=== PATIENT | male | born 1950 | race Caucasian/White ===

== ENCOUNTER 2023-10-07 17:34 | Inpatient (IN) ==
--- NOTE | 2023-10-07 17:47 | Emergency Department Note ---
Impression & Plan Sacral wound, Ascites, Hypotension, CKD (chronic kidney disease) ED Provider Note NAME: LEIA JETER AGE: 73 SEX: M : 1950 ARRIVES VIA: Ambulance INFORMANT: Patient, EMS report ED PROVIDER(S): Saad Sierra MD CHIEF COMPLAINT: Dizziness, hypotension MEDICAL DECISION MAKING: Patient presented due to concern for sacral wound as well as hypotension around. IV was established and blood work was obtained. Patient was ordered empiric antibiotics as a precaution. Sacral wound was noted over the right sacral area surrounding redness noted but does not appear to be blanching but may be from chronic pressure more so than cellulitis. No purulent drainage. The patient is unaware as to whether or not he has any kidney dysfunction but does have associated CKD versus YAHAIRA with creat of 2.5. Patient white count of 11 hemoglobin 12.3 with a normal platelet count. The patient's VBG is grossly unremarkable. Lactate initially 2.8. The patient was ordered additional IV fluids as well as albumin given patient's history of cirrhosis. Procalcitonin is not elevated. Patient did have improvement in blood pressures and maps. Urinalysis does not show evidence of obvious infection. I did speak the on-call hospitalist service Dr. Honeycutt and the patient was admitted to medicine service. Discussion w/ other healthcare providers: Dr. Honeycutt inpatient medicine service Prior /Outside records reviewed: None Differential diagnosis: Infection, dehydration, metabolic abnormality, hypo/hyperglycemia, electrolyte imbalance, anemia, UTI, pneumonia, thyroid dysfunction among others were considered. Diagnostics, as interpreted by me: ECG: Sinus versus possible flutter, ventricular rate 61 wide QRS left axis deviation T wave inversions high lateral leads. Cardiac monitoring: An order was placed for continuous cardiac monitoring. The monitor shows a rate of 62 with regular rhythm. Patient was placed on pulse oximetry Medical decision rules: None Imaging studies: I informally interpreted the patient's Chest x-ray does not show evidence of obvious pneumonia. with formal report to follow. HPI:Patient presents via EMS due to concern for sacral wounds. The patient reports that he currently is in photos taken to them today and thus called EMS. The patient is from [facility] but presented here as the patient has not appreciated the care he is received through [facility]. Patient states that he was in and out of the hospital this last month and recently signed out AMA after transfer from [place] to [facility]. Patient is not on any current antibiotics. The patient reportedly was told that he has cirrhosis of the liver and possible heart condition although unclear as to what this is as the patient is unable describe it other than that. Patient denies any chest pains does have chronic shortness of breath which is unchanged. EMS reports that on arrival to the patient got lightheaded and dizzy they could not get a cycle blood pressure in a manual was 60/40. Patient does have some loose stools report that he does not take metformin. Patient does have a history of diabetes. The patient denies any falls or trauma no head or neck pain. PAST MEDICAL HISTORY: See Below PAST SURGICAL HISTORY: See Below SOCIAL HISTORY: See Below HOME MEDICATIONS: See Below ALLERGIES: See Below VITALS: See Below PHYSICAL EXAMINATION: GENERAL: NAD, non-toxic. Wearing glasses. EYE EXAM: Normal conjunctiva. PERRL, no anisocoria and EOM's grossly intact w/o pain. OROPHARYNX: Dry mucus membranes, false upper teeth in place. NECK: Trachea midline, no stridor. LUNGS: Clear to auscultation. Normal chest wall mechanics. HEART: NSR, possible subtle systolic ejection murmur. ABDOMEN: Abdomen soft, mildly distended, nontender, no masses, no rebound or guarding. BACK: No CVA TTP. SKIN: No rashes and no bruising. UPPER EXTREMITIES: Upper extremities are grossly normal. LOWER EXTREMITIES: Cooler and slightly discolored lower extremities but does have dopplerable pedal pulses bilaterally, sensate no TTP. NEURO EXAM: A&O x3, cranial nerves II-XII grossly intact, normal speech, moves all 4 extremities. Past Med/Surg History Problem List (Updated 10/08/23 @ 15:41 by Saad Sierra MD) CKD (chronic kidney disease) (Acute) Hypotension (Acute) Ascites (Acute) Sacral wound (Acute) Social History Smoking Status: Former smoker Second Hand Exposure: No; Do You Dip or Chew Tobacco: No; Tobacco Cessation Education Requested by Patient: No Hx Alcohol Use: Yes Hx Substance Use: No Preferred Language: Slovak Communication Ability: Effective Business Rules Analyst Required: No Beliefs That Will Affect Care: None Current Living Situation: Spouse Other Information That Helps Us Care for You: No Feels Safe at Home: Yes Safety Concerns: Feels Safe At This Time Assistive Devices: Walker and Other Allergies Allergies Allergy/AdvReac Type Severity Reaction Status Date / Time Unknown allergen Allergy Hives Uncoded 10/07/23 20:24 Home Meds Home Medications Medication Instructions Recorded Confirmed alfuzosin 10 mg tablet,extended 10 mg PO DAILY 10/07/23 10/07/23 release 24 hr apixaban 5 mg tablet (Eliquis) 5 mg PO BID 10/07/23 10/07/23 furosemide 40 mg tablet 40 mg PO DAILY 10/07/23 10/07/23 lisinopril 20 mg tablet 20 mg PO BID 10/07/23 10/07/23 spironolactone 50 mg tablet 100 mg PO DAILY 10/07/23 10/07/23 Results & Data (ED) Vital Signs Vital Signs - 24 hr 10/07/23 17:40 10/07/23 17:41 10/07/23 17:41 Temperature 36.8 C Temperature Source Oral Pulse Rate 64 Pulse Rate [Apical] Pulse Rate from SpO2 Sensor Pulse Rhythm [Apical] Pulse Strength [Apical] Respiratory Rate 16 Respiratory Effort / Characteristics Non-Labored Spontaneous Respiratory Depth Normal Respiratory Pattern Regular Blood Pressure 72/50 L 72/50 L Blood Pressure [Left Arm] Blood Pressure Mean 65 57 Blood Pressure Mean [Left Arm] Blood Pressure Position Lying Pulse Oximetry 98 98 Oxygen Delivery Method Room Air Room Air Sepsis Recent Fever Within 48 Hours No Sepsis New/Unexplained Change in Mental Status N/A Sepsis Action Taken by Nursing No Action Required 10/07/23 17:41 10/07/23 17:45 10/07/23 17:47 Temperature Temperature Source Pulse Rate 65 Pulse Rate [Apical] 67 Pulse Rate from SpO2 Sensor Pulse Rhythm [Apical] Pulse Strength [Apical] Respiratory Rate 16 23 Respiratory Effort / Characteristics Non-Labored Spontaneous Respiratory Depth Normal Respiratory Pattern Blood Pressure Blood Pressure [Left Arm] Blood Pressure Mean Blood Pressure Mean [Left Arm] Blood Pressure Position Pulse Oximetry 93 Oxygen Delivery Method Room Air Room Air Sepsis Recent Fever Within 48 Hours Sepsis New/Unexplained Change in Mental Status Sepsis Action Taken by Nursing 10/07/23 17:49 10/07/23 17:51 10/07/23 17:57 Temperature Temperature Source Pulse Rate 64 68 Pulse Rate [Apical] Pulse Rate from SpO2 Sensor 66 Pulse Rhythm [Apical] Pulse Strength [Apical] Respiratory Rate 24 Respiratory Effort / Characteristics Respiratory Depth Respiratory Pattern Blood Pressure 81/52 L Blood Pressure [Left Arm] Blood Pressure Mean 61 Blood Pressure Mean [Left Arm] Blood Pressure Position Pulse Oximetry 98 Oxygen Delivery Method Sepsis Recent Fever Within 48 Hours Sepsis New/Unexplained Change in Mental Status Sepsis Action Taken by Nursing 10/07/23 18:03 10/07/23 18:06 10/07/23 18:10 Temperature Temperature Source Pulse Rate 60 60 Pulse Rate [Apical] Pulse Rate from SpO2 Sensor 61 60 Pulse Rhythm [Apical] Pulse Strength [Apical] Respiratory Rate 17 22 Respiratory Effort / Characteristics Respiratory Depth Respiratory Pattern Blood Pressure 73/51 L Blood Pressure [Left Arm] Blood Pressure Mean 55 Blood Pressure Mean [Left Arm] Blood Pressure Position Pulse Oximetry 98 97 Oxygen Delivery Method Sepsis Recent Fever Within 48 Hours Sepsis New/Unexplained Change in Mental Status Sepsis Action Taken by Nursing 10/07/23 18:12 10/07/23 18:20 10/07/23 18:21 Temperature Temperature Source Pulse Rate 61 60 Pulse Rate [Apical] Pulse Rate from SpO2 Sensor 61 60 Pulse Rhythm [Apical] Pulse Strength [Apical] Respiratory Rate 23 24 Respiratory Effort / Characteristics Respiratory Depth Respiratory Pattern Blood Pressure 92/56 L Blood Pressure [Left Arm] Blood Pressure Mean 61 Blood Pressure Mean [Left Arm] Blood Pressure Position Pulse Oximetry 97 95 Oxygen Delivery Method Sepsis Recent Fever Within 48 Hours Sepsis New/Unexplained Change in Mental Status Sepsis Action Taken by Nursing 10/07/23 18:30 10/07/23 18:30 10/07/23 18:51 Temperature Temperature Source Pulse Rate 61 63 Pulse Rate [Apical] Pulse Rate from SpO2 Sensor 59 L Pulse Rhythm [Apical] Pulse Strength [Apical] Respiratory Rate 23 19 Respiratory Effort / Characteristics Respiratory Depth Respiratory Pattern Blood Pressure 92/54 L 99/62 L Blood Pressure [Left Arm] Blood Pressure Mean 65 74 Blood Pressure Mean [Left Arm] Blood Pressure Position Pulse Oximetry 97 91 Oxygen Delivery Method Sepsis Recent Fever Within 48 Hours Sepsis New/Unexplained Change in Mental Status Sepsis Action Taken by Nursing 10/07/23 19:17 10/07/23 19:21 10/07/23 19:30 Temperature Temperature Source Pulse Rate 58 L 66 Pulse Rate [Apical] 59 L Pulse Rate from SpO2 Sensor Pulse Rhythm [Apical] Regular Pulse Strength [Apical] Normal Respiratory Rate 16 19 20 Respiratory Effort / Characteristics Non-Labored Spontaneous Respiratory Depth Normal Respiratory Pattern Regular Blood Pressure 91/59 L 87/50 L Blood Pressure [Left Arm] 91/59 L Blood Pressure Mean 69 62 Blood Pressure Mean [Left Arm] 69 Blood Pressure Position Pulse Oximetry 94 88 L 96 Oxygen Delivery Method Room Air Sepsis Recent Fever Within 48 Hours Sepsis New/Unexplained Change in Mental Status Sepsis Action Taken by Nursing 10/07/23 19:39 10/07/23 19:48 10/07/23 20:18 Temperature Temperature Source Pulse Rate 58 L 60 65 Pulse Rate [Apical] Pulse Rate from SpO2 Sensor Pulse Rhythm [Apical] Pulse Strength [Apical] Respiratory Rate 20 20 15 Respiratory Effort / Characteristics Respiratory Depth Respiratory Pattern Blood Pressure 93/55 L 86/53 L 104/63 Blood Pressure [Left Arm] Blood Pressure Mean 67 64 76 Blood Pressure Mean [Left Arm] Blood Pressure Position Pulse Oximetry 96 97 98 Oxygen Delivery Method Sepsis Recent Fever Within 48 Hours Sepsis New/Unexplained Change in Mental Status Sepsis Action Taken by Nursing 10/07/23 20:33 10/07/23 20:39 10/07/23 20:48 Temperature Temperature Source Pulse Rate 62 64 64 Pulse Rate [Apical] Pulse Rate from SpO2 Sensor Pulse Rhythm [Apical] Pulse Strength [Apical] Respiratory Rate 17 25 H 21 Respiratory Effort / Characteristics Respiratory Depth Respiratory Pattern Blood Pressure 112/64 106/66 106/65 Blood Pressure [Left Arm] Blood Pressure Mean 80 79 78 Blood Pressure Mean [Left Arm] Blood Pressure Position Pulse Oximetry 98 97 Oxygen Delivery Method Sepsis Recent Fever Within 48 Hours Sepsis New/Unexplained Change in Mental Status Sepsis Action Taken by Nursing 10/07/23 21:36 10/07/23 21:53 10/07/23 22:06 Temperature Temperature Source Pulse Rate 62 65 63 Pulse Rate [Apical] Pulse Rate from SpO2 Sensor Pulse Rhythm [Apical] Pulse Strength [Apical] Respiratory Rate 15 21 Respiratory Effort / Characteristics Respiratory Depth Respiratory Pattern Blood Pressure 116/72 115/70 Blood Pressure [Left Arm] Blood Pressure Mean 86 85 Blood Pressure Mean [Left Arm] Blood Pressure Position Pulse Oximetry 99 98 Oxygen Delivery Method Room Air Sepsis Recent Fever Within 48 Hours Sepsis New/Unexplained Change in Mental Status Sepsis Action Taken by Nursing 10/07/23 22:18 10/07/23 22:39 10/07/23 22:48 Temperature Temperature Source Pulse Rate 71 60 60 Pulse Rate [Apical] Pulse Rate from SpO2 Sensor Pulse Rhythm [Apical] Pulse Strength [Apical] Respiratory Rate 23 21 24 Respiratory Effort / Characteristics Respiratory Depth Respiratory Pattern Blood Pressure 122/74 122/77 Blood Pressure [Left Arm] Blood Pressure Mean 90 92 Blood Pressure Mean [Left Arm] Blood Pressure Position Pulse Oximetry 91 95 97 Oxygen Delivery Method Room Air Room Air Room Air Sepsis Recent Fever Within 48 Hours Sepsis New/Unexplained Change in Mental Status Sepsis Action Taken by Nursing 10/07/23 23:15 10/07/23 23:30 Temperature Temperature Source Pulse Rate 64 63 Pulse Rate [Apical] Pulse Rate from SpO2 Sensor 63 Pulse Rhythm [Apical] Pulse Strength [Apical] Respiratory Rate 26 H 16 Respiratory Effort / Characteristics Respiratory Depth Respiratory Pattern Blood Pressure 96/64 L 101/61 Blood Pressure [Left Arm] Blood Pressure Mean 71 66 Blood Pressure Mean [Left Arm] Blood Pressure Position Pulse Oximetry 99 95 Oxygen Delivery Method Room Air Room Air Sepsis Recent Fever Within 48 Hours Sepsis New/Unexplained Change in Mental Status Sepsis Action Taken by Shelter Medications Current Medication List: was personally reviewed by me Laboratory Data Attestation: I reviewed the patient's lab results. 10/08/23 05:28 10/08/23 05:28 Lab Results 10/07/23 10/07/23 10/07/23 Range/Units 17:50 18:00 19:53 WBC 11.01 H (4.8-10.8) K/ul RBC 4.12 L (4.70-6.10) M/uL Hgb 12.3 L (14.0-18.0) g/dl POC Hgb 12.2 L (14.0-18.0) g/dl Hct 38.0 L (42.0-52.0) % POC Hct 36 L (42-52) % MCV 92.2 (80.0-100.0) fL MCH 29.9 (25.0-34.0) pg MCHC 32.4 (32.0-36.0) g/dL RDW Std Deviation 60.3 H (36.4-46.3) fL RDW Coeff of Ramu 17.7 H (11.5-14.5) % Plt Count 174 (130-400) K/uL MPV 11.4 (9.4-12.4) fL Immature Gran % (Auto) 0.5 % Neut % (Auto) 69.0 % Lymph % (Auto) 22.7 % Wharton % (Auto) 6.2 % Eos % (Auto) 1.1 % Baso % (Auto) 0.5 % Reticulocyte % (Auto) (0.50-2.00) % Neut # (Auto) 7.60 H (1.40-6.50) K/uL Lymph # (Auto) 2.50 (1.20-3.40) K/uL Wharton # (Auto) 0.68 H (0.11-0.59) K/uL Eos # (Auto) 0.12 (0.00-0.50) K/uL Baso # (Auto) 0.05 (0.00-0.20) K/uL Reticulocyte # (0.020-0.100) 10^6/uL Immature Gran # (Auto) 0.06 (0.01-0.20) K/uL APTT (21-31) Seconds PTT Ratio VBG pH 7.38 (7.36-7.41) VBG pCO2 45 (38-50) mmHg VBG pO2 26 mmHg VBG HCO3 27 mmol/L VBG O2 Saturation < 60.0 % VBG Base Excess 1.0 mEq/L POC Sodium 135 (135-144) mmol/L Sodium 134 L (136-145) mmol/L POC Potassium 4.2 (3.3-5.0) mmol/L Potassium 4.2 (3.5-5.1) mmol/L POC Chloride 97 L (101-112) mmol/L Chloride 98 (98-107) mmol/L Carbon Dioxide 27 (21-32) mmol/L POC Total CO2 24 (24-31) mmol/L Anion Gap 9 (3-11) POC Anion Gap 20.0 (16-25) mmol/L POC BUN 49 H (7-18) mg/dl BUN 57 H (6-23) mg/dl Creatinine 2.52 H (0.6-1.4) mg/dl POC Creatinine 2.7 H (0.6-1.3) mg/dl Est Cr Clr Drug Dosing 31.7 ml/min Est GFR ( Amer) 28.0 ml/min Est GFR (Non-Af Amer) 24.1 ml/min BUN/Creatinine Ratio 22.6 H (10-20) Glucose 145 H (70-99(Fasting)) mg/dl POC Glucose (other) 140 H (70-99) mg/dl Lactate 2.8 H* 3.1 H* (0.4-2.0) mmol/L Calcium 9.4 (8.6-10.3) mg/dl POC Ioniz Calcium Rajendra 1.26 (1.12-1.32) mmol/l Magnesium 1.9 (1.7-2.4) mg/dl Iron (35-175) mcg/dl Transferrin (200-360) mg/dl Ferritin (8-388) ng/ml Total Bilirubin 1.7 H (0.2-1.0) mg/dl Direct Bilirubin 0.7 H (0-0.2) mg/dl AST 16 (13-39) U/L ALT 10 (7-52) U/L Alkaline Phosphatase 117 H (34-104) U/L Troponin I High Sens 26.4 H 23.8 H (0-20) pg/ml Total Protein 7.0 (6.0-8.3) gm/dl Albumin 3.1 L (3.4-5.0) gm/dl Lipase (11-82) U/L Vitamin B12 (180-914) pg/ml Folate (>5.38) ng/ml Procalcitonin 0.23 (0-0.5) ng/ml Urine Color Urine Appearance (Clear) Urine pH (4.5-7.5) Ur Specific Manton (1.000-1.030) Urine Protein (Negative) Urine Glucose (UA) (Negative) Urine Ketones (Negative) Urine Blood (Negative) Urine Nitrite (Negative) Urine Bilirubin (Negative) Urine Urobilinogen (Negative) Ur Leukocyte Esterase (Negative) Urine WBC (Auto) (0-5) /hpf Urine RBC (Auto) (0-2) /hpf U Hyaline Cast (Auto) (0-2) /lpf U Epithel Cells (Auto) (0-2) /hpf Urine Bacteria (Auto) (None Seen) Hyaline Casts (None Presnt) /lpf Urine Mucus (None Prsent) Blood Type Antibody Screen 10/07/23 10/07/23 Range/Units 20:04 22:41 WBC (4.8-10.8) K/ul RBC (4.70-6.10) M/uL Hgb 11.5 L (14.0-18.0) g/dl POC Hgb (14.0-18.0) g/dl Hct 35.1 L (42.0-52.0) % POC Hct (42-52) % MCV (80.0-100.0) fL MCH (25.0-34.0) pg MCHC (32.0-36.0) g/dL RDW Std Deviation (36.4-46.3) fL RDW Coeff of Ramu (11.5-14.5) % Plt Count (130-400) K/uL MPV (9.4-12.4) fL Immature Gran % (Auto) % Neut % (Auto) % Lymph % (Auto) % Wharton % (Auto) % Eos % (Auto) % Baso % (Auto) % Reticulocyte % (Auto) 2.07 H (0.50-2.00) % Neut # (Auto) (1.40-6.50) K/uL Lymph # (Auto) (1.20-3.40) K/uL Wharton # (Auto) (0.11-0.59) K/uL Eos # (Auto) (0.00-0.50) K/uL Baso # (Auto) (0.00-0.20) K/uL Reticulocyte # 0.080 (0.020-0.100) 10^6/uL Immature Gran # (Auto) (0.01-0.20) K/uL APTT 29 (21-31) Seconds PTT Ratio 1.1 VBG pH (7.36-7.41) VBG pCO2 (38-50) mmHg VBG pO2 mmHg VBG HCO3 mmol/L VBG O2 Saturation % VBG Base Excess mEq/L POC Sodium (135-144) mmol/L Sodium (136-145) mmol/L POC Potassium (3.3-5.0) mmol/L Potassium (3.5-5.1) mmol/L POC Chloride (101-112) mmol/L Chloride (98-107) mmol/L Carbon Dioxide (21-32) mmol/L POC Total CO2 (24-31) mmol/L Anion Gap (3-11) POC Anion Gap (16-25) mmol/L POC BUN (7-18) mg/dl BUN (6-23) mg/dl Creatinine (0.6-1.4) mg/dl POC Creatinine (0.6-1.3) mg/dl Est Cr Clr Drug Dosing ml/min Est GFR ( Amer) ml/min Est GFR (Non-Af Amer) ml/min BUN/Creatinine Ratio (10-20) Glucose (70-99(Fasting)) mg/dl POC Glucose (other) (70-99) mg/dl Lactate 2.6 H* (0.4-2.0) mmol/L Calcium (8.6-10.3) mg/dl POC Ioniz Calcium Rajendra (1.12-1.32) mmol/l Magnesium (1.7-2.4) mg/dl Iron 46 (35-175) mcg/dl Transferrin 156 L (200-360) mg/dl Ferritin 714.0 H (8-388) ng/ml Total Bilirubin (0.2-1.0) mg/dl Direct Bilirubin (0-0.2) mg/dl AST (13-39) U/L ALT (7-52) U/L Alkaline Phosphatase (34-104) U/L Troponin I High Sens 23.9 H (0-20) pg/ml Total Protein (6.0-8.3) gm/dl Albumin (3.4-5.0) gm/dl Lipase 34 (11-82) U/L Vitamin B12 690 (180-914) pg/ml Folate 12.45 (>5.38) ng/ml Procalcitonin (0-0.5) ng/ml Urine Color Yellow Urine Appearance Clear (Clear) Urine pH 5.5 (4.5-7.5) Ur Specific M[place] 1.014 (1.000-1.030) Urine Protein Trace H (Negative) Urine Glucose (UA) Negative (Negative) Urine Ketones Negative (Negative) Urine Blood Trace H (Negative) Urine Nitrite Negative (Negative) Urine Bilirubin Negative (Negative) Urine Urobilinogen Negative (Negative) Ur Leukocyte Esterase 2+ H (Negative) Urine WBC (Auto) 11-20 H (0-5) /hpf Urine RBC (Auto) 0-2 (0-2) /hpf U Hyaline Cast (Auto) >20 H (0-2) /lpf U Epithel Cells (Auto) 0-2 (0-2) /hpf Urine Bacteria (Auto) None Seen (None Seen) Hyaline Casts Present A (None Presnt) /lpf Urine Mucus Present A (None Prsent) Blood Type O Positive Antibody Screen NEGATIVE Administered Medications Doxycycline Hyclate (Doxycycline Hyclate 100 Mg Cap) 100 mg PO BID ROYAL Stop: 10/15/23 08:59 Last Admin: 10/08/23 08:04 Dose: 100 mg Documented By: JOSEPH Piperacillin Sod/Tazobactam Sod (Zosyn) 4.5 gm in 100 mls @ 25 mls/hr IV Q8H ROYAL Stop: 10/18/23 01:59 Last Infusion: 10/08/23 13:28 Dose: Infused Documented By: Admin: 10/08/23 09:23 Dose: 25 mls/hr Documented By: Infusion: 10/08/23 07:09 Dose: Infused Documented By: Admin: 10/08/23 02:34 Dose: 25 mls/hr Documented By: RAFAELA Albumin Human (Albumin 25%) 25 gm in 100 mls @ 50 mls/hr IV Q8H ROYAL Stop: 10/11/23 03:59 Last Admin: 10/08/23 13:27 Dose: 50 mls/hr Documented By: Infusion: 10/08/23 07:09 Dose: Infused Documented By: Admin: 10/08/23 04:43 Dose: 50 mls/hr Documented By: LITO Pantoprazole Sodium 40 mg/ (Syringe) 10 mls @ 5 mls/min IV BID [facility] Stop: 11/07/23 09:59 Last Admin: 10/08/23 13:27 Dose: 5 mls/min Documented By: JOSEPH Insulin Aspart (Insulin Aspart Per Unit Charge) 0 units SC Q6H ROYAL Stop: 11/07/23 02:59 Last Admin: 10/08/23 08:56 Dose: Not Given Documented By: Admin: 10/08/23 02:41 Dose: Not Given Documented By: RAFAELA Midodrine (Midodrine Hcl 2.5 Mg Tab) 2.5 mg PO TID@0800,1200,1700 ROYAL Stop: 11/07/23 07:59 Last Admin: 10/08/23 13:27 Dose: 2.5 mg Documented By: Admin: 10/08/23 08:04 Dose: 2.5 mg Documented By: JOSEPH Senna/Docusate Sodium (Docusate Sodium/Senna 50/8.6mg Tab) 1 tab PO QAM ROYAL Stop: 11/07/23 08:59 Last Admin: 10/08/23 08:04 Dose: 1 tab Documented By: JOSEPH Discontinued Medications Albuterol (Albut/Ipratrop 3mg/0.5mg Neb 3 Ml Vial) 3 ml NEB NOW STA; Protocol Stop: 10/07/23 20:40 Last Admin: 10/07/23 21:16 Dose: Not Given Documented By: TORRIE Fentanyl Citrate (Fentanyl Citrate Pf 100 Mcg/2 Ml Vial) Confirm Administered Dose 100 mcg .ROUTE .STK-MED ONE Stop: 10/08/23 10:51 Last Admin: 10/08/23 12:17 Dose: Not Given Documented By: JOSEPH Sodium Chloride (Nss) 1,000 mls @ 999 mls/hr IV .Q1H1M [facility] Stop: 10/07/23 19:00 Last Infusion: 10/07/23 19:15 Dose: Infused Documented By: Admin: 10/07/23 17:57 Dose: 999 mls/hr Documented By: NEIDA Piperacillin Sod/Tazobactam Sod (Zosyn) 4.5 gm in 100 mls @ 200 mls/hr IV NOW STA Stop: 10/07/23 18:16 Last Infusion: 10/07/23 19:15 Dose: Infused Documented By: Admin: 10/07/23 18:21 Dose: 200 mls/hr Documented By: NEIDA Sodium Chloride (Nss) 500 mls @ 999 mls/hr IV .Q31M ONE Stop: 10/07/23 19:20 Last Infusion: 10/07/23 19:59 Dose: Infused Documented By: Admin: 10/07/23 19:12 Dose: 999 mls/hr Documented By: TORRIE Albumin Human (Albumin 25%) 25 gm in 100 mls @ 50 mls/hr IV ONE ONE Stop: 10/07/23 20:49 Last Infusion: 10/07/23 21:37 Dose: Infused Documented By: Admin: 10/07/23 19:08 Dose: 50 mls/hr Documented By: TORRIE Doxycycline Hyclate 100 mg/ (Dextrose) 100 mls @ 50 mls/hr IV NOW STA Stop: 08/27/24 22:38 Last Infusion: 10/08/23 00:02 Dose: Infused Documented By: Admin: 10/07/23 21:15 Dose: 50 mls/hr Documented By: TORRIE Albumin Human (Albumin 25%) 25 gm in 100 mls @ 50 mls/hr IV ONE ONE Stop: 10/07/23 23:14 Last Infusion: 10/08/23 00:03 Dose: Infused Documented By: Admin: 10/07/23 21:44 Dose: 50 mls/hr Documented By: TORRIE Midodrine (Midodrine Hcl 2.5 Mg Tab) 2.5 mg PO NOW STA Stop: 10/07/23 20:57 Last Admin: 10/07/23 21:15 Dose: 2.5 mg Documented By: TORRIE Nitroglycerin (Nitroglycerin Sl 0.4 Mg/Tab Tab) 0.4 mg SL NOW STA Stop: 10/07/23 21:59 Last Admin: 10/07/23 22:33 Dose: Not Given Documented By: MARCELINO Discharge Plan Visit Data Chief Complaint: Hypotension Stated Complaint: dizziness ED Provider: Saad Sierra Discharge Problem: Sacral wound, Ascites, Hypotension, CKD (chronic kidney disease) Patient Disposition: Admitted As Inpatient Discharge Instructions Interventions: ED Discharge Assessment Last Done: 10/08/23 00:32 Discharge Problem: Sacral wound Qualifiers: Encounter type: initial encounter Qualified Code(s): S31.000A - Unspecified open wound of lower back and pelvis without penetration into retroperitoneum, initial encounter Hypotension Qualifiers: Hypotension type: unspecified hypotension type Qualified Code(s): I95.9 - Hypotension, unspecified CKD (chronic kidney disease) Qualifiers: Chronic kidney disease stage: unspecified stage Qualified Code(s): N18.9 - Chronic kidney disease, unspecified
[2023-10-07] MEDS: SODIUM CHLORIDE 0.9% 1,000 ML IV SCH (17:57)
[2023-10-07 18:06] LABS: HCO3 VBG 27 mmol/L; Oxygen Saturation VBG < 60.0 %; PCO2 VBG 45 mmHg (38-50); PO2 VBG 26 mmHg; pH VBG 7.38 (7.36-7.41)
[2023-10-07 18:11] LABS: Basophils # (auto) 0.05 K/uL (0.00-0.20); Basophils % (auto) 0.5 %; Eosinophils # (auto) 0.12 K/uL (0.00-0.50); Eosinophils % (auto) 1.1 %; Hemoglobin 12.3 g/dl (14.0-18.0); Immature Granulocytes # (auto) 0.06 K/uL (0.01-0.20); Immature Granulocytes % (auto) 0.5 %; Lymphocytes % (auto) 22.7 %; Mean Corpuscular Hemoglobin 29.9 pg (25.0-34.0); Mean Corpuscular Hgb Conc 32.4 g/dL (32.0-36.0); Mean Corpuscular Volume 92.2 fL (80.0-100.0); Mean Platelet Volume 11.4 fL (9.4-12.4); Monocytes # (auto) 0.68 K/uL (0.11-0.59); Monocytes % (auto) 6.2 %; Platelet Count 174 K/uL (130-400); RDW Coefficient of Variation 17.7 % (11.5-14.5); RDW Standard Deviation 60.3 fL (36.4-46.3); Red Blood Count 4.12 M/uL (4.70-6.10); White Blood Count 11.01 K/ul (4.8-10.8)
[2023-10-07 18:12] LABS: iSTAT Creatinine 2.7 mg/dl (0.6-1.3); iSTAT Hemoglobin 12.2 g/dl (14.0-18.0); iSTAT Ionized Calcium 1.26 mmol/l (1.12-1.32); iSTAT Potassium 4.2 mmol/L (3.3-5.0)
[2023-10-07] MEDS: PIPERACILLIN/TAZOBACTAM 4.5 GM/100 ML BAG IV STA (18:21)
[2023-10-07 18:29] LABS: Albumin Level 3.1 gm/dl (3.4-5.0); BUN Creatinine Ratio 22.6 (10-20); Bilirubin Direct 0.7 mg/dl (0-0.2); Bilirubin,Total 1.7 mg/dl (0.2-1.0); Calcium 9.4 mg/dl (8.6-10.3); Creatinine Clr Calc Pharmacy 31.7 ml/min; Est GFR (Non-African American) 24.1 ml/min; Magnesium 1.9 mg/dl (1.7-2.4); Potassium 4.2 mmol/L (3.5-5.1)
[2023-10-07 18:35] LABS: Troponin I High Sensitivity 26.4 pg/ml (0-20)
[2023-10-07] MEDS: ALBUMIN 25% 25 GM/100 ML VIAL IV ONE ×2 (19:08→21:44)
[2023-10-07] MEDS: SODIUM CHLORIDE 0.9% 500 ML IV ONE (19:12)
--- NOTE | 2023-10-07 19:26 | XRay Report ---
SINGLE VIEW CHEST CLINICAL HISTORY: Sepsis FINDINGS: An AP, portable, upright chest radiograph is obtained. No prior studies are available for c omparison at the time of dictation. The heart is enlarged noting atherosclerotic calcification of the thoracic aorta. There is pulmonary vascular congestion. There is a small right pleural effusion. Ate lectasis is noted at the lung bases. No pneumothorax is seen. The skeletal structures are osteopenic. The bony thorax is grossly intact. Arthritic change is seen in the shoulders. IMPRESSION: 1. Cardiomegaly with pulmonary vascular congestion. 2. Small right pleural effusion. ACT 112: Negative or not required by law. Electronically signed by: Nestor Mabry M.D. 10/07/2023 7:25 PM
[2023-10-07 20:44] LABS: Appearance Urine Clear (Clear); Bacteria Urine Automated None Seen (None Seen); Bilirubin Urine Negative (Negative); Blood Urine Trace (Negative); Cast Urine Automated >20 /lpf (0-2); Color Urine Yellow; Epithelial Cell Urine Auto 0-2 /hpf (0-2); Glucose Urine UA Negative (Negative); Hyaline Casts Urine Present /lpf (None Presnt); Ketones Urine Negative (Negative); Leukocyte Esterase Urine 2+ (Negative); Mucus Urine Present (None Prsent); Nitrite Urine Negative (Negative); Protein Urine Trace (Negative); RBC Urine Automated 0-2 /hpf (0-2); Specific Gravity Urine 1.014 (1.000-1.030); Urobilinogen Urine Negative (Negative); pH Urine 5.5 (4.5-7.5)
--- NOTE | 2023-10-07 20:50 | History & Physical Report ---
Date of Service October 07, 2023 Assessment & Plan (1) Hypotension: Plan: ARF, hypovolemia CHF as per records Equivocal volume status as patient seems intravascularly dry w some congestion on imaging Loculated right-sided peritoneal fluid collection, recent paracentesis at the [facility] last month Infected sacral decubitus wound Complicated UTI No sepsis for now Left-sided chest pain with troponin elevation Anemia secondary to LGIB (blood-streaked stools from constipation), unknown baseline A-fib ("heart disease as per patient") on Eliquis Rx, rate controlled cirrhosis likely secondary to NAFLD, currently compensated DM2 on oral medications, unknown baseline control Possible deconditioning past tobacco abuse PCU IV albumin Midodrine Appropriate to hold home BP meds and diuretics for now given hypotension TTE, Cardiology consult Re: Chest pain and hypotension Zosyn for intra-abdominal fluid collection, complicated UTI, and infected decubitus wound Add doxycycline for MRSA coverage for decubitus wound General Surgery consult Re: Intra-abdominal fluid collection N.p.o. in anticipation of procedures Anemia workup, transfuse PRBC if hemoglobin less than 7 and or for symptomatic anemia Follow renal function, Nephrology consult if without improvement Crucial to retrieve records from recent admission at the [facility] last month Hold Eliquis for now given LGIB ISS BG goal 1 10-1 40, check hemoglobin A1c PT OT eval once medically stable DVT prophylaxis. SCDs RE LGIB DNR Total critical care time was 45 minutes. Text document was generated using [employer] voice recognition software. It may contain grammatical or spelling errors. Kindly contact undersigned for clarification of any documentation item in question. History of Present Illness Chief Complaint: Buttock wound, dizziness, low blood pressure Primary Care Provider: Dr. Parikh History obtained from patient and records. Medical history significant for CHF, hypertension, Eliquis Rx for heart disease, cirrhosis, DM2 on oral medications, BPH, left buttock wound, past tobacco abuse. Recent confinement at [facility] last month for abdominal distention and leg swelling attributed to heart issues as per patient. Patient told he had heart and liver disease. Fluid had to be removed from his belly. Discharged new medications to [facility] which include blood pressure medicines and a blood thinner. Patient left [facility] AGAINST MEDICAL ADVICE because he was not happy with the care. Progressive illness since leaving [place]. Increased abdominal distention with right sided discomfort. Worsening left buttock wound pain. Constipation resulting in hematochezia. No emesis. Usual SOB on exertion. Chronic cough symptoms. Dizziness described as lightheadedness. Transient headache symptoms. Lowest SBP of 60s noted at home from time to time. Today, patient noted intermittent left-sided chest pain. EMS called to patient's home by home health today. SBP 70s upon arrival at the ER. IV Zosyn and IV fluids administered at the ER. Medical History as above Surgical History : Hernia surgery Family History : Lung cancer, breast cancer Personal/Social history : Past tobacco abuse, no EtOH intake, retired [employer] employee Allergies Allergy/AdvReac Type Severity Reaction Status Date / Time Unknown allergen Allergy Hives Uncoded 10/07/23 20:24 Home Medications Medication Instructions Recorded Confirmed Type alfuzosin 10 mg tablet,extended 10 mg PO DAILY 10/07/23 10/07/23 History release 24 hr apixaban 5 mg tablet (Eliquis) 5 mg PO BID 10/07/23 10/07/23 History furosemide 40 mg tablet 40 mg PO DAILY 10/07/23 10/07/23 History lisinopril 20 mg tablet 20 mg PO BID 10/07/23 10/07/23 History spironolactone 50 mg tablet 100 mg PO DAILY 10/07/23 10/07/23 History Past Med/Surg History Problem List (Updated 10/08/23 @ 06:38 by Manolo Honeycutt MD) Hypotension Ascites Sacral wound Social History Smoking Status: Former smoker Second Hand Exposure: No; Do You Dip or Chew Tobacco: No; Tobacco Cessation Education Requested by Patient: No Hx Alcohol Use: Yes Hx Substance Use: No Preferred Language: Turkmen Communication Ability: Effective 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 Beliefs That Will Affect Care: None Current Living Situation: Spouse Other Information That Helps Us Care for You: No Feels Safe at Home: Yes Safety Concerns: Feels Safe At This Time Assistive Devices: Walker Review of Systems Review of Systems: As per HPI, all other systems reviewed and negative Physical Exam Physical Exam: GENERAL: Comfortable, obese, no respiratory distress SKIN: Pallor, warm HEENT: Pale palpebral conjunctivae, no ptosis, dry buccal mucosa NECK : Supple, no tenderness CHEST : CTA, no tenderness HEART : Irregular, no obvious murmurs ABDOMEN: Some distention, right-sided abdominal tenderness BACK : Ulcerated wound, left buttock with foul-smelling yellow dried drainage EXTREMITIES : Bilateral LE venous stasis, no tenderness, no other conspicuous deformities noted NEUROLOGIC : Coherent, no facial asymmetry, no other gross focality Results & Data Results & Data Vital Signs (Past 12 Hours) Vital Signs Temp Pulse Pulse Resp BP BP Pulse Ox 10/07/23 20:39 64 25 H 106/66 98 10/07/23 20:33 62 17 112/64 79 L 10/07/23 20:18 65 15 104/63 98 10/07/23 19:48 60 20 86/53 L 97 10/07/23 19:39 58 L 20 93/55 L 96 10/07/23 19:30 66 20 87/50 L 96 10/07/23 19:21 58 L 19 91/59 L 88 L 10/07/23 19:17 59 L 16 91/59 L 94 10/07/23 18:51 63 19 99/62 L 91 10/07/23 18:30 92/54 L 10/07/23 18:30 61 23 97 10/07/23 18:21 60 24 95 10/07/23 18:20 92/56 L 10/07/23 18:12 61 23 97 10/07/23 18:10 73/51 L 10/07/23 18:06 60 22 97 10/07/23 18:03 60 17 98 10/07/23 17:57 81/52 L 10/07/23 17:51 68 24 98 10/07/23 17:49 64 10/07/23 17:47 93 10/07/23 17:45 65 23 10/07/23 17:41 67 16 10/07/23 17:41 98 10/07/23 17:41 36.8 C 64 16 72/50 L 98 10/07/23 17:40 72/50 L O2 Del Method 10/07/23 20:39 10/07/23 20:33 10/07/23 20:18 10/07/23 19:48 10/07/23 19:39 10/07/23 19:30 10/07/23 19:21 10/07/23 19:17 Room Air 10/07/23 18:51 10/07/23 18:30 10/07/23 18:30 10/07/23 18:21 10/07/23 18:20 10/07/23 18:12 10/07/23 18:10 10/07/23 18:06 10/07/23 18:03 10/07/23 17:57 10/07/23 17:51 10/07/23 17:49 10/07/23 17:47 Room Air 10/07/23 17:45 10/07/23 17:41 Room Air 10/07/23 17:41 Room Air 10/07/23 17:41 Room Air 10/07/23 17:40 Laboratory Results Laboratory Results WBC 11.01 K/ul (4.8-10.8) H 10/07/23 17:50 RBC 4.12 M/uL (4.70-6.10) L 10/07/23 17:50 Hgb 12.3 g/dl (14.0-18.0) L 10/07/23 17:50 POC Hgb 12.2 g/dl (14.0-18.0) L 10/07/23 18:00 Hct 38.0 % (42.0-52.0) L 10/07/23 17:50 POC Hct 36 % (42-52) L 10/07/23 18:00 MCV 92.2 fL (80.0-100.0) 10/07/23 17:50 MCH 29.9 pg (25.0-34.0) 10/07/23 17:50 MCHC 32.4 g/dL (32.0-36.0) 10/07/23 17:50 RDW Std Deviation 60.3 fL (36.4-46.3) H 10/07/23 17:50 RDW Coeff of Ramu 17.7 % (11.5-14.5) H 10/07/23 17:50 Plt Count 174 K/uL (130-400) 10/07/23 17:50 MPV 11.4 fL (9.4-12.4) 10/07/23 17:50 Immature Gran % (Auto) 0.5 % 10/07/23 17:50 Neut % (Auto) 69.0 % 10/07/23 17:50 Lymph % (Auto) 22.7 % 10/07/23 17:50 [place] % (Auto) 6.2 % 10/07/23 17:50 Eos % (Auto) 1.1 % 10/07/23 17:50 Baso % (Auto) 0.5 % 10/07/23 17:50 Neut # (Auto) 7.60 K/uL (1.40-6.50) H 10/07/23 17:50 Lymph # (Auto) 2.50 K/uL (1.20-3.40) 10/07/23 17:50 [place] # (Auto) 0.68 K/uL (0.11-0.59) H 10/07/23 17:50 Eos # (Auto) 0.12 K/uL (0.00-0.50) 10/07/23 17:50 Baso # (Auto) 0.05 K/uL (0.00-0.20) 10/07/23 17:50 Immature Gran # (Auto) 0.06 K/uL (0.01-0.20) 10/07/23 17:50 VBG pH 7.38 (7.36-7.41) 10/07/23 17:50 VBG pCO2 45 mmHg (38-50) 10/07/23 17:50 VBG pO2 26 mmHg 10/07/23 17:50 VBG HCO3 27 mmol/L 10/07/23 17:50 VBG O2 Saturation < 60.0 % 10/07/23 17:50 VBG Base Excess 1.0 mEq/L 10/07/23 17:50 POC Sodium 135 mmol/L (135-144) 10/07/23 18:00 Sodium 134 mmol/L (136-145) L 10/07/23 17:50 POC Potassium 4.2 mmol/L (3.3-5.0) 10/07/23 18:00 Potassium 4.2 mmol/L (3.5-5.1) 10/07/23 17:50 POC Chloride 97 mmol/L (101-112) L 10/07/23 18:00 Chloride 98 mmol/L (98-107) 10/07/23 17:50 Carbon Dioxide 27 mmol/L (21-32) 10/07/23 17:50 POC Total CO2 24 mmol/L (24-31) 10/07/23 18:00 Anion Gap 9 (3-11) 10/07/23 17:50 POC Anion Gap 20.0 mmol/L (16-25) 10/07/23 18:00 POC BUN 49 mg/dl (7-18) H 10/07/23 18:00 BUN 57 mg/dl (6-23) H 10/07/23 17:50 Creatinine 2.52 mg/dl (0.6-1.4) H 10/07/23 17:50 POC Creatinine 2.7 mg/dl (0.6-1.3) H 10/07/23 18:00 Est Cr Clr Drug Dosing 31.7 ml/min 10/07/23 17:50 Est GFR ( Amer) 28.0 ml/min 10/07/23 17:50 Est GFR (Non-Af Amer) 24.1 ml/min 10/07/23 17:50 BUN/Creatinine Ratio 22.6 (10-20) H 10/07/23 17:50 Glucose 145 mg/dl (70-99(Fasting)) H 10/07/23 17:50 POC Glucose (other) 140 mg/dl (70-99) H 10/07/23 18:00 Lactate 3.1 mmol/L (0.4-2.0) H* 10/07/23 19:53 Calcium 9.4 mg/dl (8.6-10.3) 10/07/23 17:50 POC Ioniz Calcium Rajendra 1.26 mmol/l (1.12-1.32) 10/07/23 18:00 Magnesium 1.9 mg/dl (1.7-2.4) 10/07/23 17:50 Total Bilirubin 1.7 mg/dl (0.2-1.0) H 10/07/23 17:50 Direct Bilirubin 0.7 mg/dl (0-0.2) H 10/07/23 17:50 AST 16 U/L (13-39) 10/07/23 17:50 ALT 10 U/L (7-52) 10/07/23 17:50 Alkaline Phosphatase 117 U/L (34-104) H 10/07/23 17:50 Troponin I High Sens 26.4 pg/ml (0-20) H 10/07/23 17:50 Total Protein 7.0 gm/dl (6.0-8.3) 10/07/23 17:50 Albumin 3.1 gm/dl (3.4-5.0) L 10/07/23 17:50 Procalcitonin 0.23 ng/ml (0-0.5) 10/07/23 17:50 Urine Color Yellow 10/07/23 20:04 Urine Appearance Clear (Clear) 10/07/23 20:04 Urine pH 5.5 (4.5-7.5) 10/07/23 20:04 Ur Specific [place] 1.014 (1.000-1.030) 10/07/23 20:04 Urine Protein Trace (Negative) H 10/07/23 20:04 Urine Glucose (UA) Negative (Negative) 10/07/23 20:04 Urine Ketones Negative (Negative) 10/07/23 20:04 Urine Blood Trace (Negative) H 10/07/23 20:04 Urine Nitrite Negative (Negative) 10/07/23 20:04 Urine Bilirubin Negative (Negative) 10/07/23 20:04 Urine Urobilinogen Negative (Negative) 10/07/23 20:04 Ur Leukocyte Esterase 2+ (Negative) H 10/07/23 20:04 Urine WBC (Auto) 11-20 /hpf (0-5) H 10/07/23 20:04 Urine RBC (Auto) 0-2 /hpf (0-2) 10/07/23 20:04 U Hyaline Cast (Auto) >20 /lpf (0-2) H 10/07/23 20:04 U Epithel Cells (Auto) 0-2 /hpf (0-2) 10/07/23 20:04 Urine Bacteria (Auto) None Seen (None Seen) 10/07/23 20:04 Hyaline Casts Present /lpf (None Presnt) A 10/07/23 20:04 Urine Mucus Present (None Prsent) A 10/07/23 20:04 Impressions Chest X-Ray 10/07/23 17:47 SINGLE VIEW CHEST CLINICAL HISTORY: Sepsis FINDINGS: An AP, portable, upright chest radiograph is obtained. No prior studies are available for comparison at the time of dictation. The heart is enlarged noting atherosclerotic calcification of the thoracic aorta. There is pulmonary vascular congestion. There is a small right pleural effusion. Atelectasis is noted at the lung bases. No pneumothorax is seen. The skeletal structures are osteopenic. The bony thorax is grossly intact. Arthritic change is seen in the shoulders. IMPRESSION: 1. Cardiomegaly with pulmonary vascular congestion. 2. Small right pleural effusion. ACT 112: Negative or not required by law. Electronically signed by: Nestor Mabry M.D. 10/07/2023 7:[address] head: No acute intracranial hemorrhage, midline shift, or mass effect. CT abdomen pelvis: 1. Partially loculated fluid collection on the RIGHT side of the abdomen, measuring approximately 34.4 x 14.1 x 21.4 cm. This may represent ascites. 2. Small RIGHT pleural effusion. 3. Nonobstructing LEFT renal stones measuring up to 4 mm. 4. Left-sided decubitus ulcer extends to the ischial tuberosity. This is only partially included in the [id number], correlate with physical exam. Diagnostic Findings EKG as per my interpretation : Rate 65, LAD, LAFB, incomplete RBBB, no ischemia
[2023-10-07] MEDS: DOXYCYCLINE HYCLATE 100 MG in DEXTROSE 5% MINI-B 100 ML IV STA (21:15)
[2023-10-07] MEDS: MIDODRINE HCL 2.5 MG TAB PO STA (21:15)
[2023-10-07] MEDS: ALBUT/IPRATROP 3MG/0.5MG NEB 3 ML VIAL NEB STA (21:16)
[2023-10-07] MEDS ORDERED: ACETAMINOPHEN 500 MG TAB PO PRN (21:59)
[2023-10-07] MEDS: NITROGLYCERIN SL 0.4 MG/TAB TAB SL STA (22:33)
[2023-10-07 22:55] LABS: Hematocrit (blood only) 35.1 % (42.0-52.0); Hemoglobin 11.5 g/dl (14.0-18.0); Reticulocyte % 2.07 % (0.50-2.00); Reticulocytes # 0.08 10^6/uL (0.020-0.100)
[2023-10-07 23:19] LABS: Troponin I High Sensitivity 23.9 pg/ml (0-20)
[2023-10-07 23:34] LABS: Partial Thromboplastin Ratio 1.1; Partial Thromboplastin Time 29 Seconds (21-31)
[2023-10-07] MEDS ORDERED: ALBUT/IPRATROP 3MG/0.5MG NEB 3 ML VIAL NEB PRN (23:35)
[2023-10-07 23:38] LABS: Folate (Folic Acid),Ser orPlas 12.45 ng/ml (>5.38)
--- NOTE | 2023-10-07 23:52 | CT Scan Report ---
Exam(s): CT HEAD Without Contrast EXAM: CT Head Without Intravenous Contrast CLINICAL HISTORY: Reason for exam: clarke, eliquis. TECHNIQUE: Axial computed tomography images of the head/brain without intravenous contrast. CTDI is . Tentative 62.75 mGy and DLP is 1098.96 mGy-cm. Automated exposure control was utilized for the study. A dose lowering technique was utilized adhering to the principles of ALARA. COMPARISON: No relevant prior studies available. FINDINGS: No acute intracranial hemorrhage. No midline shift or mass effect. The territorial gongora-white matter differentiation is maintained throughout. Age-related cerebral volume loss. Periventricular and subcortical white matter hypoattenuation, consistent with chronic microangiopathy. The visualized orbits appear grossly unremarkable. The calvarium is intact. The visualized paranasal sinuses and mastoid air cells are grossly clear. IMPRESSION: No acute intracranial hemorrhage, midline shift, or mass effect. Electronically signed by: Wang Sánchez MD 10/07/23 23:50 PM
[2023-10-08] MEDS ORDERED: NITROGLYCERIN SL 0.4 MG/TAB TAB SL PRN (00:32)
--- NOTE | 2023-10-08 01:02 | CT Scan Report ---
Exam(s): CT ABDOMEN + PELVIS Without Contrast EXAM: CT Abdomen and Pelvis Without Intravenous Contrast CLINICAL HISTORY: Reason for exam: abd pain. TECHNIQUE: Axial computed tomography images of the abdomen and pelvis without intravenous contrast. CTDI is 27.82 mGy and DLP is 1621.56 mGy-cm. Automated exposure control was utilized for the study. A dose lowering technique was utilized adhering to the principles of ALARA. COMPARISON: No relevant prior studies available. FINDINGS: Lung bases: Unremarkable. No mass. No consolidation. Pleural space: Small RIGHT pleural effusion. ABDOMEN: Liver: Unremarkable. Gallbladder and bile ducts: Unremarkable. No calcified stones. No ductal dilation. Pancreas: Unremarkable. No ductal dilation. Spleen: Unremarkable. No splenomegaly. Adrenals: Unremarkable. No mass. Kidneys and ureters: Nonobstructing LEFT renal stones measuring up to 4 mm. RIGHT upper pole renal cyst measures 4 cm. Stomach and bowel: Unremarkable. No obstruction. No mucosal thickening. PELVIS: Appendix: No findings to suggest acute appendicitis. Bladder: Unremarkable. No stones. Reproductive: Unremarkable as visualized. ABDOMEN and PELVIS: Intraperitoneal space: Partially loculated fluid collection on the RIGHT side of the abdomen, measuring approximately 34.4 x 14.1 x 21.4 cm. This may represent ascites. No free air. Bones/joints: Left-sided decubitus ulcer extends to the ischial tuberosity. This is only partially included in the [id number], correlate with physical exam. No acute fracture. No dislocation. Soft tissues: Unremarkable. Vasculature: Unremarkable. No abdominal aortic aneurysm. Lymph nodes: Unremarkable. No enlarged lymph nodes. IMPRESSION: 1. Partially loculated fluid collection on the RIGHT side of the abdomen, measuring approximately 34.4 x 14.1 x 21.4 cm. This may represent ascites. 2. Small RIGHT pleural effusion. 3. Nonobstructing LEFT renal stones measuring up to 4 mm. 4. Left-sided decubitus ulcer extends to the ischial tuberosity. This is only partially included in the [id number], correlate with physical exam. Electronically signed by: Wang Sánchez MD 10/08/23 01:01 AM
[2023-10-08] MEDS ORDERED: GLUCOSE 40% GEL 15 GM TUBE PO PRN (01:52)
[2023-10-08] MEDS ORDERED: GLUCOSE 10 TAB/TUBE PO PRN (01:52)
[2023-10-08] MEDS ORDERED: GLUCAGON FOR INJ 1 MG VIAL SQ PRN (01:52)
[2023-10-08] MEDS ORDERED: DEXTROSE 50% 50 ML SYRINGE IV PRN (01:52)
[2023-10-08] MEDS ORDERED: CARBOHYDRATES FOR HYPOGLYCEMIA PO PRN (01:52)
[2023-10-08] MEDS: PIPERACILLIN/TAZOBACTAM 4.5 GM/100 ML BAG IV SCH (02:34)
[2023-10-08] MEDS: INSULIN ASPART PER UNIT CHARGE SC SCH ×2 (02:41→16:48)
--- NOTE | 2023-10-08 03:18 | Surgery Consultation ---
Date of Consultation October 08, 2023 Assessment & Plan (1) Sacral wound: (2) Ascites: Patient has been admitted on the hospitalist service. From surgery perspective we recommend the following: Concerning the patient's sacral to recommend offloading measures and consulting wound care nurse for further recommendations Concerning the patient's intra-abdominal fluid collection this likely represents ascites. Would recommend enlisting the help of interventional radiology to see if this loculated fluid collection could be drained percutaneously The hospital service has initiated antibiotics in the form of Zosyn and this should continue while patient is hospitalized Serial labs should be followed Additional recommendations be forthcoming based on his clinical course as it unfolds Supervising Physician Co-Signing Physician Notes Patient seen and examined, labs and imaging reviewed, agree with above. Peritoneal drain placed today, will continue await GI input. Left ischial tuberosity wound with some slough and fibrinous exudate, no obvious infection. Will await wound card recommendations. Would make n.p.o. after midnight if surgical debridement is necessary. History of Present Illness Reason for Consultation: Intra-abdominal fluid collection Attending Physician: Avril Torres MD History of Present Illness This is a 73-year-old male who presented to the emergency department at the recommendation of visiting nurses. Patient was noted to have a developing sacral wound and he also had recent care at multiple hospitals in the [facility]. The patient reports that approximately 3 weeks ago he underwent a paracentesis and he was told that he had underlying liver disease. The patient denies any abdominal pain. He denies any fevers, shakes, or chills. He denies any nausea or vomiting. Since arrival to hospital patient has had labs and imaging which independent reviewed. A CT scan of the head showed no acute intracranial hemorrhage. Chest x-ray showed some pulmonary vascular congestion and a small right pleural effusion. A CT scan of the abdomen pelvis showed the patient had a partially loculated fluid collection on the right side of the abdomen measuring 34.4 x 14.1 x 21.4 cm. Patient was also noted to have a left-sided decubitus ulcer extending to the ischial tuberosity. Labs included CBC white blood cell count was elevated 11.0. Hemoglobin and hematocrit are 11.5 and 35.1. Platelet count was normal. Chemistry profile showed sodium was 134 with a normal potassium. BUN and creatinine were 57 and 2.5. Lactic acid level is 2.6. Urinalysis showed 2+ leukocyte Estrace with 11-20 white blood cells per high-power field. There is no bacteria on the study. At the time my interview the patient is resting comfortably in bed he is in no distress. Allergies Allergy/AdvReac Type Severity Reaction Status Date / Time Unknown allergen Allergy Hives Uncoded 10/07/23 20:24 Home Medications Medication Instructions Recorded Confirmed Type alfuzosin 10 mg tablet,extended 10 mg PO DAILY 10/07/23 10/07/23 History release 24 hr apixaban 5 mg tablet (Eliquis) 5 mg PO BID 10/07/23 10/07/23 History furosemide 40 mg tablet 40 mg PO DAILY 10/07/23 10/07/23 History lisinopril 20 mg tablet 20 mg PO BID 10/07/23 10/07/23 History spironolactone 50 mg tablet 100 mg PO DAILY 10/07/23 10/07/23 History Patient History Social History Smoking Status: Former smoker Second Hand Exposure: No; Do You Dip or Chew Tobacco: No; Tobacco Cessation Education Requested by Patient: No Hx Alcohol Use: Yes Hx Substance Use: No Preferred Language: Setswana Communication Ability: Effective Senior Accounting Analyst Required: No Beliefs That Will Affect Care: None Current Living Situation: Spouse Other Information That Helps Us Care for You: No Feels Safe at Home: Yes Safety Concerns: Feels Safe At This Time Assistive Devices: Walker and Other Review of Systems Review of Systems: All systems reviewed & are unremarkable except as noted in HPI & below Physical Exam Physical Exam: The patient's sacrum was examined and the patient was noted to have some ulceration in the sacral area with some discolored/purplish and red skin. There is no purulent drainage from this area at the time of my exam. Constitutional: WD/WN, vitals as above Eyes: no conjunctival abnormality ENMT: Ears: no hearing impairment and no external ear abnormality Mouth: no oropharynx abnormality Neck: trachea midline Respiratory: normal respiratory effort; no respiratory distress and no labored breathing Cardiovascular: Rate/Rhythm: regular rate and regular rhythm Gastrointestinal (Abdomen): Abdomen is rotund with moderate distention. There is no pain noted with palpation and no rebound tenderness or guarding. Musculoskeletal: No calf tenderness Skin: no rashes Neurologic: Patient is able to follow simple commands and move all 4 extremities without noted focal deficits Psychiatric: A+Ox3, euthymic affect Results & Data Vital Signs (Past 12 Hours) Vital Signs Temp Pulse Pulse Resp BP BP Pulse Ox 10/08/23 01:49 64 22 104/64 97 10/08/23 01:49 10/08/23 01:46 63 10/08/23 00:54 10/07/23 23:15 64 26 H 96/64 L 99 10/07/23 22:48 60 24 122/77 97 10/07/23 22:39 60 21 122/74 95 10/07/23 22:18 71 23 91 10/07/23 22:06 63 21 115/70 98 10/07/23 21:53 65 10/07/23 21:36 62 15 116/72 99 10/07/23 20:48 64 21 106/65 97 10/07/23 20:39 64 25 H 106/66 98 10/07/23 20:33 62 17 112/64 10/07/23 20:18 65 15 104/63 98 10/07/23 19:48 60 20 86/53 L 97 10/07/23 19:39 58 L 20 93/55 L 96 10/07/23 19:30 66 20 87/50 L 96 10/07/23 19:21 58 L 19 91/59 L 88 L 10/07/23 19:17 59 L 16 91/59 L 94 10/07/23 18:51 63 19 99/62 L 91 10/07/23 18:30 92/54 L 10/07/23 18:30 61 23 97 10/07/23 18:21 60 24 95 10/07/23 18:20 92/56 L 10/07/23 18:12 61 23 97 10/07/23 18:10 73/51 L 10/07/23 18:06 60 22 97 10/07/23 18:03 60 17 98 10/07/23 17:57 81/52 L 10/07/23 17:51 68 24 98 10/07/23 17:49 64 10/07/23 17:47 93 10/07/23 17:45 65 23 10/07/23 17:41 67 16 10/07/23 17:41 98 10/07/23 17:41 36.8 C 64 16 72/50 L 98 10/07/23 17:40 72/50 L Pulse Ox O2 Del Method O2 Del Method 10/08/23 01:49 Room Air 10/08/23 01:49 Room Air 10/08/23 01:46 10/08/23 00:54 97 Room Air 10/07/23 23:15 Room Air 10/07/23 22:48 Room Air 10/07/23 22:39 Room Air 10/07/23 22:18 Room Air 10/07/23 22:06 Room Air 10/07/23 21:53 10/07/23 21:36 10/07/23 20:48 10/07/23 20:39 10/07/23 20:33 10/07/23 20:18 10/07/23 19:48 10/07/23 19:39 10/07/23 19:30 10/07/23 19:21 10/07/23 19:17 Room Air 10/07/23 18:51 10/07/23 18:30 10/07/23 18:30 10/07/23 18:21 10/07/23 18:20 10/07/23 18:12 10/07/23 18:10 10/07/23 18:06 10/07/23 18:03 10/07/23 17:57 10/07/23 17:51 10/07/23 17:49 10/07/23 17:47 Room Air 10/07/23 17:45 10/07/23 17:41 Room Air 10/07/23 17:41 Room Air 10/07/23 17:41 Room Air 10/07/23 17:40 PG Care Time/CCT Total # of Minutes Spent Total Time Spent with Patient: Total time spent is greater than 50% in coordination of care (as documented) at patient's floor/unit and/or counseling patient: Coding Level of Care Code 72878 INT INP/OBS CARE 3/75MIN Diagnoses Sacral wound S31.000A Ascites R18.8
[2023-10-08] MEDS: ALBUMIN 25% 25 GM/100 ML VIAL IV SCH (04:43)
[2023-10-08 05:52] LABS: Basophils # (auto) 0.04 K/uL (0.00-0.20); Basophils % (auto) 0.4 %; Hematocrit (blood only) 33.6 % (42.0-52.0); Immature Granulocytes # (auto) 0.04 K/uL (0.01-0.20); Immature Granulocytes % (auto) 0.4 %; Lymphocytes # (auto) 2.71 K/uL (1.20-3.40); Lymphocytes % (auto) 27.1 %; Mean Corpuscular Hgb Conc 32.7 g/dL (32.0-36.0); Mean Corpuscular Volume 91.6 fL (80.0-100.0); Mean Platelet Volume 11.4 fL (9.4-12.4); Monocytes # (auto) 0.65 K/uL (0.11-0.59); Monocytes % (auto) 6.5 %; Neutrophils # (auto) 6.35 K/uL (1.40-6.50); Neutrophils % (auto) 63.6 %; Platelet Count 134 K/uL (130-400); RDW Standard Deviation 60.4 fL (36.4-46.3); Red Blood Count 3.67 M/uL (4.70-6.10); White Blood Count 9.99 K/ul (4.8-10.8)
[2023-10-08 06:11] LABS: Albumin Globulin Ratio 1.1 (0.9-2); Albumin Level 3.3 gm/dl (3.4-5.0); BUN Creatinine Ratio 22.4 (10-20); Calcium 9.3 mg/dl (8.6-10.3); Creatinine Clr Calc Pharmacy 32.5 ml/min; Est GFR (African American) 28.8 ml/min; Est GFR (Non-African American) 24.9 ml/min; Potassium 4.3 mmol/L (3.5-5.1); Total Protein 6.3 gm/dl (6.0-8.3)
[2023-10-08 06:17] LABS: Troponin I High Sensitivity 24.8 pg/ml (0-20)
[2023-10-08 07:05] LABS: Estimated Average Glucose 128 mg/dl; Hemoglobin A1C 6.1 % (4.5-5.6)
[2023-10-08] MEDS: DOXYCYCLINE HYCLATE 100 MG CAP PO SCH (08:04)
[2023-10-08] MEDS: MIDODRINE HCL 2.5 MG TAB PO SCH (08:04)
[2023-10-08] MEDS: DOCUSATE SODIUM/SENNA 50/8.6MG TAB PO SCH (08:04)
[2023-10-08] MEDS: fentaNYL citrate PF 100 MCG/2 ML VIAL ONE (12:17)
[2023-10-08 12:24] LABS: Bilirubin,Total 2.4 mg/dl (0.2-1.0)
--- NOTE | 2023-10-08 12:30 | Gastrointestinal Consultation ---
Date of Consultation October 08, 2023 Assessment & Plan (1) Ascites: Patient is a 73 year old male admitted currently with sacral wound issues which he tells me is his main concern. He reports being told he had cirrhosis at outside facility but CT here shown normal liver. At this point, it is unclear if he truly has cirrhosis. - will await analysis of fluid. - continue protonix 40mg IV bid for reflux. - will discuss case further with Dr. Ellis, further recommendations to follow. Supervising Physician Co-Signing Physician Notes I saw and examined this patient with our nurse practitioner and agree with her assessment and plan. Etiology of loculated fluid is unclear. Fluid analysis not consistent with portal hypertension or liver disease. Very high white count and fluid concerning for infection or neoplasm. Await differential. I agree with drainage of fluid await further lab studies. History of Present Illness Reason for Consultation: cirrhosis, recurrent ascites Requesting Physician: Avril Torres MD Attending Physician: Avril Torres MD History of Present Illness Patient is a 73 year old male who presented to the emergency department on 10/07/23 at the recommendation of visiting nurses. Patient was noted to have a sacral wound that he tells me has been going on for weeks and he also had recent care at multiple hospitals in the [facility] however I do not have these records for review. The patient reports that approximately 3 weeks ago he underwent a paracentesis (this was his first) and he was told that he had underlying liver disease as well as fluid around his heart. He tells me that he had no prior history of liver issues. no family history of liver disease. he denies any excessive alcohol use. CT he had done during this admission shown a normal liver but Partially loculated fluid collection on the right side of the abdomen, measuring approximately 34.4 x 14.1 x 21.4 cm. This may represent ascites. He has been noticing some acid reflux. He tells me he moves his bowels daily to every other day. no blood in the stools or melena per patient. Patient denies any current issues with nausea, vomiting, dysphagia, abdominal pain, unintentional weight loss, change in bowels, melena, or bright red blood per rectum. Allergies Allergy/AdvReac Type Severity Reaction Status Date / Time Unknown allergen Allergy Hives Uncoded 10/07/23 20:24 Home Medications Medication Instructions Recorded Confirmed Type alfuzosin 10 mg tablet,extended 10 mg PO DAILY 10/07/23 10/07/23 History release 24 hr apixaban 5 mg tablet (Eliquis) 5 mg PO BID 10/07/23 10/07/23 History furosemide 40 mg tablet 40 mg PO DAILY 10/07/23 10/07/23 History lisinopril 20 mg tablet 20 mg PO BID 10/07/23 10/07/23 History spironolactone 50 mg tablet 100 mg PO DAILY 10/07/23 10/07/23 History Patient History Social History Smoking Status: Former smoker Second Hand Exposure: No; Do You Dip or Chew Tobacco: No; Tobacco Cessation Education Requested by Patient: No Hx Alcohol Use: Yes Hx Substance Use: No Preferred Language: Brazilian Communication Ability: Effective [place] Tender Required: No Beliefs That Will Affect Care: None Current Living Situation: Spouse Other Information That Helps Us Care for You: No Feels Safe at Home: Yes Safety Concerns: Feels Safe At This Time Assistive Devices: Walker and Other Review of Systems Review of Systems: All systems reviewed & are unremarkable except as noted in HPI & below Physical Exam Constitutional: WD/WN, vitals as above Respiratory: normal respiratory effort, lungs clear to auscultation Cardiovascular: Rate/Rhythm: regular rate and regular rhythm Gastrointestinal (Abdomen): normal bowel sounds, soft, nontender, no hepatosplenomegaly (he has drain placed in right side of abdomen, fluid draining.) Psychiatric: Orientation: alert and oriented x 3 Affect: euthymic affect Results & Data Vital Signs (Past 12 Hours) Vital Signs Temp Pulse Pulse Resp BP BP Pulse Ox 10/08/23 07:01 97.9 F 60 18 108/64 98 10/08/23 04:28 97.9 F 56 L 18 113/64 97 10/08/23 03:00 58 L 17 103/54 L 96 10/08/23 02:30 70 22 125/71 96 10/08/23 02:00 56 L 18 99/63 L 96 10/08/23 01:49 64 22 104/64 97 10/08/23 01:49 10/08/23 01:46 63 10/08/23 01:03 63 27 H 109/64 98 10/08/23 00:54 10/08/23 00:30 59 L 19 112/68 98 Pulse Ox O2 Del Method O2 Del Method 10/08/23 07:01 Room Air 10/08/23 04:28 Room Air 10/08/23 03:00 Room Air 10/08/23 02:30 Room Air 10/08/23 02:00 Room Air 10/08/23 01:49 Room Air 10/08/23 01:49 Room Air 10/08/23 01:46 10/08/23 01:03 Room Air 10/08/23 00:54 97 Room Air 10/08/23 00:30 Room Air Coding Level of Care Code 50536 INT INP/OBS CARE 2/55MIN Diagnoses Ascites R18.8
[2023-10-08] MEDS: PANTOprazole 40 MG in SYRINGE 0 ML IV SCH (13:27)
[2023-10-08 14:37] LABS: Albumin Peritoneal Fluid 2.3 gm/dl; Amylase Peritoneal Fluid < 10 U/L
[2023-10-08 14:42] LABS: Glucose Peritoneal Fluid 17 mg/dl; Lipase Peritoneal Fluid 7 U/L
--- NOTE | 2023-10-08 14:46 | CT Scan Report ---
CT-GUIDED RIGHT LOWER QUADRANT DRAIN PLACEMENT CLINICAL HISTORY: Right lower quadrant loculated fluid collection COMPARISON STUDY: Abdominal CT dated 09/30/2023. PROCEDURE: Procedure and risks were explained. Informed consent was obtained. A final timeout was com pleted. The patient was placed supine on the CT exam table. The right lower quadrant was prepped and draped in sterile fashion. 1% lidocaine was utilized for skin anesthesia. Utilizing CT guidance, an 18-gauge Chiba needle was advanced into the right lower quadrant fluid enrique ection. A 0.035 Amplatz wire was introduced through the entry needle and exchanged for a 10 Bulgarian lo cking pigtail catheter. Approximately 700 mL of brownish fluid was drained at the time of the procedu re with a small portion sent to lab for analysis. The pigtail catheter was sutured to skin with 3-0 p roline and placed to suction bag drainage. The patient tolerated the procedure well. Post CT imaging demonstrated adequate pigtail catheter positioning. Vital signs be monitored on the floor. IMPRESSION: Right lower quadrant abscess drain placement as above. Performed, dictated, and signed by Ramiro Trevino PA-C; to be co-signed by Dr. Nestor Mabry. Electronically signed by: Nestor Mabry M.D. 10/08/2023 4:45 PM
[2023-10-08 14:51] LABS: Appearance Peritoneal Fluid Cloudy; Color Peritoneal Fluid Yellow; RBC Peritoneal Fluid Auto 14000 /uL; WBC Peritoneal Fluid Auto 17670 /ul (0-300)
[2023-10-08 15:57] LABS: LDH Peritoneal Fluid 8854 U/L
[2023-10-08 16:12] LABS: Lymphocytes, Fluid 5 %; Mono,Macrophage,Mesothelial 2 %; Neutrophils, Fluid 93 %
--- NOTE | 2023-10-08 16:19 | Hospitalist Progress Note ---
Date of Service October 08, 2023 Assessment & Plan (1) Hypotension: Plan: Mr. Iniguez is a 73 yo gentleman with medical history significant for CHF, hypertension, Eliquis Rx for heart disease, questionable cirrhosis, DM2 on oral medications, BPH, left buttock wound, past tobacco abuse who is admitted for worsening sacral decubitus ulcer. Patient with peritoneal fluid collections however CT without signs of cirrhosis. IR consulted to drain collection which was consistent with infection. #Loculated right-sided peritoneal fluid collection, c/f abscess s/p peritoneal drain reports "paracentesis at the [facility] last month" No signs of liver disease on imaging at this time, nor is fluid c/w cirrhosis GI consulted -follow up fluid studies -Continue protonix IV bid continue zosyn hold spironolactone and lasix at this time doesn't meet sepsis criteria--afebrile, HR <90, wbc <12 ID consult #Decubitus ulcer, POA Surgery consulted--rotate q2h, no surgical intervention Wound care consult MRSA consult, doxy in interim for MRSA coverage given no sepsis #Hypotension #Chronic Heart failure with preserved EF #Pulm HTN, PASP 50-60 ECHO 10/07, mildly reduced RVSP, PASP elevated Started on Midodrine Will likely need lasix resumed after nephrology #Questionable YAHAIRA on likely CKD no clear baseline, presumed underlying CKD BUN elevated Hold lasix Consult nephrology avoid nephrotoxic agents Urine studies ordered #Left-sided chest pain with troponin elevation stable plateaued trop elevation, likely multifactorial low suscipion for ACS #Anemia secondary to LGIB (blood-streaked stools from constipation), unknown baseline No clear chronicity noted b12 and folate WNL, ferritin elevated, likely chronic iso renal disease Trend BMP continue IV ppi #Persistent A-fib ("heart disease as per patient" Rate controlled, noncompliant with eliquis Consider resumption of eliquis if Hgb stabilizes #DM2 on oral medications, HgbA1C 6.1% SSI #Possible deconditioning PT/OT ordered #past tobacco abuse encouraged continued cessation, no etoh use noted PT OT ordered DVT prophylaxis. SCDs for now DNR/DNI Admission and Anticipated Discharge Date Admission Date: October 07, 2023 Subjective NAEO Reports chest pain or other acute issues, notes that wound on buttock is painful He states he has progressively been weaker and hasn't followed up with his spinal stenosis in recent history He states that he isnt too sure what is wrong with his liver and he doesn't know if he has been seen by a GI physician recently Physical Exam Constitutional: WD/WN, vitals as above Respiratory: normal respiratory effort, lungs clear to auscultation Cardiovascular: irregularly irregular, rate controlled, Gastrointestinal (Abdomen): protuberant, nontender abdomen Results & Data Results & Data Vital Signs (Past 12 Hours) Vital Signs Temp Pulse Resp BP Pulse Ox O2 Del Method 10/08/23 15:35 36.5 C 54 L 18 109/63 98 Room Air 10/08/23 07:01 36.6 C 60 18 108/64 98 Room Air 10/08/23 04:28 36.6 C 56 L 18 113/64 97 Room Air Laboratory Results Short CBC 10/07/23 10/07/23 10/08/23 Range/Units 17:50 22:41 05:28 WBC 11.01 H 9.99 (4.8-10.8) K/ul Hgb 12.3 L 11.5 L 11.0 L (14.0-18.0) g/dl Hct 38.0 L 35.1 L 33.6 L (42.0-52.0) % Plt Count 174 134 (130-400) K/uL BMP 10/07/23 10/08/23 17:50 05:28 Sodium 134 L 134 L Potassium 4.2 4.3 Chloride 98 100 Carbon Dioxide 27 27 BUN 57 H 55 H Creatinine 2.52 H 2.46 H Glucose 145 H 117 H Calcium 9.4 9.3 Cardiac Enzymes 10/08/23 Range/Units 11:20 Total Creatine Kinase 21 L (30-223) U/L Liver Function 10/07/23 10/08/23 10/08/23 Range/Units 17:50 05:28 11:20 Total Bilirubin 1.7 H 2.0 H 2.4 H (0.2-1.0) mg/dl Direct Bilirubin 0.7 H (0-0.2) mg/dl AST 16 14 (13-39) U/L ALT 10 8 (7-52) U/L Alkaline Phosphatase 117 H 83 (34-104) U/L Albumin 3.1 L 3.3 L (3.4-5.0) gm/dl Urine 10/07/23 Range/Units 20:04 Urine Color Yellow Urine Appearance Clear (Clear) Urine pH 5.5 (4.5-7.5) Ur Specific Hamilton 1.014 (1.000-1.030) Urine Protein Trace H (Negative) Urine Glucose (UA) Negative (Negative) Medications Administered Home Medications Medication Instructions Recorded Confirmed Last Taken alfuzosin 10 mg tablet,extended 10 mg PO DAILY 10/07/23 10/07/23 Unknown release 24 hr apixaban 5 mg tablet (Eliquis) 5 mg PO BID 10/07/23 10/07/23 10/07/23 09:00 furosemide 40 mg tablet 40 mg PO DAILY 10/07/23 10/07/23 Unknown lisinopril 20 mg tablet 20 mg PO BID 10/07/23 10/07/23 Unknown spironolactone 50 mg tablet 100 mg PO DAILY 10/07/23 10/07/23 Unknown Active Medications Generic Name Dose Route Start Last Admin Trade Name Freq PRN Reason Stop Dose Admin Doxycycline Hyclate 100 mg 10/08/23 09:00 10/08/23 08:04 Doxycycline Hyclate 100 Mg Cap PO 10/15/23 08:59 100 mg BID ROYAL Administration Piperacillin Sod/Tazobactam Sod 4.5 gm in 100 mls @ 25 mls/hr 10/08/23 02:00 10/08/23 13:28 Zosyn IV 10/18/23 01:59 Infused Q8H ROYAL Infusion Albumin Human 25 gm in 100 mls @ 50 mls/hr 10/08/23 04:00 10/08/23 13:27 Albumin 25% IV 10/11/23 03:59 50 mls/hr Q8H ROYAL Administration Pantoprazole Sodium 40 mg/ 10 mls @ 5 mls/min 10/08/23 10:00 10/08/23 13:27 Syringe IV 11/07/23 09:59 5 mls/min BID ROYAL Administration Midodrine 2.5 mg 10/08/23 08:00 10/08/23 13:27 Midodrine Hcl 2.5 Mg Tab PO 11/07/23 07:59 2.5 mg TID@0800,1200,1700 ROYAL Administration Senna/Docusate Sodium 1 tab 10/08/23 09:00 10/08/23 08:04 Docusate Sodium/Senna 50/8.6mg Tab PO 11/07/23 08:59 1 tab QAM ROYAL Administration (1) Hypotension Hypotension type: unspecified hypotension type Qualified Code(s): I95.9 - Hypotension, unspecified
[2023-10-08] MEDS: CALCIUM CARBONATE 500 MG CHEWABLE TAB PO PRN (18:27)
[2023-10-08 19:20] LABS: Urine Potassium 30.2 mmol/L
[2023-10-09 07:23] LABS: Hematocrit (blood only) 31.5 % (42.0-52.0); Hemoglobin 10.7 g/dl (14.0-18.0); Mean Corpuscular Hemoglobin 30.5 pg (25.0-34.0); Mean Corpuscular Volume 89.7 fL (80.0-100.0); Mean Platelet Volume 11.3 fL (9.4-12.4); Platelet Count 132 K/uL (130-400); RDW Coefficient of Variation 18.1 % (11.5-14.5); RDW Standard Deviation 59.7 fL (36.4-46.3); Red Blood Count 3.51 M/uL (4.70-6.10); White Blood Count 8.29 K/ul (4.8-10.8)
[2023-10-09 07:59] LABS: Albumin Globulin Ratio 1.4 (0.9-2); Albumin Level 3.8 gm/dl (3.4-5.0); Bilirubin,Total 2.2 mg/dl (0.2-1.0); Calcium 9.4 mg/dl (8.6-10.3); Est GFR (African American) 35.1 ml/min; Est GFR (Non-African American) 30.3 ml/min; Globulin 2.7 gm/dl (2.5-4.0); Magnesium 1.9 mg/dl (1.7-2.4); Phosphorus 3.1 mg/dl (2.5-4.9); Potassium 4.1 mmol/L (3.5-5.1); Total Protein 6.5 gm/dl (6.0-8.3)
--- NOTE | 2023-10-09 08:36 | Hospitalist Progress Note ---
Date of Service October 09, 2023 Assessment & Plan (1) Hypotension: Plan: Mr. Iniguez is a 73 yo gentleman with medical history significant for CHF, hypertension, Eliquis Rx for heart disease, questionable cirrhosis, DM2 on oral medications, BPH, left buttock wound, past tobacco abuse who is admitted for worsening sacral decubitus ulcer. Patient with peritoneal fluid collections however CT without signs of cirrhosis. IR consulted to drain collection which was consistent with infection with drain placed on 10/07. Review of imaging reveals low suspicion of cirrhosis. #Loculated right-sided peritoneal fluid collection, c/f abscess s/p peritoneal drain reports "paracentesis at the [facility] last month" No signs of liver disease on imaging at this time, nor is fluid c/w cirrhosis GI consulted -follow up fluid studies -Continue protonix IV bid continue zosyn hold spironolactone and lasix at this time doesn't meet sepsis criteria--afebrile, HR <90, wbc <12 ID consult #MRSA + #Decubitus ulcer, POA Surgery consulted--rotate q2h Wound care consult MRSA + Given depth of ulcer/wound, will transition to Daptomycin NPO midnight for debridment #Hypotension #Chronic Heart failure with preserved EF #Pulm HTN, PASP 50-60 ECHO 10/07, mildly reduced RVSP, PASP elevated Continue Midodrine Will likely need lasix resumed eventually #YAHAIRA on likely CKD no clear baseline, presumed underlying CKD BUN elevated Hold lasix Consult nephrology, reviewed recommendations -Avoid hypotension -Hold lasix/spironolactone avoid nephrotoxic agents repeat bmp #Left-sided chest pain with troponin elevation stable plateaued trop elevation, likely multifactorial low suscipion for ACS #Anemia secondary to LGIB (blood-streaked stools from constipation), unknown baseline No clear chronicity noted b12 and folate WNL, ferritin elevated, likely chronic iso renal disease Trend BMP continue IV ppi #Persistent A-fib ("heart disease as per patient" Rate controlled, noncompliant with eliquis Consider resumption of eliquis if Hgb stabilizes #DM2 on oral medications, HgbA1C 6.1% SSI #Possible deconditioning PT/OT ordered #past tobacco abuse encouraged continued cessation, no etoh use noted PT OT ordered DVT prophylaxis. SCDs for now DNR/DNI Admission and Anticipated Discharge Date Admission Date: October 07, 2023 Subjective CATARINA Reports discomfort on abdomen, but please with drainage States he feels better and denies new concerns--does note that his wound on his buttock is bothersome Physical Exam Constitutional: WD/WN, vitals as above Respiratory: normal respiratory effort, lungs clear to auscultation Cardiovascular: RRR, no murmur, no edema Gastrointestinal (Abdomen): normal bowel sounds, soft, nontender, no hepatosp lenomegaly Skin: evaluated wound at bedside, tracks deep with foul odor, thick tissue that requires debridement, and surround fungal infection Results & Data Results & Data Vital Signs (Past 12 Hours) Vital Signs Temp Pulse Pulse Resp BP Pulse Ox O2 Del Method 10/09/23 07:45 36.3 C L 49 L 18 108/63 97 Room Air 10/09/23 03:16 36.7 C 55 L 18 112/58 L 95 Room Air 10/08/23 23:24 36.7 C 56 L 18 95/54 L 97 Room Air 10/08/23 22:00 54 L Laboratory Results Short CBC 10/09/23 Range/Units 06:53 WBC 8.29 (4.8-10.8) K/ul Hgb 10.7 L (14.0-18.0) g/dl Hct 31.5 L (42.0-52.0) % Plt Count 132 (130-400) K/uL BMP 10/09/23 06:53 Sodium 137 Potassium 4.1 Chloride 103 Carbon Dioxide 26 BUN 46 H Creatinine 2.09 H D Glucose 108 H Calcium 9.4 Liver Function 10/09/23 Range/Units 06:53 Total Bilirubin 2.2 H (0.2-1.0) mg/dl AST 10 L (13-39) U/L ALT 6 L (7-52) U/L Alkaline Phosphatase 71 (34-104) U/L Albumin 3.8 (3.4-5.0) gm/dl Medications Administered Home Medications Medication Instructions Recorded Confirmed Last Taken alfuzosin 10 mg tablet,extended 10 mg PO DAILY 10/07/23 10/07/23 Unknown release 24 hr apixaban 5 mg tablet (Eliquis) 5 mg PO BID 10/07/23 10/07/23 10/07/23 09:00 furosemide 40 mg tablet 40 mg PO DAILY 10/07/23 10/07/23 Unknown lisinopril 20 mg tablet 20 mg PO BID 10/07/23 10/07/23 Unknown spironolactone 50 mg tablet 100 mg PO DAILY 10/07/23 10/07/23 Unknown Active Medications Generic Name Dose Route Start Last Admin Trade Name Ashley PRN Reason Stop Dose Admin Calcium Carbonate 1,500 mg 10/08/23 17:53 10/09/23 07:46 Calcium Carbonate 500 Mg Chewable Tab PO 11/07/23 17:52 1,500 mg Q4H PRN Administration Indigestion Piperacillin Sod/Tazobactam Sod 4.5 gm in 100 mls @ 25 mls/hr 10/08/23 02:00 10/09/23 14:59 Zosyn IV 10/18/23 01:59 Infused Q8H ROYAL Infusion Albumin Human 25 gm in 100 mls @ 50 mls/hr 10/08/23 04:00 10/09/23 14:59 Albumin 25% IV 10/11/23 03:59 Infused Q8H ROYAL Infusion Pantoprazole Sodium 40 mg/ 10 mls @ 5 mls/min 10/08/23 10:00 10/09/23 09:45 Syringe IV 11/07/23 09:59 5 mls/min BID ROYAL Administration Daptomycin 350 mg/ Syringe 7 mls @ 3.5 mls/min 10/09/23 11:00 10/09/23 12:45 IV 10/16/23 10:59 3.5 mls/min Q24H ROYAL Administration Protocol Insulin Aspart 0 units 10/08/23 16:15 10/09/23 16:51 Insulin Aspart Per Unit Charge SC 11/07/23 16:14 3 units ACHS ROYAL Administration Midodrine 2.5 mg 10/08/23 08:00 10/09/23 16:53 Midodrine Hcl 2.5 Mg Tab PO 11/07/23 07:59 2.5 mg TID@0800,1200,1700 ROYAL Administration Nystatin 1 appln 10/09/23 14:00 10/09/23 14:57 Nystatin Powder 15gm Btl EXT 11/08/23 13:59 1 appln TID ROYAL Administration Oxycodone HCl 5 mg 10/07/23 21:58 10/09/23 12:46 Oxycodone Hcl Ir 5 Mg Tab (Immediate Release) PO 10/21/23 21:57 5 mg Q4H PRN Administration Pain Senna/Docusate Sodium 1 tab 10/08/23 09:00 10/09/23 10:20 Docusate Sodium/Senna 50/8.6mg Tab PO 11/07/23 08:59 Not Given QAM ROYAL (1) Hypotension Hypotension type: unspecified hypotension type Qualified Code(s): I95.9 - Hypotension, unspecified
--- NOTE | 2023-10-09 09:52 | Gastroenterology Progress Note ---
Date of Service October 09, 2023 Assessment & Plan (1) Ascites: Plan: Would await the pending cultures on ascitic fluid. continue with zosyn. continue with protonix 40mg bid. Admission and Anticipated Discharge Date Admission Date: October 07, 2023 Supervising Physician Co-Signing Physician Notes I saw and examined this patient with our nurse practitioner and agree with her assessment and plan. Fluid analysis from his intra-abdominal collection is consistent with an abscess. Etiology is unclear however it is possible it was iatrogenic from recent intervention. Imaging does not demonstrate a source for this collection GI tract integrity appears intact. Agree with antibiotic coverage and percutaneous drainage evaluate for sensitivities of the cultures. Recommend getting a repeat CT scan on Friday to assess the status of the collection and would consult infectious disease for their input. Subjective Patient tells me that he does not feel well. He still has pain related to his sacral wound. no abdominal pain. cultures on ascites is still pending. drain now is draining some bloody fluid. SAAG 1.0. concern for infection. he is on zosyn. rest of GI ros unremarkable. Review of Systems Review of Systems: All systems reviewed & are unremarkable except as noted in HPI & below Physical Exam Constitutional: WD/WN, vitals as above Respiratory: normal respiratory effort, lungs clear to auscultation Cardiovascular: Rate/Rhythm: regular rate and regular rhythm Gastrointestinal (Abdomen): normal bowel sounds, soft, nontender, no hepatosplenomegaly drain in right abdomen. Psychiatric: Orientation: alert and oriented x 3 Results & Data Results & Data Vital Signs (Past 12 Hours) Vital Signs Temp Pulse Pulse Resp BP Pulse Ox O2 Del Method 10/09/23 07:45 97.3 F L 49 L 18 108/63 97 Room Air 10/09/23 03:16 98.1 F 55 L 18 112/58 L 95 Room Air 10/08/23 23:24 98.1 F 56 L 18 95/54 L 97 Room Air 10/08/23 22:00 54 L Laboratory Results Laboratory Results - last 48 hr 10/07/23 10/07/23 10/07/23 17:50 18:00 19:53 WBC 11.01 H RBC 4.12 L Hgb 12.3 L POC Hgb 12.2 L Hct 38.0 L POC Hct 36 L MCV 92.2 MCH 29.9 MCHC 32.4 RDW Std Deviation 60.3 H RDW Coeff of Ramu 17.7 H Plt Count 174 MPV 11.4 Immature Gran % (Auto) 0.5 Neut % (Auto) 69.0 Lymph % (Auto) 22.7 Teller % (Auto) 6.2 Eos % (Auto) 1.1 Baso % (Auto) 0.5 Reticulocyte % (Auto) Neut # (Auto) 7.60 H Lymph # (Auto) 2.50 Teller # (Auto) 0.68 H Eos # (Auto) 0.12 Baso # (Auto) 0.05 Reticulocyte # Immature Gran # (Auto) 0.06 APTT PTT Ratio VBG pH 7.38 VBG pCO2 45 VBG pO2 26 VBG HCO3 27 VBG O2 Saturation < 60.0 VBG Base Excess 1.0 POC Sodium 135 Sodium 134 L POC Potassium 4.2 Potassium 4.2 POC Chloride 97 L Chloride 98 Carbon Dioxide 27 POC Total CO2 24 Anion Gap 9 POC Anion Gap 20.0 POC BUN 49 H BUN 57 H Creatinine 2.52 H POC Creatinine 2.7 H Est Cr Clr Drug Dosing 31.7 Est GFR ( Amer) 28.0 Est GFR (Non-Af Amer) 24.1 BUN/Creatinine Ratio 22.6 H Glucose 145 H POC Glucose POC Glucose (other) 140 H Estimat Average Glucose Hemoglobin A1c Lactate 2.8 H* 3.1 H* Calcium 9.4 POC Ioniz Calcium Rajendra 1.26 Phosphorus Magnesium 1.9 Iron Transferrin Ferritin Total Bilirubin 1.7 H Direct Bilirubin 0.7 H AST 16 ALT 10 Alkaline Phosphatase 117 H Total Creatine Kinase Troponin I High Sens 26.4 H 23.8 H Total Protein 7.0 Albumin 3.1 L Globulin Albumin/Globulin Ratio Lipase Vitamin B12 Folate Procalcitonin 0.23 Urine Color Urine Appearance Urine pH Ur Specific Hil[place] Urine Protein Urine Glucose (UA) Urine Ketones Urine Blood Urine Nitrite Urine Bilirubin Urine Urobilinogen Ur Leukocyte Esterase Urine WBC (Auto) Urine RBC (Auto) U Hyaline Cast (Auto) U Epithel Cells (Auto) Urine Bacteria (Auto) Hyaline Casts Urine Mucus Urine Sodium Urine Potassium Urine Chloride Fluid Neutrophils % Fluid Lymphocytes % Fluid Meso/Macro/Teller % Fluid Comment Peritoneal Color Peritoneal Appearance Peritoneal WBC (Auto) Peritoneal RBC (Auto) Peritoneal Tot Protein Peritoneal Albumin Peritoneal LDH Peritoneal Glucose Peritoneal Amylase Peritoneal Lipase Nasal Screen MRSA (PCR) Blood Type Antibody Screen 10/07/23 10/07/23 10/08/23 20:04 22:41 02:38 WBC RBC Hgb 11.5 L POC Hgb Hct 35.1 L POC Hct MCV MCH MCHC RDW Std Deviation RDW Coeff of Ramu Plt Count MPV Immature Gran % (Auto) Neut % (Auto) Lymph % (Auto) Teller % (Auto) Eos % (Auto) Baso % (Auto) Reticulocyte % (Auto) 2.07 H Neut # (Auto) Lymph # (Auto) Teller # (Auto) Eos # (Auto) Baso # (Auto) Reticulocyte # 0.080 Immature Gran # (Auto) APTT 29 PTT Ratio 1.1 VBG pH VBG pCO2 VBG pO2 VBG HCO3 VBG O2 Saturation VBG Base Excess POC Sodium Sodium POC Potassium Potassium POC Chloride Chloride Carbon Dioxide POC Total CO2 Anion Gap POC Anion Gap POC BUN BUN Creatinine POC Creatinine Est Cr Clr Drug Dosing Est GFR ( Amer) Est GFR (Non-Af Amer) BUN/Creatinine Ratio Glucose POC Glucose 125 H POC Glucose (other) Estimat Average Glucose Hemoglobin A1c Lactate 2.6 H* Calcium POC Ioniz Calcium Rajendra Phosphorus Magnesium Iron 46 Transferrin 156 L Ferritin 714.0 H Total Bilirubin Direct Bilirubin AST ALT Alkaline Phosphatase Total Creatine Kinase Troponin I High Sens 23.9 H Total Protein Albumin Globulin Albumin/Globulin Ratio Lipase 34 Vitamin B12 690 Folate 12.45 Procalcitonin Urine Color Yellow Urine Appearance Clear Urine pH 5.5 Ur Specific [place] 1.014 Urine Protein Trace H Urine Glucose (UA) Negative Urine Ketones Negative Urine Blood Trace H Urine Nitrite Negative Urine Bilirubin Negative Urine Urobilinogen Negative Ur Leukocyte Esterase 2+ H Urine WBC (Auto) 11-20 H Urine RBC (Auto) 0-2 U Hyaline Cast (Auto) >20 H U Epithel Cells (Auto) 0-2 Urine Bacteria (Auto) None Seen Hyaline Casts Present A Urine Mucus Present A Urine Sodium Urine Potassium Urine Chloride Fluid Neutrophils % Fluid Lymphocytes % Fluid Meso/Macro/Teller % Fluid Comment Peritoneal Color Peritoneal Appearance Peritoneal WBC (Auto) Peritoneal RBC (Auto) Peritoneal Tot Protein Peritoneal Albumin Peritoneal LDH Peritoneal Glucose Peritoneal Amylase Peritoneal Lipase Nasal Screen MRSA (PCR) Blood Type O Positive Antibody Screen NEGATIVE 10/08/23 10/08/23 10/08/23 05:28 08:38 11:20 WBC 9.99 RBC 3.67 L Hgb 11.0 L POC Hgb Hct 33.6 L POC Hct MCV 91.6 MCH 30.0 MCHC 32.7 RDW Std Deviation 60.4 H RDW Coeff of Ramu 18.0 H Plt Count 134 MPV 11.4 Immature Gran % (Auto) 0.4 Neut % (Auto) 63.6 Lymph % (Auto) 27.1 Teller % (Auto) 6.5 Eos % (Auto) 2.0 Baso % (Auto) 0.4 Reticulocyte % (Auto) Neut # (Auto) 6.35 Lymph # (Auto) 2.71 Teller # (Auto) 0.65 H Eos # (Auto) 0.20 Baso # (Auto) 0.04 Reticulocyte # Immature Gran # (Auto) 0.04 APTT PTT Ratio VBG pH VBG pCO2 VBG pO2 VBG HCO3 VBG O2 Saturation VBG Base Excess POC Sodium Sodium 134 L POC Potassium Potassium 4.3 POC Chloride Chloride 100 Carbon Dioxide 27 POC Total CO2 Anion Gap 7 POC Anion Gap POC BUN BUN 55 H Creatinine 2.46 H POC Creatinine Est Cr Clr Drug Dosing 32.5 Est GFR ( Amer) 28.8 Est GFR (Non-Af Amer) 24.9 BUN/Creatinine Ratio 22.4 H Glucose 117 H POC Glucose 109 H POC Glucose (other) Estimat Average Glucose 128 Hemoglobin A1c 6.1 H Lactate 2.0 Calcium 9.3 POC Ioniz Calcium Rajendra Phosphorus Magnesium Iron Transferrin Ferritin Total Bilirubin 2.0 H 2.4 H Direct Bilirubin AST 14 ALT 8 Alkaline Phosphatase 83 Total Creatine Kinase 21 L Troponin I High Sens 24.8 H Total Protein 6.3 Albumin 3.3 L Globulin 3.0 Albumin/Globulin Ratio 1.1 Lipase Vitamin B12 Folate Procalcitonin Urine Color Urine Appearance Urine pH Ur Specific [place] Urine Protein Urine Glucose (UA) Urine Ketones Urine Blood Urine Nitrite Urine Bilirubin Urine Urobilinogen Ur Leukocyte Esterase Urine WBC (Auto) Urine RBC (Auto) U Hyaline Cast (Auto) U Epithel Cells (Auto) Urine Bacteria (Auto) Hyaline Casts Urine Mucus Urine Sodium Urine Potassium Urine Chloride Fluid Neutrophils % Fluid Lymphocytes % Fluid Meso/Macro/Teller % Fluid Comment Peritoneal Color Peritoneal Appearance Peritoneal WBC (Auto) Peritoneal RBC (Auto) Peritoneal Tot Protein Peritoneal Albumin Peritoneal LDH Peritoneal Glucose Peritoneal Amylase Peritoneal Lipase Nasal Screen MRSA (PCR) Blood Type Antibody Screen 10/08/23 10/08/23 10/08/23 11:45 16:30 18:49 WBC RBC Hgb POC Hgb Hct POC Hct MCV MCH MCHC RDW Std Deviation RDW Coeff of Ramu Plt Count MPV Immature Gran % (Auto) Neut % (Auto) Lymph % (Auto) Teller % (Auto) Eos % (Auto) Baso % (Auto) Reticulocyte % (Auto) Neut # (Auto) Lymph # (Auto) Teller # (Auto) Eos # (Auto) Baso # (Auto) Reticulocyte # Immature Gran # (Auto) APTT PTT Ratio VBG pH VBG pCO2 VBG pO2 VBG HCO3 VBG O2 Saturation VBG Base Excess POC Sodium Sodium POC Potassium Potassium POC Chloride Chloride Carbon Dioxide POC Total CO2 Anion Gap POC Anion Gap POC BUN BUN Creatinine POC Creatinine Est Cr Clr Drug Dosing Est GFR ( Amer) Est GFR (Non-Af Amer) BUN/Creatinine Ratio Glucose POC Glucose 167 H POC Glucose (other) Estimat Average Glucose Hemoglobin A1c Lactate Calcium POC Ioniz Calcium Rajendra Phosphorus Magnesium Iron Transferrin Ferritin Total Bilirubin Direct Bilirubin AST ALT Alkaline Phosphatase Total Creatine Kinase Troponin I High Sens Total Protein Albumin Globulin Albumin/Globulin Ratio Lipase Vitamin B12 Folate Procalcitonin Urine Color Urine Appearance Urine pH Ur Specific [place] Urine Protein Urine Glucose (UA) Urine Ketones Urine Blood Urine Nitrite Urine Bilirubin Urine Urobilinogen Ur Leukocyte Esterase Urine WBC (Auto) Urine RBC (Auto) U Hyaline Cast (Auto) U Epithel Cells (Auto) Urine Bacteria (Auto) Hyaline Casts Urine Mucus Urine Sodium 77 Urine Potassium 30.2 Urine Chloride 53 Fluid Neutrophils % 93 Fluid Lymphocytes % 5 Fluid Meso/Macro/Teller % 2 Fluid Comment Peritoneal Color Yellow Peritoneal Appearance Cloudy Peritoneal WBC (Auto) 40742 H Peritoneal RBC (Auto) 27136 Peritoneal Tot Protein 4.0 Peritoneal Albumin 2.3 Peritoneal LDH 8854 Peritoneal Glucose 17 Peritoneal Amylase < 10 Peritoneal Lipase 7 Nasal Screen MRSA (PCR) Blood Type Antibody Screen 10/08/23 10/09/23 10/09/23 20:14 05:30 06:53 WBC 8.29 RBC 3.51 L Hgb 10.7 L POC Hgb Hct 31.5 L POC Hct MCV 89.7 MCH 30.5 MCHC 34.0 RDW Std Deviation 59.7 H RDW Coeff of Ramu 18.1 H Plt Count 132 MPV 11.3 Immature Gran % (Auto) Neut % (Auto) Lymph % (Auto) Teller % (Auto) Eos % (Auto) Baso % (Auto) Reticulocyte % (Auto) Neut # (Auto) Lymph # (Auto) Teller # (Auto) Eos # (Auto) Baso # (Auto) Reticulocyte # Immature Gran # (Auto) APTT PTT Ratio VBG pH VBG pCO2 VBG pO2 VBG HCO3 VBG O2 Saturation VBG Base Excess POC Sodium Sodium 137 POC Potassium Potassium 4.1 POC Chloride Chloride 103 Carbon Dioxide 26 POC Total CO2 Anion Gap 8 POC Anion Gap POC BUN BUN 46 H Creatinine 2.09 H D POC Creatinine Est Cr Clr Drug Dosing 37.0 Est GFR ( Amer) 35.1 Est GFR (Non-Af Amer) 30.3 BUN/Creatinine Ratio 22.0 H Glucose 108 H POC Glucose 206 H POC Glucose (other) Estimat Average Glucose Hemoglobin A1c Lactate Calcium 9.4 POC Ioniz Calcium Rajendra Phosphorus 3.1 Magnesium 1.9 Iron Transferrin Ferritin Total Bilirubin 2.2 H Direct Bilirubin AST 10 L ALT 6 L Alkaline Phosphatase 71 Total Creatine Kinase Troponin I High Sens Total Protein 6.5 Albumin 3.8 Globulin 2.7 Albumin/Globulin Ratio 1.4 Lipase Vitamin B12 Folate Procalcitonin Urine Color Urine Appearance Urine pH Ur Specific [place] Urine Protein Urine Glucose (UA) Urine Ketones Urine Blood Urine Nitrite Urine Bilirubin Urine Urobilinogen Ur Leukocyte Esterase Urine WBC (Auto) Urine RBC (Auto) U Hyaline Cast (Auto) U Epithel Cells (Auto) Urine Bacteria (Auto) Hyaline Casts Urine Mucus Urine Sodium Urine Potassium Urine Chloride Fluid Neutrophils % Fluid Lymphocytes % Fluid Meso/Macro/Teller % Fluid Comment Peritoneal Color Peritoneal Appearance Peritoneal WBC (Auto) Peritoneal RBC (Auto) Peritoneal Tot Protein Peritoneal Albumin Peritoneal LDH Peritoneal Glucose Peritoneal Amylase Peritoneal Lipase Nasal Screen MRSA (PCR) Negative Blood Type Antibody Screen 10/09/23 10/09/23 07:07 11:44 WBC RBC Hgb POC Hgb Hct POC Hct MCV MCH MCHC RDW Std Deviation RDW Coeff of Ramu Plt Count MPV Immature Gran % (Auto) Neut % (Auto) Lymph % (Auto) Teller % (Auto) Eos % (Auto) Baso % (Auto) Reticulocyte % (Auto) Neut # (Auto) Lymph # (Auto) Teller # (Auto) Eos # (Auto) Baso # (Auto) Reticulocyte # Immature Gran # (Auto) APTT PTT Ratio VBG pH VBG pCO2 VBG pO2 VBG HCO3 VBG O2 Saturation VBG Base Excess POC Sodium Sodium POC Potassium Potassium POC Chloride Chloride Carbon Dioxide POC Total CO2 Anion Gap POC Anion Gap POC BUN BUN Creatinine POC Creatinine Est Cr Clr Drug Dosing Est GFR ( Amer) Est GFR (Non-Af Amer) BUN/Creatinine Ratio Glucose POC Glucose 123 H 184 H POC Glucose (other) Estimat Average Glucose Hemoglobin A1c Lactate Calcium POC Ioniz Calcium Rajendra Phosphorus Magnesium Iron Transferrin Ferritin Total Bilirubin Direct Bilirubin AST ALT Alkaline Phosphatase Total Creatine Kinase Troponin I High Sens Total Protein Albumin Globulin Albumin/Globulin Ratio Lipase Vitamin B12 Folate Procalcitonin Urine Color Urine Appearance Urine pH Ur Specific [place] Urine Protein Urine Glucose (UA) Urine Ketones Urine Blood Urine Nitrite Urine Bilirubin Urine Urobilinogen Ur Leukocyte Esterase Urine WBC (Auto) Urine RBC (Auto) U Hyaline Cast (Auto) U Epithel Cells (Auto) Urine Bacteria (Auto) Hyaline Casts Urine Mucus Urine Sodium Urine Potassium Urine Chloride Fluid Neutrophils % Fluid Lymphocytes % Fluid Meso/Macro/Teller % Fluid Comment Peritoneal Color Peritoneal Appearance Peritoneal WBC (Auto) Peritoneal RBC (Auto) Peritoneal Tot Protein Peritoneal Albumin Peritoneal LDH Peritoneal Glucose Peritoneal Amylase Peritoneal Lipase Nasal Screen MRSA (PCR) Blood Type Antibody Screen Coding Level of Care Code 38404 SUB INP/OBS CARE 03/06MIN Diagnoses Ascites R18.8
[2023-10-09] MEDS: DAPTOmycin 350 MG in SYRINGE 0 ML IV SCH (12:45)
[2023-10-09] MEDS: oxyCODONE HCL IR 5 MG TAB (IMMEDIATE RELEASE) PO PRN (12:46)
--- NOTE | 2023-10-09 13:15 | Nephrology Consultation ---
Date of Consultation October 09, 2023 Assessment & Plan (1) YAHAIRA (acute kidney injury): on admission creatinine was 2.52 and it is trending down and is down to 2.0 today. Almost certainly the initial acute kidney injury was related with profound hypotension he had with blood pressure in the 70s. Blood pressure is much better after IV fluid and midodrine and as a result we are seeing very kidney function. agree with holding Lasix and spironolactone. Continue albumin. renally adjust the dose of antibiotics strict input output charting avoid hypotension avoid contrast agent and NSAIDs. given improving renal function no need for further workup for the etiology of acute kidney injury. Obstructive uropathy is already ruled out on the CT scan. He does have nonobstructive kidney stone and renal cyst which can be addressed as an outpatient if patient desires. (2) CKD (chronic kidney disease): based on his comorbid disease profile with long-term diabetes congestive heart failure he most likely has some degree of CKD although I do not know his recent baseline creatinine (3) Ascites: currently has a catheter and is draining (4) Sacral wound: he has been mostly bed-bound for many months now and as a result has a sacral wound in his buttock. He is getting antibiotics for this daptomycin and IV Zosyn. continue same Plan time spent 65 mins. History of Present Illness Reason for Consultation: acute kidney injury Attending Physician: Avril Torres MD History of Present Illness 73-year-old male who normally gets healthcare through [facility]. I do not know his baseline kidney function and according to the patient he is not aware of any kidney dysfunction in the past although he does have history of diabetes hypertension history of congestive heart failure, Eliquis Rx for heart disease, ???cirrhosis, BPH, left buttock wound. Recent Admission at [facility] last month for abdominal distention and leg swelling attributed to heart issues as per patient. Patient was also told he had heart and liver disease. he had abdominal paracentesis while there. Discharged to [facility] which include blood pressure medicines and a blood thinner. Patient left [facility] AGAINST MEDICAL ADVICE because he was not happy with the care. he has become progressively weaker since leaving [facility]. Increased abdominal distention with right sided discomfort. Worsening left buttock wound pain. on the day of admission he had severe weakness and lightheadedness and was noted to have very low blood pressure by the EMS and upon arrival to the emergency department his blood pressure was only 70s systolic. since being admitted he has been given IV fluid as well as antibiotics and midodrine. with that blood pressure is now better creatinine on admission was 2.5 and dropped slightly yesterday to 2.4 and today is even lower at 2.0. He is making urine and overall feels stronger. CT abdomen did not show cirrhosis and this hospital. No hydronephrosis noted but he did have nonobstructive kidney stone as well as renal cyst. he currently has catheter for drainage of ascites. currently getting an tibiotics for decubitus ulcer in his buttock area review of systems as detailed in HPI unless stated otherwise 12 systems reviewed and negative physical examination: Allergies Allergy/AdvReac Type Severity Reaction Status Date / Time Unknown allergen Allergy Hives Uncoded 10/07/23 20:24 Home Medications Medication Instructions Recorded Confirmed Type alfuzosin 10 mg tablet,extended 10 mg PO DAILY 10/07/23 10/07/23 History release 24 hr apixaban 5 mg tablet (Eliquis) 5 mg PO BID 10/07/23 10/07/23 History furosemide 40 mg tablet 40 mg PO DAILY 10/07/23 10/07/23 History lisinopril 20 mg tablet 20 mg PO BID 10/07/23 10/07/23 History spironolactone 50 mg tablet 100 mg PO DAILY 10/07/23 10/07/23 History Patient History Social History Smoking Status: Former smoker Second Hand Exposure: No; Do You Dip or Chew Tobacco: No; Tobacco Cessation Education Requested by Patient: No Hx Alcohol Use: Yes Hx Substance Use: No Preferred Language: French Communication Ability: Effective Traffic Control Supervisor Required: No Beliefs That Will Affect Care: None Current Living Situation: Spouse Other Information That Helps Us Care for You: No Feels Safe at Home: Yes Safety Concerns: Feels Safe At This Time Assistive Devices: Walker and Other Results & Data Vital Signs (Past 12 Hours) Vital Signs Temp Pulse Resp BP Pulse Ox O2 Del Method 10/09/23 12:45 56 L 108/64 10/09/23 12:01 36.6 C 53 L 18 122/67 97 Room Air 10/09/23 09:00 Room Air 10/09/23 07:45 36.3 C L 49 L 18 108/63 97 Room Air 10/09/23 03:16 36.7 C 55 L 18 112/58 L 95 Room Air Laboratory Results CBC renal panel chest x-ray CT abdomen and pelvis (2) CKD (chronic kidney disease) Chronic kidney disease stage: unspecified stage Qualified Code(s): N18.9 - Chronic kidney disease, unspecified (4) Sacral wound Encounter type: initial encounter Qualified Code(s): S31.000A - Unspecified open wound of lower back and pelvis without penetration into retroperitoneum, initial encounter
[2023-10-09] MEDS: NYSTATIN POWDER 15GM BTL EXT SCH (14:57)
[2023-10-09] MEDS: AMMONIUM LACTATE 12% LOTION 225 GM BTL EXT SCH (19:59)
[2023-10-10] MEDS ORDERED: Nursing to Pharmacy Communication SCH ×3 (04:00→20:30)
[2023-10-10 06:15] LABS: Hematocrit (blood only) 34.3 % (42.0-52.0); Hemoglobin 11.1 g/dl (14.0-18.0); Mean Corpuscular Hgb Conc 32.4 g/dL (32.0-36.0); Mean Corpuscular Volume 92.7 fL (80.0-100.0); Platelet Count 132 K/uL (130-400); White Blood Count 8.19 K/ul (4.8-10.8)
[2023-10-10 06:39] LABS: Albumin Globulin Ratio 1.5 (0.9-2); Albumin Level 4.1 gm/dl (3.4-5.0); BUN Creatinine Ratio 19.2 (10-20); Calcium 9.6 mg/dl (8.6-10.3); Creatinine Clr Calc Pharmacy 36.1 ml/min; Est GFR (African American) 34.1 ml/min; Est GFR (Non-African American) 29.4 ml/min; Globulin 2.8 gm/dl (2.5-4.0); Phosphorus 2.8 mg/dl (2.5-4.9); Potassium 4.1 mmol/L (3.5-5.1); Total Protein 6.9 gm/dl (6.0-8.3)
[2023-10-10] MEDS: INSULIN ASPART PER UNIT CHARGE SC SCH ×2 (06:41→20:33)
[2023-10-10] MEDS ORDERED: SODIUM CHLORIDE 0.9% 1,000 ML IV SCH (07:30)
[2023-10-10] MEDS ORDERED: Patient's ALLERGY Info needs ENTERED SCH (07:30)
[2023-10-10] MEDS ORDERED: ROCURONIUM BROMIDE 10 MG/ML 5 ML VIAL IV ONE (07:44)
[2023-10-10] MEDS ORDERED: LIDOCAINE 2% 2 ML VIAL/AMP(20MG/ML) INFIL ONE (07:44)
[2023-10-10] MEDS ORDERED: ONDANSETRON INJ 2 MG/ML 2 ML VIAL ONE (07:44)
[2023-10-10] MEDS ORDERED: PROPOFOL IV EMULSION 10 MG/ML 20 ML VIAL IV ONE (07:44)
[2023-10-10] MEDS ORDERED: fentaNYL citrate PF 100 MCG/2 ML VIAL ONE (07:44)
[2023-10-10] MEDS ORDERED: SUGAMMADEX SODIUM 200 MG/2 ML VIAL IV ONE ×2 (07:45)
[2023-10-10] MEDS: SODIUM CHLORIDE 0.9% 1,000 ML IV SCH (07:50)
--- NOTE | 2023-10-10 08:04 | Anesthesiology Consultation ---
Date of Service October 10, 2023 Assessment & Plan Chart Review Chart Review: Acceptable Risk for Surgery and Patient NOT seen in Pre Admission Testing Consults Requested none ASA ASA3 Proposed Anesthesia Anesthesia Type: General Risk / Benefits Reviewed With: PT / POA / Parent / Guardian, Accepts Plan and Informed Consent Obtained History Surgery Operation Date: 10/10/23 08:05 Proposed Procedures p Sacral Wound Debridement - Chad Hernandez DO, FACS Height/Weight Height: 5 ft 11 in Weight: 97.9 kg Allergies Allergy/AdvReac Type Severity Reaction Status Date / Time No Known Allergies Allergy Unverified 10/10/23 07:49 Medications Home Medications Medication Instructions Recorded Confirmed Last Taken alfuzosin 10 mg tablet,extended 10 mg PO DAILY 10/07/23 10/07/23 Unknown release 24 hr apixaban 5 mg tablet (Eliquis) 5 mg PO BID 10/07/23 10/07/23 10/07/23 09:00 furosemide 40 mg tablet 40 mg PO DAILY 10/07/23 10/07/23 Unknown lisinopril 20 mg tablet 20 mg PO BID 10/07/23 10/07/23 Unknown spironolactone 50 mg tablet 100 mg PO DAILY 10/07/23 10/07/23 Unknown Active Medications Generic Name Dose Route Start Last Admin Trade Name Freq PRN Reason Stop Dose Admin Calcium Carbonate 1,500 mg 10/08/23 17:53 10/09/23 07:46 Calcium Carbonate 500 Mg Chewable Tab PO 11/07/23 17:52 1,500 mg Q4H PRN Administration Indigestion Piperacillin Sod/Tazobactam Sod 4.5 gm in 100 mls @ 25 mls/hr 10/08/23 02:00 10/10/23 06:41 Zosyn IV 10/18/23 01:59 Infused Q8H ROYAL Infusion Albumin Human 25 gm in 100 mls @ 50 mls/hr 10/08/23 04:00 10/10/23 06:42 Albumin 25% IV 10/11/23 03:59 Infused Q8H ROYAL Infusion Pantoprazole Sodium 40 mg/ 10 mls @ 5 mls/min 10/08/23 10:00 10/09/23 19:59 Syringe IV 11/07/23 09:59 5 mls/min BID ROYAL Administration Daptomycin 350 mg/ Syringe 7 mls @ 3.5 mls/min 10/09/23 11:00 10/09/23 12:45 IV 10/16/23 10:59 3.5 mls/min Q24H ROYAL Administration Protocol Sodium Chloride 1,000 mls @ 15 mls/hr 10/10/23 08:00 10/10/23 07:50 Nss IV 11/09/23 07:59 15 mls/hr .Q24H ROYAL Administration Insulin Aspart 0 units 10/10/23 06:00 10/10/23 06:41 Insulin Aspart Per Unit Charge SC 11/09/23 05:59 Not Given Q6 ROYAL Lactic Acid 1 gm 10/09/23 21:00 10/09/23 19:59 Ammonium Lactate 12% Lotion 225 Gm Btl EXT 11/08/23 20:59 1 gm BID ROYAL Administration Midodrine 2.5 mg 10/08/23 08:00 10/09/23 16:53 Midodrine Hcl 2.5 Mg Tab PO 11/07/23 07:59 2.5 mg TID@0800,1200,1700 ROYAL Administration Nystatin 1 appln 10/09/23 14:00 10/09/23 19:59 Nystatin Powder 15gm Btl EXT 11/08/23 13:59 1 appln TID ROYAL Administration Oxycodone HCl 5 mg 10/07/23 21:58 10/09/23 12:46 Oxycodone Hcl Ir 5 Mg Tab (Immediate Release) PO 10/21/23 21:57 5 mg Q4H PRN Administration Pain Senna/Docusate Sodium 1 tab 10/08/23 09:00 10/09/23 10:20 Docusate Sodium/Senna 50/8.6mg Tab PO 11/07/23 08:59 Not Given QAM ROYAL NPO Date Last Intake of Fluids: 10/09/23 Time Last Intake of Fluids: 22:30 Date Last Intake of Solids: 10/09/23 Time Last Intake of Solids: 22:30 Exercise / Class Metabolic Activity III < 4 Walking/Shop/Light housework Past Anesthesia History No Hx of Anesthesia Complications and No Family Hx of Anesthesia Complications History of PONV No Hx of PONV and No Hx of Motion Sickness Social History Smoking Status: Former smoker Do You Dip or Chew Tobacco: No Hx Alcohol Use: Yes alcohol intake frequency: holidays/special occasions only Hx Substance Use: No substance use type: does not use Review of Systems ROS Unobtainable: All systems reviewed & are unremarkable except as noted in HPI & below Physical Exam Vital Signs Last Vital Signs Temp 36.6 C 10/10/23 07:37 Pulse 59 L 10/10/23 07:37 Resp 16 10/10/23 07:37 BP 128/65 10/10/23 07:37 Pulse Ox 99 10/10/23 07:37 O2 Del Method Room Air 10/10/23 07:37 ENMT Mouth: + edentulous (upper); no TMJ abnormality Thyromental Distance: > or= 3.5 Finger Breadths Mallampati Class: II Neck normal visual inspection and trachea midline; neck extension not limited Respiratory normal respiratory effort Auscultation: lungs clear to auscultation bilaterally Cardiovascular Rate/Rhythm: regular rate and regular rhythm Heart Sounds: no murmur Musculoskeletal Spine: normal cervical ROM Extremities: full ROM of extremities Neurologic moves all extremities Psychiatric Orientation: alert and oriented x 3 Testing Laboratory Results 10/10/23 05:50 10/10/23 05:50 APTT 29 Seconds (21-31) 10/07/23 22:41 Hemoglobin A1c 6.1 % (4.5-5.6) H 10/08/23 05:28 Urine Color Yellow 10/07/23 20:04 Urine Appearance Clear (Clear) 10/07/23 20:04 Urine pH 5.5 (4.5-7.5) 10/07/23 20:04 Ur Specific [place] 1.014 (1.000-1.030) 10/07/23 20:04 Urine Protein Trace (Negative) H 10/07/23 20:04 Urine Glucose (UA) Negative (Negative) 10/07/23 20:04 Urine Ketones Negative (Negative) 10/07/23 20:04 Urine Nitrite Negative (Negative) 10/07/23 20:04 Ur Leukocyte Esterase 2+ (Negative) H 10/07/23 20:04 Urine WBC (Auto) 11-20 /hpf (0-5) H 10/07/23 20:04 Urine RBC (Auto) 0-2 /hpf (0-2) 10/07/23 20:04 U Hyaline Cast (Auto) >20 /lpf (0-2) H 10/07/23 20:04 U Epithel Cells (Auto) 0-2 /hpf (0-2) 10/07/23 20:04 Urine Bacteria (Auto) None Seen (None Seen) 10/07/23 20:04 Blood Type O Positive 10/07/23 22:41 Antibody Screen NEGATIVE 10/07/23 22:41 10/07/23 18:35 Gram Stain - Final Sacrum Wound Culture - Final Staph aureus MRSA 10/08/23 11:45 Gram Stain - Final Peritoneal Fluid Aerobic and Anaerobic Culture - Preliminary No growth to date. 10/07/23 20:04 Urine Culture - Final Urine,Clean Catch More than three types of organisms present, all moderate counts mixed probable skin shreya. No further identifications or sensitivities to follow. 10/10/23 10/09/23 07:18 20:05 POC Glucose 126 H 158 H Electrocardiogram Date: 10/07/23 wide QRS, left anterior fascicular block Echocardiogram Date: 10/15/23 EF: 55-60 moderate pulmonary hypertension
[2023-10-10] MEDS ORDERED: fentaNYL citrate PF 100 MCG/2 ML VIAL IV PRN (08:09)
[2023-10-10] MEDS ORDERED: ATROPINE SULFATE 0.1 MG/ML 10ML SYR IV PRN (08:09)
[2023-10-10] MEDS ORDERED: ePHEDrine sulfate 50 MG/ML AMP IV PRN (08:09)
[2023-10-10] MEDS ORDERED: ONDANSETRON INJ 2 MG/ML 2 ML VIAL IV PRN (08:09)
--- NOTE | 2023-10-10 08:21 | Surgery Progress Note ---
Date of Service October 10, 2023 Assessment & Plan (1) 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 region: Plan: Left ischial tuberosity wound requiring debridement Plan for debridement of ischial wound Risks of the procedure were discussed to include but not limited to bleeding, infection, prolonged healing, damage surrounding structures, need for future more extensive surgery Wound care to manage wound postop (2) Abnormal peritoneal fluid: Plan: Peritoneal fluid of unknown etiology, GI following, surgery to follow this peripherally Admission and Anticipated Discharge Date Admission Date: October 07, 2023 Subjective Admitted with peritoneal fluid collection status post IR drainage, as well as ischial tuberosity wound. 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) Results & Data Vital Signs (Past 12 Hours) Vital Signs Temp Pulse Pulse Resp BP BP Pulse Ox 10/10/23 07:37 36.6 C 59 L 16 128/65 99 10/10/23 07:36 55 L 10/10/23 02:40 36.6 C 55 L 18 116/68 96 10/09/23 22:52 36.7 C 53 L 18 127/69 94 10/09/23 21:36 57 L O2 Del Method 10/10/23 07:37 Room Air 10/10/23 07:36 10/10/23 02:40 Room Air 10/09/23 22:52 Room Air 10/09/23 21:36 PG Care Time/CCT Total # of Minutes Spent Total Time Spent with Patient: Total time spent is greater than 50% in coordination of care (as documented) at patient's floor/unit and/or counseling patient: Coding Level of Care Code 94428 SUB INP/OBS CARE 2/35MIN Diagnoses 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 region L89.329 Abnormal peritoneal fluid R85.9
[2023-10-10] MEDS ORDERED: PHENYLEPHRINE HCL 10 MG/ML VIAL ONE (09:13)
[2023-10-10] MEDS ORDERED: PHENYLEPHRINE 100MCG/ML 10ML SYR IV ONE (09:13)
[2023-10-10] MEDS ORDERED: ePHEDrine sulfate 50 MG/5 ML SYR ONE (09:13)
[2023-10-10] MEDS ORDERED: VASOPRESSIN 20 UNIT/ML VIAL ONE (09:35)
[2023-10-10] MEDS: BUPIVACAINE 0.5 % 5 MG/1 ML MPF 30ML VIAL ONE (09:36)
[2023-10-10] MEDS: BUPIVACAINE LIPOSOME 1.3% 266 MG/20 ML VIAL ONE (09:36)
--- NOTE | 2023-10-10 09:45 | Operative Report ---
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, stage IV I identified the patient and participated in the time-out.: Yes Procedure Operation Date: 10/10/23 08:05 Actual Procedures p ischial tuberosity wound Debridement, 7 x 6 x 5 cm (Not Applicable) - Chad Hernandez DO, TOBY Surgeon Chad Hernandez DO, TOBY Costume Maker Scott Ludwig Estimated Blood Loss 10 Findings Consistent with Post-Op Diagnosis Left ischial tuberosity wound debrided down to bone, 6 cm deep, 7 cm long, 5 cm wide Specimens Ischial tuberosity wound Anesthesia Type General Complications none Disposition Accompanied Patient To Recovery: No Disposition: Recovery Room Indications 73-year-old male presented with unstaged ischial tuberosity wound with slough and necrotic tissue requiring debridement. Plan for debridement ischial tuberosity wound. The risks of the procedure were discussed, all questions were answered, and the patient agreed to proceed with surgery as planned. Description of Procedure The patient was properly identified, consented, and taken to the operating room where he was placed in the supine position. General endotracheal anesthesia was induced. SCDs and a safety belt were placed. The patient was then rolled into the prone position. Preoperative antibiotics were administered. The patient's left buttock and posterior upper thigh was prepped and draped in the standard sterile fashion. Surgical timeout was performed and all parties were in agreement that this was the correct patient and procedure to be performed and we continued as planned. Obviously nonviable necrotic tissue and fat was excised. This was taken all the way down to the bone. This was passed off the table specimen. This was debrided back to healthy and bleeding fat and skin. The wound was irrigated hemostasis confirmed. Exparel mixed with 0.5% Marcaine was injected around the wound. The wound measured 7 cm high by 6 cm deep by 5 cm in width. The wound was then packed with moistened Kerlix. Fluffed gauze, ABDs, and disposable knit underwear were placed. The patient was extubated in the operating room and taken to the PACU where he recovered without apparent incident. All sponge, instrument and needle counts were correct at the conclusion of the procedure. The patient tolerated the procedure well. The nurse practitioner was present and scrubbed for the entire the case. She was critical in positioning the patient, prepping and draping, retraction and exposure, removal of devitalized tissue, packing the wound, placement of dressings. I attest to the content of the Intraoperative Record and any orders documented therein. Any exceptions are noted below.
--- NOTE | 2023-10-10 10:09 | Nephrology Progress Note ---
Date of Service October 10, 2023 Assessment & Plan Admission and Anticipated Discharge Date Admission Date: October 07, 2023 Subjective Assessment & Plan (1) YAHAIRA (acute kidney injury): on admission creatinine was 2.52 and it is trending down and is now about 2.1 for 2 days. Almost certainly the initial acute kidney injury was related with profound hypotension he had with blood pressure in the 70s. Blood pressure is much better after IV fluid and midodrine and as a result we are seeing better kidney function. agree with holding Lasix and spironolactone. Continue albumin. renally adjust the dose of antibiotics strict input output charting avoid hypotension avoid contrast agent and NSAIDs. Overnight renal function did not improve further. Also I dont know his baseline renal function. (2) CKD (chronic kidney disease): based on his comorbid disease profile with long-term diabetes congestive heart failure he most likely has some degree of CKD although I do not know his recent baseline creatinine. (3) Ascites: currently has a catheter and is draining (4) Sacral wound: he has been mostly bed-bound for many months now and as a result has a sacral wound in his buttock. He is getting antibiotics for this daptomycin and IV Zosyn. continue same + just had srgical wound debridement. S--had wound debridement just now. BP not low and otherwise vital signs are fine.Making urine Physical Exam Constitutional: WD/WN, vitals as above Respiratory: normal respiratory effort, lungs clear to auscultation. No edema Cardiovascular: Rate/Rhythm: regular rate and regular rhythm Gastrointestinal (Abdomen): normal bowel sounds, soft, nontender, no hepatosplenomegaly drain in right abdomen. Psychiatric: Orientation: alert and oriented x 3 Results & Data Vital Signs (Past 12 Hours) Vital Signs Temp Pulse Pulse Resp BP BP Pulse Ox 10/10/23 07:37 36.6 C 59 L 16 128/65 99 10/10/23 07:36 55 L 10/10/23 02:40 36.6 C 55 L 18 116/68 96 10/09/23 22:52 36.7 C 53 L 18 127/69 94 O2 Del Method 10/10/23 07:37 Room Air 10/10/23 07:36 10/10/23 02:40 Room Air 10/09/23 22:52 Room Air
--- NOTE | 2023-10-10 10:11 | Nephrology Consultation ---
Date of Consultation October 10, 2023 History of Present Illness Attending Physician: Avril Torres MD History of Present Illness Error see concuslt from 10/08 Allergies Allergy/AdvReac Type Severity Reaction Status Date / Time No Known Allergies Allergy Unverified 10/10/23 07:49 Home Medications Medication Instructions Recorded Confirmed Type alfuzosin 10 mg tablet,extended 10 mg PO DAILY 10/07/23 10/07/23 History release 24 hr apixaban 5 mg tablet (Eliquis) 5 mg PO BID 10/07/23 10/07/23 History furosemide 40 mg tablet 40 mg PO DAILY 10/07/23 10/07/23 History lisinopril 20 mg tablet 20 mg PO BID 10/07/23 10/07/23 History spironolactone 50 mg tablet 100 mg PO DAILY 10/07/23 10/07/23 History Patient History Social History Smoking Status: Former smoker Second Hand Exposure: No; Do You Dip or Chew Tobacco: No; Tobacco Cessation Education Requested by Patient: No Hx Alcohol Use: Yes Hx Substance Use: No Preferred Language: Faroese Communication Ability: Effective Bee Robber Required: No Beliefs That Will Affect Care: None Current Living Situation: Spouse Other Information That Helps Us Care for You: No Feels Safe at Home: Yes Safety Concerns: Feels Safe At This Time Assistive Devices: Walker and Other Results & Data Vital Signs (Past 12 Hours) Vital Signs Temp Pulse Pulse Resp BP BP Pulse Ox 10/10/23 07:37 36.6 C 59 L 16 128/65 99 10/10/23 07:36 55 L 10/10/23 02:40 36.6 C 55 L 18 116/68 96 10/09/23 22:52 36.7 C 53 L 18 127/69 94 O2 Del Method 10/10/23 07:37 Room Air 10/10/23 07:36 10/10/23 02:40 Room Air 10/09/23 22:52 Room Air
--- NOTE | 2023-10-10 10:32 | Anesthesiology Progress Note ---
Date of Service October 10, 2023 Anesthesia Post Procedure Vital Signs Vital Signs: Temp Pulse Pulse Resp BP BP Pulse Ox 10/10/23 10:20 36.5 C 57 L 18 114/69 94 10/10/23 10:10 58 L 16 104/56 L 95 10/10/23 10:00 59 L 20 97/70 L 94 10/10/23 09:52 36.1 C L 58 L 20 118/75 97 10/10/23 07:37 36.6 C 59 L 16 128/65 99 10/10/23 07:36 55 L 10/10/23 02:40 36.6 C 55 L 18 116/68 96 10/09/23 22:52 36.7 C 53 L 18 127/69 94 10/09/23 21:36 57 L 10/09/23 19:22 36.4 C L 53 L 18 115/62 95 10/09/23 19:15 10/09/23 16:00 36.6 C 55 L 18 107/62 95 10/09/23 14:00 51 L 10/09/23 12:45 56 L 108/64 10/09/23 12:01 36.6 C 53 L 18 122/67 97 10/09/23 11:55 63 O2 Del Method O2 Flow Rate 10/10/23 10:20 Room Air 10/10/23 10:10 Room Air 10/10/23 10:00 Room Air 10/10/23 09:52 Oxymask 4 10/10/23 07:37 Room Air 10/10/23 07:36 10/10/23 02:40 Room Air 10/09/23 22:52 Room Air 10/09/23 21:36 10/09/23 19:22 Room Air 10/09/23 19:15 Room Air 10/09/23 16:00 Room Air 10/09/23 14:00 10/09/23 12:45 10/09/23 12:01 Room Air 10/09/23 11:55 Pain Intensity Right Abdomen: Pain Intensity: 1 Transfer of Care Handoff Completed per policy Notes Mental Status: alert / awake / arousable Patient Amnestic to Procedure: Yes Nausea / Vomiting: adequately controlled Pain: adequately controlled Airway Patency, RR, SpO2: stable & adequate BP & HR: stable & adequate Hydration State: stable & adequate Anesthetic Complications: no major complications apparent and Pt Satisfied with anesthetic care
[2023-10-10] MEDS: PLASMA-LYTE A 1,000 ML IV SCH (11:48)
--- NOTE | 2023-10-10 14:26 | Gastroenterology Progress Note ---
Date of Service October 10, 2023 Assessment & Plan (1) Ascites: Plan: - continue with IV zosyn. - recommend ID consult. - Recommend getting a repeat CT scan on Friday to assess the status of the collection. Admission and Anticipated Discharge Date Admission Date: October 07, 2023 Supervising Physician Co-Signing Physician Notes I saw and examined this patient with our nurse practitioner and agree with her assessment and plan. Clinically stable continues to drain fluid from the percutaneous intra-abdominal drain. Pathology negative. Etiology of fluid collection still unclear however treatment remains the same to continue drainage continue antibiotics and repeat imaging early next week to assess effects of therapy. Subjective Patient went for I&D of his sacral wound this morning. abdominal drain is still draining brown fluid this afternoon. He has some discomfort at the drain site in his abdomen. he offers no other GI concerns at this time. Pathology reads as follows: Peritoneal fluid (cytologic analysis): - Severe acute peritonitis is seen. - No tumor seen. - please see full report in chart no growth to date on the culture. Review of Systems Review of Systems: All systems reviewed & are unremarkable except as noted in HPI & below Physical Exam Constitutional: WD/WN, vitals as above Respiratory: normal respiratory effort, lungs clear to auscultation Cardiovascular: Rate/Rhythm: regular rate and regular rhythm Gastrointestinal (Abdomen): right sided tenderness to palpation, drain in place in right abdomen, soft, no guarding, normal bowel sounds. Psychiatric: Orientation: alert and oriented x 3 Affect: euthymic affect Results & Data Results & Data Vital Signs (Past 12 Hours) Vital Signs Temp Pulse Pulse Resp BP BP Pulse Ox 10/10/23 13:04 63 18 102/63 94 10/10/23 12:02 62 111/64 93 10/10/23 11:55 98.1 F 61 18 121/68 93 10/10/23 11:45 61 108/65 92 10/10/23 11:30 61 105/58 L 94 10/10/23 11:11 98.2 F 62 121/68 94 10/10/23 10:30 58 L 20 121/64 94 10/10/23 10:20 97.7 F 57 L 18 114/69 94 10/10/23 10:10 58 L 16 104/56 L 95 10/10/23 10:00 59 L 20 97/70 L 94 10/10/23 09:52 97.0 F L 58 L 20 118/75 97 10/10/23 07:37 97.9 F 59 L 16 128/65 99 10/10/23 07:36 55 L 10/10/23 02:40 97.9 F 55 L 18 116/68 96 O2 Del Method O2 Flow Rate 10/10/23 13:04 Room Air 10/10/23 12:02 Room Air 10/10/23 11:55 Room Air 10/10/23 11:45 Room Air 10/10/23 11:30 Room Air 10/10/23 11:11 Room Air 10/10/23 10:30 Room Air 10/10/23 10:20 Room Air 10/10/23 10:10 Room Air 10/10/23 10:00 Room Air 10/10/23 09:52 Oxymask 4 10/10/23 07:37 Room Air 10/10/23 07:36 10/10/23 02:40 Room Air Coding Level of Care Code 77484 SUB INP/OBS CARE 03/06MIN Diagnoses Ascites R18.8
[2023-10-10] MEDS: guaiFENesin/DEXTROM SYRUP 200MG/20MG 10ML UDC PO STA (15:21)
[2023-10-10] MEDS ORDERED: HYDROmorphone INJ 0.5 MG/0.5 ML SYR IV PRN (15:47)
--- NOTE | 2023-10-10 15:49 | Hospitalist Progress Note ---
Date of Service October 10, 2023 Assessment & Plan (1) Hypotension: Plan: Mr. Iniguez is a 73 yo gentleman with medical history significant for CHF, hypertension, Eliquis Rx for heart disease, questionable cirrhosis, DM2 on oral medications, BPH, left buttock wound, past tobacco abuse who is admitted for worsening sacral decubitus ulcer. Patient with peritoneal fluid collections however CT without signs of cirrhosis. IR consulted to drain collection which was consistent with infection with drain placed on 10/07. Review of imaging reveals low suspicion of cirrhosis. Patient feeling much improved overall. No acute concerns after debridement 10/09. HIV test consented given accidental needle stick in OR. 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, stage IV #c/f osteomyelitis Surgery consulted--rotate q2h Wound care consult MRSA + s/p debridement on 10/09, tissue removed to bone -Follow up wound care instructions Given depth of ulcer/wound, will transition to Daptomycin ID consult #Hypotension #Chronic Heart failure with preserved EF #Pulm HTN, PASP 50-60 ECHO 10/07, mildly reduced RVSP, PASP elevated Continue Midodrine Will likely need lasix resumed eventually #YAHAIRA on likely CKD no clear baseline, presumed underlying CKD BUN elevated Hold lasix Consult nephrology, reviewed recommendations -Avoid hypotension -Hold lasix/spironolactone avoid nephrotoxic agents repeat bmp #Left-sided chest pain with troponin elevation stable plateaued trop elevation, likely multifactorial low suscipion for ACS #Anemia secondary to LGIB (blood-streaked stools from constipation), unknown baseline No clear chronicity noted b12 and folate WNL, ferritin elevated, likely chronic iso renal disease Trend BMP continue IV ppi #Persistent A-fib ("heart disease as per patient" Rate controlled, noncompliant with eliquis Resume Eliquis as able #DM2 on oral medications, HgbA1C 6.1% SSI #Possible deconditioning PT/OT:possible rehab #past tobacco abuse encouraged continued cessation, no etoh use noted PT OT ordered DVT prophylaxis. SCDs for now DNR/DNI Admission and Anticipated Discharge Date Admission Date: October 07, 2023 Subjective evaluated after debridement Denies any new concerns, feels agitated after all the movement today Physical Exam Constitutional: WD/WN, vitals as above Respiratory: normal respiratory effort, lungs clear to auscultation Cardiovascular: RRR, no murmur, no edema Musculoskeletal: drain in abdominal abscess cavity placed Results & Data Results & Data Vital Signs (Past 12 Hours) Vital Signs Temp Pulse Pulse Resp BP BP Pulse Ox 10/10/23 13:04 63 18 102/63 94 10/10/23 12:02 62 111/64 93 10/10/23 11:55 36.7 C 61 18 121/68 93 10/10/23 11:45 61 108/65 92 10/10/23 11:30 61 105/58 L 94 10/10/23 11:11 36.8 C 62 121/68 94 10/10/23 10:30 58 L 20 121/64 94 10/10/23 10:20 36.5 C 57 L 18 114/69 94 10/10/23 10:10 58 L 16 104/56 L 95 10/10/23 10:00 59 L 20 97/70 L 94 10/10/23 09:52 36.1 C L 58 L 20 118/75 97 10/10/23 07:37 36.6 C 59 L 16 128/65 99 10/10/23 07:36 55 L 10/10/23 06:55 O2 Del Method O2 Flow Rate 10/10/23 13:04 Room Air 10/10/23 12:02 Room Air 10/10/23 11:55 Room Air 10/10/23 11:45 Room Air 10/10/23 11:30 Room Air 10/10/23 11:11 Room Air 10/10/23 10:30 Room Air 10/10/23 10:20 Room Air 10/10/23 10:10 Room Air 10/10/23 10:00 Room Air 10/10/23 09:52 Oxymask 4 10/10/23 07:37 Room Air 10/10/23 07:36 10/10/23 06:55 Room Air Laboratory Results Short CBC 10/10/23 Range/Units 05:50 WBC 8.19 (4.8-10.8) K/ul Hgb 11.1 L (14.0-18.0) g/dl Hct 34.3 L (42.0-52.0) % Plt Count 132 (130-400) K/uL BMP 10/10/23 05:50 Sodium 137 Potassium 4.1 Chloride 102 Carbon Dioxide 26 BUN 41 H Creatinine 2.14 H Glucose 129 H Calcium 9.6 Liver Function 10/10/23 Range/Units 05:50 Total Bilirubin 2.0 H (0.2-1.0) mg/dl AST 10 L (13-39) U/L ALT 5 L (7-52) U/L Alkaline Phosphatase 66 (34-104) U/L Albumin 4.1 (3.4-5.0) gm/dl Medications Administered Home Medications Medication Instructions Recorded Confirmed Last Taken alfuzosin 10 mg tablet,extended 10 mg PO DAILY 10/07/23 10/07/23 Unknown release 24 hr apixaban 5 mg tablet (Eliquis) 5 mg PO BID 10/07/23 10/07/23 10/07/23 09:00 furosemide 40 mg tablet 40 mg PO DAILY 10/07/23 10/07/23 Unknown lisinopril 20 mg tablet 20 mg PO BID 10/07/23 10/07/23 Unknown spironolactone 50 mg tablet 100 mg PO DAILY 10/07/23 10/07/23 Unknown Active Medications Generic Name Dose Route Start Last Admin Trade Name Freq PRN Reason Stop Dose Admin Calcium Carbonate 1,500 mg 10/08/23 17:53 10/09/23 07:46 Calcium Carbonate 500 Mg Chewable Tab PO 11/07/23 17:52 1,500 mg Q4H PRN Administration Indigestion Piperacillin Sod/Tazobactam Sod 4.5 gm in 100 mls @ 25 mls/hr 10/08/23 02:00 10/10/23 11:57 Zosyn IV 10/18/23 01:59 25 mls/hr Q8H ROYAL Administration Albumin Human 25 gm in 100 mls @ 50 mls/hr 10/08/23 04:00 10/10/23 14:58 Albumin 25% IV 10/11/23 03:59 Infused Q8H ROYAL Infusion Pantoprazole Sodium 40 mg/ 10 mls @ 5 mls/min 10/08/23 10:00 10/10/23 11:34 Syringe IV 11/07/23 09:59 5 mls/min BID ROYAL Administration Daptomycin 350 mg/ Syringe 7 mls @ 3.5 mls/min 10/09/23 11:00 10/10/23 11:44 IV 10/16/23 10:59 3.5 mls/min Q24H ROYAL Administration Protocol Parenteral Electrolytes 1,000 mls @ 125 mls/hr 10/10/23 07:30 10/10/23 11:48 Plasma-Lyte A Ph 7.4 IV 10/11/23 11:44 125 mls/hr .Q8H ROYAL Administration Insulin Aspart 0 units 10/10/23 06:00 10/10/23 13:14 Insulin Aspart Per Unit Charge SC 11/09/23 05:59 2 units Q6 ROYAL Administration Lactic Acid 1 gm 10/09/23 21:00 10/10/23 11:29 Ammonium Lactate 12% Lotion 225 Gm Btl EXT 11/08/23 20:59 1 gm BID ROYAL Administration Midodrine 2.5 mg 10/08/23 08:00 10/10/23 12:07 Midodrine Hcl 2.5 Mg Tab PO 11/07/23 07:59 2.5 mg TID@0800,1200,1700 ROYAL Administration Nystatin 1 appln 10/09/23 14:00 10/10/23 14:55 Nystatin Powder 15gm Btl EXT 11/08/23 13:59 1 appln TID ROYAL Administration Oxycodone HCl 5 mg 10/07/23 21:58 10/10/23 12:54 Oxycodone Hcl Ir 5 Mg Tab (Immediate Release) PO 10/21/23 21:57 5 mg Q4H PRN Administration Pain Senna/Docusate Sodium 1 tab 10/08/23 09:00 10/10/23 11:37 Docusate Sodium/Senna 50/8.6mg Tab PO 11/07/23 08:59 1 tab QAM ROYAL Administration (1) Hypotension Hypotension type: unspecified hypotension type Qualified Code(s): I95.9 - Hypotension, unspecified
--- NOTE | 2023-10-10 21:32 | Electrocardiogram Report ---
Test Reason : Blood Pressure : */* mmHG Vent. Rate : 64 BPM Atrial Rate : 64 BPM P-R Int : * ms QRS Dur : 120 ms QT Int : 446 ms P-R-T Axes : * -44 112 degrees QTcB Int : 460 ms Atrial fibrillation Left axis deviation Non-specific intra-ventricular conduction block Minimal voltage criteria for LVH, may be normal variant T wave abnormality, consider lateral ischemia Abnormal ECG No previous ECGs available Confirmed by Lai Ramirez ([id number]) on 10/10/2023 9:32:10 PM Referred By: REFERRED SELF Confirmed By: Lai Ramirez
--- NOTE | 2023-10-10 21:37 | Electrocardiogram Report ---
Test Reason : Blood Pressure : */* mmHG Vent. Rate : 61 BPM Atrial Rate : * BPM P-R Int : * ms QRS Dur : 122 ms QT Int : 478 ms P-R-T Axes : * -55 116 degrees QTcB Int : 481 ms Atrial fibrillation Non-specific intra-ventricular conduction block Minimal voltage criteria for LVH, may be normal variant ( [place] product ) Abnormal ECG When compared with ECG of 07-Oct-2023 17:45, No significant change Confirmed by Lai Ramirez ([id number]) on 10/10/2023 9:37:23 PM Referred By: REFERRED SELF Confirmed By: Lai Ramirez
[2023-10-11] MEDS: LACTULOSE SYRUP 30 GM/45 ML UDP PO STA (03:09)
[2023-10-11 07:45] LABS: Hematocrit (blood only) 30.4 % (42.0-52.0); Hemoglobin 9.6 g/dl (14.0-18.0); Mean Corpuscular Hemoglobin 29.9 pg (25.0-34.0); Mean Corpuscular Hgb Conc 31.6 g/dL (32.0-36.0); Mean Corpuscular Volume 94.7 fL (80.0-100.0); Mean Platelet Volume 11.1 fL (9.4-12.4); Platelet Count 123 K/uL (130-400); RDW Coefficient of Variation 18.2 % (11.5-14.5); Red Blood Count 3.21 M/uL (4.70-6.10); White Blood Count 8.18 K/ul (4.8-10.8)
[2023-10-11 08:09] LABS: BUN Creatinine Ratio 17.7 (10-20); Calcium 8.8 mg/dl (8.6-10.3); Est GFR (Non-African American) 40.6 ml/min; Magnesium 1.9 mg/dl (1.7-2.4); Phosphorus 2.9 mg/dl (2.5-4.9); Potassium 4.5 mmol/L (3.5-5.1)
--- NOTE | 2023-10-11 09:27 | Gastroenterology Progress Note ---
Date of Service October 11, 2023 Assessment & Plan (1) Intra-abdominal abscess: Plan: Continue drainage from percutaneous drain. Catheter continues to drain a large volume of fluid daily. Etiology of collection still unclear. Patient relates that he has had this problem for a while before presenting here. Await infectious disease input. Recommend repeat CT scan early next week to assess status of collection. Will try to obtain prior imaging elsewhere to document chronicity of this problem. This could represent a chronic intra-abdominal inclusion cyst that has been present for some time now. Without evidence of cirrhosis unlikely related to underlying liver disease. May ultimately need surgical evaluation if does not resolve. Admission and Anticipated Discharge Date Admission Date: October 07, 2023 Subjective Resting comfortably major complaint is his sacral ulcer pain. Review of Systems Review of Systems: No fever No chills No SOB No CP No Abd pain Physical Exam Physical Exam: Eyes; anicteric HENT No masses Chest clear to A Cor S1, S2 physiologic Abd: softer nontender no masses Ext no edema Results & Data Results & Data Vital Signs (Past 12 Hours) Vital Signs Temp Pulse Pulse Resp BP Pulse Ox O2 Del Method 10/11/23 07:25 36.7 C 61 18 107/60 96 Room Air 10/11/23 02:57 36.7 C 57 L 18 124/73 98 Nasal Cannula 10/11/23 00:00 56 L 10/10/23 22:50 36.4 C L 60 18 119/69 98 Nasal Cannula O2 Flow Rate 10/11/23 07:25 10/11/23 02:57 2.0 10/11/23 00:00 10/10/23 22:50 2.0 Laboratory Results Laboratory Results - last 48 hr 10/09/23 10/09/23 10/09/23 11:44 16:07 20:05 WBC RBC Hgb Hct MCV MCH MCHC RDW Std Deviation RDW Coeff of Ramu Plt Count MPV Sodium Potassium Chloride Carbon Dioxide Anion Gap BUN Creatinine Est Cr Clr Drug Dosing Est GFR ( Amer) Est GFR (Non-Af Amer) BUN/Creatinine Ratio Glucose POC Glucose 184 H 125 H 158 H Calcium Phosphorus Magnesium Total Bilirubin AST ALT Alkaline Phosphatase Total Protein Albumin Globulin Albumin/Globulin Ratio 10/10/23 10/10/23 10/10/23 05:50 07:18 10:03 WBC 8.19 RBC 3.70 L Hgb 11.1 L Hct 34.3 L MCV 92.7 MCH 30.0 MCHC 32.4 RDW Std Deviation 61.0 H RDW Coeff of Ramu 18.0 H Plt Count 132 MPV 11.0 Sodium 137 Potassium 4.1 Chloride 102 Carbon Dioxide 26 Anion Gap 9 BUN 41 H Creatinine 2.14 H Est Cr Clr Drug Dosing 36.1 Est GFR ( Amer) 34.1 Est GFR (Non-Af Amer) 29.4 BUN/Creatinine Ratio 19.2 Glucose 129 H POC Glucose 126 H 138 H Calcium 9.6 Phosphorus 2.8 Magnesium 2.0 Total Bilirubin 2.0 H AST 10 L ALT 5 L Alkaline Phosphatase 66 Total Protein 6.9 Albumin 4.1 Globulin 2.8 Albumin/Globulin Ratio 1.5 10/10/23 10/10/23 10/10/23 11:11 12:38 16:38 WBC RBC Hgb Hct MCV MCH MCHC RDW Std Deviation RDW Coeff of Ramu Plt Count MPV Sodium Potassium Chloride Carbon Dioxide Anion Gap BUN Creatinine Est Cr Clr Drug Dosing Est GFR ( Amer) Est GFR (Non-Af Amer) BUN/Creatinine Ratio Glucose POC Glucose 164 H 145 H 147 H Calcium Phosphorus Magnesium Total Bilirubin AST ALT Alkaline Phosphatase Total Protein Albumin Globulin Albumin/Globulin Ratio 10/10/23 10/11/23 10/11/23 20:29 06:45 07:31 WBC 8.18 RBC 3.21 L Hgb 9.6 L Hct 30.4 L MCV 94.7 MCH 29.9 MCHC 31.6 L RDW Std Deviation 63.0 H RDW Coeff of Ramu 18.2 H Plt Count 123 L MPV 11.1 Sodium 139 Potassium 4.5 Chloride 104 Carbon Dioxide 29 Anion Gap 6 BUN 29 H Creatinine 1.64 H D Est Cr Clr Drug Dosing 50.0 Est GFR ( Amer) 47.0 Est GFR (Non-Af Amer) 40.6 BUN/Creatinine Ratio 17.7 Glucose 109 H POC Glucose 126 H 107 H Calcium 8.8 Phosphorus 2.9 Magnesium 1.9 Total Bilirubin AST ALT Alkaline Phosphatase Total Protein Albumin Globulin Albumin/Globulin Ratio PG Care Time/CCT Total # of Minutes Spent Total Time Spent with Patient: Total time spent is greater than 50% in coordination of care (as documented) at patient's floor/unit and/or counseling patient: Coding Level of Care Code 53943 SUB INP/OBS CARE 235MIN Diagnoses Intra-abdominal abscess K65.1
--- NOTE | 2023-10-11 09:33 | Hospitalist Progress Note ---
Date of Service October 11, 2023 Assessment & Plan (1) Hypotension: Plan: Mr. Iniguez is a 73 yo gentleman with medical history significant for CHF, hypertension, Eliquis Rx for heart disease, questionable cirrhosis, DM2 on oral medications, BPH, left buttock wound, past tobacco abuse who is admitted for worsening sacral decubitus ulcer. Patient with peritoneal fluid collections however CT without signs of cirrhosis. IR consulted to drain collection which was consistent with infection with drain placed on 10/07. Review of imaging reveals low suspicion of cirrhosis. Patient feeling much improved overall. No acute concerns after debridement 10/09. HIV test consented given accidental needle stick in OR. 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, stage IV #c/f osteomyelitis Surgery consulted--rotate q2h Wound care consult MRSA + s/p debridement on 10/09, tissue removed to bone -Follow up wound care instructions Given depth of ulcer/wound, will transition to Daptomycin ID consult #Hypotension #Chronic Heart failure with preserved EF #Pulm HTN, PASP 50-60 ECHO 10/07, mildly reduced RVSP, PASP elevated Continue Midodrine Will likely need lasix resumed eventually #YAHAIRA on likely CKD*improving no clear baseline, presumed underlying CKD BUN elevated Hold lasix Consult nephrology, reviewed recommendations -Avoid hypotension -Hold lasix/spironolactone avoid nephrotoxic agents repeat bmp #Left-sided chest pain with troponin elevation stable plateaued trop elevation, likely multifactorial low suspicion for ACS #Anemia secondary Chronic disease likely(blood-streaked stools from constipation), unknown baseline No clear chronicity noted b12 and folate WNL, ferritin elevated, likely chronic iso renal disease Trend BMP continue IV ppi--transition to PO #Persistent A-fib ("heart disease as per patient" Rate controlled, noncompliant with eliquis Resume Eliquis as able, plan for Friday #DM2 on oral medications, HgbA1C 6.1% SSI #Possible deconditioning PT/OT:possible rehab #past tobacco abuse encouraged continued cessation, no etoh use noted PT OT ordered DVT prophylaxis. SCDs for now, start heparin sq DNR/DNI Admission and Anticipated Discharge Date Admission Date: October 07, 2023 Subjective NAEO Reports feeling much better after debridement yesterday Denies any chest pain, sob, or nausea or vomiting Reports abdomen feeling better with drainage Physical Exam Constitutional: WD/WN, vitals as above Respiratory: normal respiratory effort, lungs clear to auscultation Cardiovascular: irregularly irregular Gastrointestinal (Abdomen): normal bowel sounds, soft, nontender, no hepatosplenomegaly (significant output of right abdomen drain, brown fluid in bad ) Results & Data Results & Data Vital Signs (Past 12 Hours) Vital Signs Temp Pulse Pulse Resp BP Pulse Ox O2 Del Method 10/11/23 07:25 36.7 C 61 18 107/60 96 Room Air 10/11/23 02:57 36.7 C 57 L 18 124/73 98 Nasal Cannula 10/11/23 00:00 56 L 10/10/23 22:50 36.4 C L 60 18 119/69 98 Nasal Cannula O2 Flow Rate 10/11/23 07:25 10/11/23 02:57 2.0 10/11/23 00:00 10/10/23 22:50 2.0 Laboratory Results Short CBC 10/11/23 Range/Units 06:45 WBC 8.18 (4.8-10.8) K/ul Hgb 9.6 L (14.0-18.0) g/dl Hct 30.4 L (42.0-52.0) % Plt Count 123 L (130-400) K/uL BMP 10/11/23 06:45 Sodium 139 Potassium 4.5 Chloride 104 Carbon Dioxide 29 BUN 29 H Creatinine 1.64 H D Glucose 109 H Calcium 8.8 Medications Administered Home Medications Medication Instructions Recorded Confirmed Last Taken alfuzosin 10 mg tablet,extended 10 mg PO DAILY 10/07/23 10/07/23 Unknown release 24 hr apixaban 5 mg tablet (Eliquis) 5 mg PO BID 10/07/23 10/07/23 10/07/23 09:00 furosemide 40 mg tablet 40 mg PO DAILY 10/07/23 10/07/23 Unknown lisinopril 20 mg tablet 20 mg PO BID 10/07/23 10/07/23 Unknown spironolactone 50 mg tablet 100 mg PO DAILY 10/07/23 10/07/23 Unknown Active Medications Generic Name Dose Route Start Last Admin Trade Name Ashley PRN Reason Stop Dose Admin Calcium Carbonate 1,500 mg 10/08/23 17:53 10/09/23 07:46 Calcium Carbonate 500 Mg Chewable Tab PO 11/07/23 17:52 1,500 mg Q4H PRN Administration Indigestion Piperacillin Sod/Tazobactam Sod 4.5 gm in 100 mls @ 25 mls/hr 10/08/23 02:00 10/11/23 11:25 Zosyn IV 10/18/23 01:59 25 mls/hr Q8H ROYAL Administration Pantoprazole Sodium 40 mg/ 10 mls @ 5 mls/min 10/08/23 10:00 10/11/23 08:26 Syringe IV 11/07/23 09:59 5 mls/min BID ROYAL Administration Daptomycin 350 mg/ Syringe 7 mls @ 3.5 mls/min 10/09/23 11:00 10/11/23 11:25 IV 10/16/23 10:59 3.5 mls/min Q24H ROYAL Administration Protocol Insulin Aspart 0 units 10/10/23 21:00 10/11/23 08:25 Insulin Aspart Per Unit Charge SC 11/09/23 20:59 4 units ACHS ROYAL Administration Lactic Acid 1 gm 10/09/23 21:00 10/11/23 08:25 Ammonium Lactate 12% Lotion 225 Gm Btl EXT 11/08/23 20:59 1 gm BID ROYAL Administration Midodrine 2.5 mg 10/08/23 08:00 10/11/23 08:25 Midodrine Hcl 2.5 Mg Tab PO 11/07/23 07:59 2.5 mg TID@0800,1200,1700 ROYAL Administration Nystatin 1 appln 10/09/23 14:00 10/11/23 08:25 Nystatin Powder 15gm Btl EXT 11/08/23 13:59 1 appln TID ROYAL Administration Oxycodone HCl 5 mg 10/07/23 21:58 10/10/23 12:54 Oxycodone Hcl Ir 5 Mg Tab (Immediate Release) PO 10/21/23 21:57 5 mg Q4H PRN Administration Pain Senna/Docusate Sodium 1 tab 10/08/23 09:00 10/11/23 08:25 Docusate Sodium/Senna 50/8.6mg Tab PO 11/07/23 08:59 Not Given QAM ROYAL (1) Hypotension Hypotension type: unspecified hypotension type Qualified Code(s): I95.9 - Hypotension, unspecified
--- NOTE | 2023-10-11 10:14 | Surgery Progress Note ---
Date of Service October 11, 2023 Assessment & Plan (1) 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 region: Plan: con't dressings wound nurse to evaluate early next wek Admission and Anticipated Discharge Date Admission Date: October 07, 2023 Subjective patient with no complaints Review of Systems Constitutional: no fever and no chills Respiratory: no cough and no dyspnea Cardiovascular: no chest pain Gastrointestinal: no abdominal pain Genitourinary: no dysuria Musculoskeletal: no back pain Neurologic: + generalized weakness Psychiatric: no behavioral changes Physical Exam Constitutional: WD/WN, vitals as above Respiratory: normal respiratory effort, lungs clear to auscultation Cardiovascular: RRR, no murmur, no edema Gastrointestinal (Abdomen): Inspection/Auscultation: abdomen normal to inspection, + abdomen distended, normal bowel sounds and + abdominal surgical drain present Percussion/Palpation: abdomen soft; abdomen nontender Musculoskeletal: Head/Neck/Chest: normocephalic and head atraumatic Results & Data Vital Signs (Past 12 Hours) Vital Signs Temp Pulse Pulse Resp BP Pulse Ox O2 Del Method 10/11/23 07:25 36.7 C 61 18 107/60 96 Room Air 10/11/23 02:57 36.7 C 57 L 18 124/73 98 Nasal Cannula 10/11/23 00:00 56 L 10/10/23 22:50 36.4 C L 60 18 119/69 98 Nasal Cannula O2 Flow Rate 10/11/23 07:25 10/11/23 02:57 2.0 10/11/23 00:00 10/10/23 22:50 2.0
--- NOTE | 2023-10-11 13:38 | Nephrology Progress Note ---
Date of Service October 11, 2023 Assessment & Plan (1) YAHAIRA (acute kidney injury): Plan: On admission creatinine was 2.52 and it is trending down and is down to 1.6 today. Almost certainly the initial acute kidney injury was related with profound hypotension he had with blood pressure in the 70s. Blood pressure is much better - Continue to hold Lasix and spironolactone. renally adjust the dose of antibiotics strict input output charting avoid hypotension avoid contrast agent and NSAIDs. given improving renal function no need for further workup for the etiology of acute kidney injury. Obstructive uropathy is already ruled out on the CT scan. He does have nonobstructive kidney stone and renal cyst which can be addressed as an outpatient if patient desires. (2) CKD (chronic kidney disease): Plan: based on his comorbid disease profile with long-term diabetes congestive heart failure he most likely has some degree of CKD although I do not know his recent baseline creatinine (3) Ascites: Plan: currently has a catheter and is draining (4) Sacral wound: Plan: he has been mostly bed-bound for many months now and as a result has a sacral wound in his buttock. He is getting antibiotics for this daptomycin and IV Zosyn. continue same Plan time spent 65 mins. Admission and Anticipated Discharge Date Admission Date: October 07, 2023 Subjective Comfortable Denies any chest pain, sob, or nausea or vomiting Reports abdomen feeling better with drainage Review of Systems 2 Review of Systems: All systems reviewed & are unremarkable except as noted in HPI & below Physical Exam 2 Physical Exam: General - comfortable HENT No masses Chest clear to A Cor S1, S2 physiologic Abd: softer nontender no masses Ext no edema Results & Data Vital Signs (Past 12 Hours) Vital Signs Temp Pulse Resp BP Pulse Ox O2 Del Method O2 Flow Rate 10/11/23 11:00 36.5 C 62 20 114/67 92 Room Air 10/11/23 08:15 Room Air 10/11/23 07:25 36.7 C 61 18 107/60 96 Room Air 10/11/23 02:57 36.7 C 57 L 18 124/73 98 Nasal Cannula 2.0 Laboratory Results 10/11/23 06:45 10/11/23 06:45 (2) CKD (chronic kidney disease) Chronic kidney disease stage: unspecified stage Qualified Code(s): N18.9 - Chronic kidney disease, unspecified (4) Sacral wound Encounter type: initial encounter Qualified Code(s): S31.000A - Unspecified open wound of lower back and pelvis without penetration into retroperitoneum, initial encounter
[2023-10-11] MEDS: HEPARIN SOD 5,000 UNIT/0.5 ML VIAL SQ SCH (14:40)
[2023-10-11] MEDS: PANTOprazole 40 MG TAB PO SCH (20:37)
[2023-10-12 07:20] LABS: Hematocrit (blood only) 31.7 % (42.0-52.0); Hemoglobin 10.1 g/dl (14.0-18.0); Mean Corpuscular Hgb Conc 31.9 g/dL (32.0-36.0); Mean Corpuscular Volume 94.1 fL (80.0-100.0); Mean Platelet Volume 11.2 fL (9.4-12.4); Platelet Count 135 K/uL (130-400); RDW Coefficient of Variation 18.3 % (11.5-14.5); RDW Standard Deviation 62.3 fL (36.4-46.3); Red Blood Count 3.37 M/uL (4.70-6.10); White Blood Count 8.52 K/ul (4.8-10.8)
[2023-10-12 07:46] LABS: Albumin Globulin Ratio 1.3 (0.9-2); Albumin Level 3.6 gm/dl (3.4-5.0); BUN Creatinine Ratio 18.5 (10-20); Bilirubin,Total 1.8 mg/dl (0.2-1.0); Calcium 9.2 mg/dl (8.6-10.3); Creatinine Clr Calc Pharmacy 53.7 ml/min; Est GFR (Non-African American) 44.9 ml/min; Globulin 2.8 gm/dl (2.5-4.0); Magnesium 1.9 mg/dl (1.7-2.4); Phosphorus 2.1 mg/dl (2.5-4.9); Potassium 4.2 mmol/L (3.5-5.1); Total Protein 6.4 gm/dl (6.0-8.3)
--- NOTE | 2023-10-12 08:29 | Gastroenterology Progress Note ---
Date of Service October 12, 2023 Assessment & Plan (1) Intra-abdominal abscess: Plan: Status post percutaneous drainage. Catheter continues to drain fluid. Recommend repeat CT scan this week to assess benefits of drainage. Continue antibiotics. Would have them send off fluid for analysis scan to see whether or not antibiotics are effective. Admission and Anticipated Discharge Date Admission Date: October 07, 2023 Subjective Denies any abdominal pain shortness of breath or chest pain continues with sacral ulcer discomfort. Physical Exam Physical Exam: No acute distress Respiratory rate regular Cardiac rhythm regular Abdomen soft nontender Results & Data Results & Data Vital Signs (Past 12 Hours) Vital Signs Temp Pulse Pulse Resp BP Pulse Ox O2 Del Method 10/12/23 07:19 36.9 C 56 L 18 107/68 94 Room Air 10/12/23 03:21 36.6 C 52 L 16 113/72 92 Room Air 10/11/23 23:04 37.1 C 60 16 103/62 91 Room Air 10/11/23 21:53 60 PG Care Time/CCT Total # of Minutes Spent Total Time Spent with Patient: Total time spent is greater than 50% in coordination of care (as documented) at patient's floor/unit and/or counseling patient: Coding Level of Care Code 69390 SUB INP/OBS CARE 3/50MIN Diagnoses Intra-abdominal abscess K65.1
--- NOTE | 2023-10-12 10:20 | Surgery Progress Note ---
Date of Service October 12, 2023 Assessment & Plan (1) 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 region: Plan: con't dressings wound nurse to see Admission and Anticipated Discharge Date Admission Date: October 07, 2023 Subjective no complaints Review of Systems Constitutional: no fever and no chills Psychiatric: no behavioral changes Physical Exam Skin: left wound with good granualtion Results & Data Vital Signs (Past 12 Hours) Vital Signs Temp Pulse Resp BP Pulse Ox O2 Del Method 10/12/23 07:19 36.9 C 56 L 18 107/68 94 Room Air 10/12/23 03:21 36.6 C 52 L 16 113/72 92 Room Air 10/11/23 23:04 37.1 C 60 16 103/62 91 Room Air
--- NOTE | 2023-10-12 12:55 | Hospitalist Progress Note ---
Date of Service October 12, 2023 Assessment & Plan (1) Hypotension: Plan: Mr. Iniguez is a 73 yo gentleman with medical history significant for CHF, hypertension, Eliquis Rx for heart disease, questionable cirrhosis, DM2 on oral medications, BPH, left buttock wound, past tobacco abuse who is admitted for worsening sacral decubitus ulcer. Patient with peritoneal fluid collections however CT without signs of cirrhosis. IR consulted to drain collection which was consistent with infection with drain placed on 10/07. Review of imaging reveals low suspicion of cirrhosis. Patient feeling much improved overall. No acute concerns after debridement 10/09. HIV test consented given accidental needle stick in OR--resulted negative. Plan for CT ab/p to reassess abscesss. 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, stage IV #c/f osteomyelitis Surgery consulted--rotate q2h Wound care consult MRSA + s/p debridement on 10/09, tissue removed to bone -Follow up wound care instructions Given depth of ulcer/wound, continue Daptomycin ID consult #Hypotension #Chronic Heart failure with preserved EF #Pulm HTN, PASP 50-60 ECHO 10/07, mildly reduced RVSP, PASP elevated Continue Midodrine Will likely need lasix resumed eventually #YAHAIRA on likely CKD*improving no clear baseline, presumed underlying CKD BUN elevated Hold lasix Consult nephrology, reviewed recommendations -Avoid hypotension -Hold lasix/spironolactone avoid nephrotoxic agents trend #Left-sided chest pain with troponin elevation stable plateaued trop elevation, likely multifactorial low suspicion for ACS #Anemia secondary Chronic disease likely(blood-streaked stools from constipat ion), unknown baseline No clear chronicity noted b12 and folate WNL, ferritin elevated, likely chronic iso renal disease Trend BMP continue PO ppi #Persistent A-fib ("heart disease as per patient" Rate controlled, noncompliant with eliquis Start yamilqueric #DM2 on oral medications, HgbA1C 6.1% SSI #Possible deconditioning PT/OT:possible rehab, patient declines at this time #past tobacco abuse encouraged continued cessation, no etoh use noted Downgrade to MSO PT OT ordered DVT prophylaxis. yamilvinceeric DNR/DNI Admission and Anticipated Discharge Date Admission Date: October 07, 2023 Subjective CATARINA Reports feeling a bit frustrated but understands that he needs to stay in hospital for final plans Denies any fevers chills or new concerns Reports feeling a bit bloated, but otherwise no abdominal pain Physical Exam Constitutional: WD/WN, vitals as above Respiratory: normal respiratory effort, lungs clear to auscultation Cardiovascular: irregularly irregular Gastrointestinal (Abdomen): normal bowel sounds, soft, nontender, no hepatosplenomegaly (right abdomen drain, brown fluid in bad ) Results & Data Results & Data Vital Signs (Past 12 Hours) Vital Signs Temp Pulse Resp BP Pulse Ox O2 Del Method 10/12/23 10:19 36.9 C 59 L 20 113/64 94 Room Air 10/12/23 07:19 36.9 C 56 L 18 107/68 94 Room Air 10/12/23 03:21 36.6 C 52 L 16 113/72 92 Room Air Laboratory Results Short CBC 10/12/23 Range/Units 06:38 WBC 8.52 (4.8-10.8) K/ul Hgb 10.1 L (14.0-18.0) g/dl Hct 31.7 L (42.0-52.0) % Plt Count 135 (130-400) K/uL BMP 10/12/23 06:38 Sodium 137 Potassium 4.2 Chloride 103 Carbon Dioxide 27 BUN 28 H Creatinine 1.51 H Glucose 138 H Calcium 9.2 Liver Function 10/12/23 Range/Units 06:38 Total Bilirubin 1.8 H (0.2-1.0) mg/dl AST 10 L (13-39) U/L ALT 5 L (7-52) U/L Alkaline Phosphatase 68 (34-104) U/L Albumin 3.6 (3.4-5.0) gm/dl Medications Administered Home Medications Medication Instructions Recorded Confirmed Last Taken alfuzosin 10 mg tablet,extended 10 mg PO DAILY 10/07/23 10/07/23 Unknown release 24 hr apixaban 5 mg tablet (Eliquis) 5 mg PO BID 10/07/23 10/07/23 10/07/23 09:00 furosemide 40 mg tablet 40 mg PO DAILY 10/07/23 10/07/23 Unknown lisinopril 20 mg tablet 20 mg PO BID 10/07/23 10/07/23 Unknown spironolactone 50 mg tablet 100 mg PO DAILY 10/07/23 10/07/23 Unknown Active Medications Generic Name Dose Route Start Last Admin Trade Name Freq PRN Reason Stop Dose Admin Calcium Carbonate 1,500 mg 10/08/23 17:53 10/09/23 07:46 Calcium Carbonate 500 Mg Chewable Tab PO 11/07/23 17:52 1,500 mg Q4H PRN Administration Indigestion Piperacillin Sod/Tazobactam Sod 4.5 gm in 100 mls @ 25 mls/hr 10/08/23 02:00 10/12/23 12:03 Zosyn IV 10/18/23 01:59 25 mls/hr Q8H ROYAL Administration Daptomycin 350 mg/ Syringe 7 mls @ 3.5 mls/min 10/09/23 11:00 10/12/23 12:03 IV 10/16/23 10:59 3.5 mls/min Q24H ROYAL Administration Protocol Insulin Aspart 0 units 10/10/23 21:00 10/12/23 12:02 Insulin Aspart Per Unit Charge SC 11/09/23 20:59 7 units ACHS ROYAL Administration Lactic Acid 1 gm 10/09/23 21:00 10/12/23 08:14 Ammonium Lactate 12% Lotion 225 Gm Btl EXT 11/08/23 20:59 1 gm BID ROYAL Administration Midodrine 2.5 mg 10/08/23 08:00 10/12/23 13:25 Midodrine Hcl 2.5 Mg Tab PO 11/07/23 07:59 2.5 mg TID@0800,1200,1700 ROYAL Administration Nystatin 1 appln 10/09/23 14:00 10/12/23 13:25 Nystatin Powder 15gm Btl EXT 11/08/23 13:59 1 appln TID ROYAL Administration Oxycodone HCl 5 mg 10/07/23 21:58 10/10/23 12:54 Oxycodone Hcl Ir 5 Mg Tab (Immediate Release) PO 10/21/23 21:57 5 mg Q4H PRN Administration Pain Pantoprazole Sodium 40 mg 10/11/23 21:00 10/12/23 08:15 Pantoprazole 40 Mg Tab PO 11/10/23 20:59 40 mg BID ROYAL Administration Senna/Docusate Sodium 1 tab 10/08/23 09:00 10/12/23 08:16 Docusate Sodium/Senna 50/8.6mg Tab PO 11/07/23 08:59 1 tab QAM ROYAL Administration (1) Hypotension Hypotension type: unspecified hypotension type Qualified Code(s): I95.9 - Hypotension, unspecified
--- NOTE | 2023-10-12 14:37 | CT Scan Report ---
CT OF THE ABDOMEN AND PELVIS WITHOUT CONTRAST CLINICAL HISTORY: reassess loculated abscess with drain COMPARISON STUDY: CT of the abdomen and pelvis October 07, 2023. TECHNIQUE: Axial images of the abdomen and pelvis were obtained without IV contrast. Images were revi ewed in the axial, sagittal, and coronal planes. Automated exposure control was utilized for the jet dy. A dose lowering technique was utilized adhering to the principles of ALARA. FINDINGS: A small right pleural effusion has mildly increased in size since prior exam. Associated ri ght lower lobe airspace opacity with volume loss favors atelectasis. Evaluation of the abdomen and pe lvis is suboptimal on this unenhanced exam. There has been interval placement of a percutaneous drain within the previously described right abdominal fluid collection. This collection has significantly decreased in size. Small to moderate size residual collection residual collection is present. The col lection extends from the perihepatic space to the anterior pelvis. No new fluid collections are prese nt. Body wall edema is present. Unenhanced images of the spleen, adrenal glands and pancreas are unre markable. Water attenuation 4 x 1 cm right upper pole renal lesion favors a cyst. Small bilateral godfrey al calculi measure up to 4 mm. There are no ureteral calculi. No hydronephrosis. There is no evidence for a bowel obstruction. Soft tissue thickening along the inferior aspect of the left ischial tubero sity is noted with several locules of gas. No definite bony erosion. There are also several locules o f gas which extend to the base of the penis within the perineum. Findings are partially imaged on thi s examination. IMPRESSION: 1. Significant decrease in size of the right abdominal fluid collection following percutaneous drain placement. Small to moderate size residual collection. 2. Slight increase in size of a small right pleural effusion. Subpleural right lower lobe opacity wit h volume loss favors atelectasis. 3. Soft tissue thickening with fluid inferior to the left ischial tuberosity with several locules of gas which extend to the perineum and base of the penis. The findings are partially imaged on this exa m but may be due to an underlying left buttock ulcer. ACT 112: Negative or not required by law. Electronically signed by: Dav Hoyt M.D. 10/12/2023 2:35 PM
[2023-10-12] MEDS: FUROSEMIDE 40 MG TAB PO SCH (16:51)
[2023-10-12] MEDS: APIXABAN 5 MG TABLET PO SCH (20:40)
--- NOTE | 2023-10-13 11:53 | Hospitalist Progress Note ---
Date of Service October 13, 2023 Assessment & Plan (1) Hypotension: Plan: Mr. Iniguez is a 73 yo gentleman with medical history significant for CHF, hypertension, Eliquis Rx for heart disease, questionable cirrhosis, DM2 on oral medications, BPH, left buttock wound, past tobacco abuse who is admitted for worsening sacral decubitus ulcer. Patient with peritoneal fluid collections however CT without signs of cirrhosis. IR consulted to drain collection which was consistent with infection with drain placed on 10/07. Review of imaging reveals low suspicion of cirrhosis. Patient feeling much improved overall. No acute concerns after debridement 10/09. HIV test consented given accidental needle stick in OR--resulted negative. Repeat CT AB/P with residual fluid collection, plan to discuss with surgery when removal would be appropriate. #Loculated right-sided peritoneal fluid collection, c/f abscess s/p peritoneal drain reports "paracentesis at the [facility] last month" No signs of liver disease on imaging at this time, nor is fluid c/w cirrhosis GI consulted -follow up fluid studies -Suggestive of "peritonitis" -possibly chronic inclusion cyst -Continue protonix bid, now PO continue zosyn -Fluid with no growth to date hold spironolactone and lasix at this time doesn't meet sepsis criteria--afebrile, HR <90, wbc <12 ID consult placed, likely Friday recs Message sent to Surgery to discuss how long to continue drain given decreased output and any further surgical intervention -Repeat CT reveals small residual collection #MRSA + #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, stage IV #c/f osteomyelitis Surgery consulted--rotate q2h Wound care consult MRSA + s/p debridement on 10/09, tissue removed to bone -Follow up wound care instructions Given depth of ulcer/wound, continue Daptomycin ID consult pending #Hypotension #Chronic Heart failure with preserved EF #Pulm HTN, PASP 50-60 ECHO 10/07, mildly reduced RVSP, PASP elevated Continue Midodrine Resume home lasix #YAHAIRA on likely CKD*improving no clear baseline, presumed underlying CKD BUN elevated Hold lasix Consult nephrology, reviewed recommendations -Avoid hypotension avoid nephrotoxic agents trend #Left-sided chest pain with troponin elevation stable plateaued trop elevation, likely multifactorial low suspicion for ACS #Anemia secondary Chronic disease likely(blood-streaked stools from constipation), unknown baseline No clear chronicity noted b12 and folate WNL, ferritin elevated, likely chronic iso renal disease Trend BMP continue PO ppi #Persistent A-fib ("heart disease as per patient" Rate controlled, noncompliant with eliquis continue eliquis #DM2 on oral medications, HgbA1C 6.1% SSI #Possible deconditioning PT/OT:possible rehab, patient declines at this time #past tobacco abuse encouraged continued cessation, no etoh use noted MSO PT OT ordered DVT prophylaxis. haylee DNR/DNI Admission and Anticipated Discharge Date Admission Date: October 07, 2023 Subjective NAEO Awaiting wound care and ID, however delayed 03/14 holiday Patient overall improved clinically, just upset over awaiting dispo Physical Exam Constitutional: WD/WN, vitals as above Respiratory: normal respiratory effort, lungs clear to auscultation Cardiovascular: irregularly irregular Gastrointestinal (Abdomen): abdominal drain in place Results & Data Results & Data Vital Signs (Past 12 Hours) Vital Signs Temp Pulse Resp BP Pulse Ox O2 Del Method 10/13/23 07:42 Room Air 10/13/23 07:08 36.8 C 56 L 16 118/70 95 Room Air Medications Administered Home Medications Medication Instructions Recorded Confirmed Last Taken alfuzosin 10 mg tablet,extended 10 mg PO DAILY 10/07/23 10/07/23 Unknown release 24 hr apixaban 5 mg tablet (Eliquis) 5 mg PO BID 10/07/23 10/07/23 10/07/23 09:00 furosemide 40 mg tablet 40 mg PO DAILY 10/07/23 10/07/23 Unknown lisinopril 20 mg tablet 20 mg PO BID 10/07/23 10/07/23 Unknown spironolactone 50 mg tablet 100 mg PO DAILY 10/07/23 10/07/23 Unknown Active Medications Generic Name Dose Route Start Last Admin Trade Name Freq PRN Reason Stop Dose Admin Apixaban 5 mg 10/12/23 21:00 10/13/23 08:41 Apixaban 5 Mg Tablet PO 11/11/23 20:59 5 mg BID ROYAL Administration Calcium Carbonate 1,500 mg 10/08/23 17:53 10/09/23 07:46 Calcium Carbonate 500 Mg Chewable Tab PO 11/07/23 17:52 1,500 mg Q4H PRN Administration Indigestion Furosemide 40 mg 10/12/23 15:30 10/13/23 08:42 Furosemide 40 Mg Tab PO 11/11/23 15:29 40 mg QAM ROYAL Administration Piperacillin Sod/Tazobactam Sod 4.5 gm in 100 mls @ 25 mls/hr 10/08/23 02:00 10/13/23 08:58 Zosyn IV 10/18/23 01:59 Infused Q8H ROYAL Infusion Daptomycin 350 mg/ Syringe 7 mls @ 3.5 mls/min 10/09/23 11:00 10/13/23 11:44 IV 10/16/23 10:59 3.5 mls/min Q24H ROYAL Administration Protocol Insulin Aspart 0 units 10/10/23 21:00 10/13/23 08:29 Insulin Aspart Per Unit Charge SC 11/09/23 20:59 5 units ACHS ROYAL Administration Lactic Acid 1 gm 10/09/23 21:00 10/13/23 08:43 Ammonium Lactate 12% Lotion 225 Gm Btl EXT 11/08/23 20:59 1 gm BID ROYAL Administration Midodrine 2.5 mg 10/08/23 08:00 10/13/23 08:42 Midodrine Hcl 2.5 Mg Tab PO 11/07/23 07:59 2.5 mg TID@0800,1200,1700 ROYAL Administration Nystatin 1 appln 10/09/23 14:00 10/13/23 08:44 Nystatin Powder 15gm Btl EXT 11/08/23 13:59 1 appln TID ROYAL Administration Oxycodone HCl 5 mg 10/07/23 21:58 10/10/23 12:54 Oxycodone Hcl Ir 5 Mg Tab (Immediate Release) PO 10/21/23 21:57 5 mg Q4H PRN Administration Pain Pantoprazole Sodium 40 mg 10/11/23 21:00 10/13/23 08:41 Pantoprazole 40 Mg Tab PO 11/10/23 20:59 40 mg BID ROYAL Administration Senna/Docusate Sodium 1 tab 10/08/23 09:00 10/13/23 09:08 Docusate Sodium/Senna 50/8.6mg Tab PO 11/07/23 08:59 1 tab QAM ROYAL Administration (1) Hypotension Hypotension type: unspecified hypotension type Qualified Code(s): I95.9 - Hypotension, unspecified
[2023-10-14] MEDS: ACETAMINOPHEN 500 MG TAB PO PRN (00:06)
--- NOTE | 2023-10-14 11:03 | Infectious Disease Consult ---
Date of Service October 14, 2023 Telehealth Information I performed this visit using a real-time telehealth connection between my location and the patients location ([facility]). After connecting through interactive tele-video, patient was identified by name and date of and/or wristband check.Patient (or authorized healthcare sales development representative) was informed that this was a telemedicine visit and it was being conducted confidentially over secure lines. My office door was closed and no one else was present in the room with me.Patient (or authorized healthcare sales development representative) provided consent to proceed with the visit, expressed an understanding of privacy and security of the telemedicine visit, and gave permission to have a hospital sales development representative in the room in order to assist with the visit and to conduct portions of the visit, as needed. I informed the patient (or authorized healthcare sales development representative) that I reviewed their record and presented the opportunity for them to ask any questions regarding the visit today. The patient agreed to participate. Assessment & Plan (1) Intra-abdominal abscess: Plan: Continue zosyn and daptomycin (2) Sacral wound: Plan: Recommend 6 weeks of zosyn and daptomycin ad consider diverting ostomy Plan Recommend continuing zosyn and daptomycin for a total of 6 weeks if no further debridement is planned for his sacral decubitus .Would re-image in 2-3 weeks to determine resolution of his peritoneal loculated fluid collection .Obtain weekly CBC CMP and CK's while on daptomycin .Thank you for allowing us to participate in the care of this patient ID will sign off History of Present Illness History of Present Illness 73-year-old male PMHx CHF, hypertension, Eliquis Rx for heart disease, questionable cirrhosis, DM2 on oral medications, BPH, left buttock wound, past tobacco abuse who is admitted for worsening sacral decubitus ulcer and who presented to the emergency department at the recommendation of visiting nurses. Patient was noted to have a developing sacral wound and he also had recent care at multiple hospitals in the [facility]. The patient reports that approximately 3 weeks ago he underwent a paracentesis and he was told that he had underlying liver disease. The patient denies any abdominal pain. He denies any fevers, shakes, or chills. He denies any nausea or vomiting. Since arrival to hospital patient has had labs and imaging which independent reviewed. A CT scan of the head showed no acute intracranial hemorrhage. Chest x-ray showed some pulmonary vascular congestion and a small right pleural eff usion. A CT scan of the abdomen pelvis showed the patient had a partially loculated fluid collection on the right side of the abdomen measuring 34.4 x 14.1 x 21.4 cm. Patient was also noted to have a left-sided decubitus ulcer extending to the ischial tuberosity. Labs included CBC white blood cell count was elevated 11.0. Hemoglobin and hematocrit are 11.5 and 35.1. Platelet count was normal. Chemistry profile showed sodium was 134 with a normal potassium. BUN and creatinine were 57 and 2.5. Lactic acid level is 2.6. Urinalysis showed 2+ leukocyte Estrace with 11-20 white blood cells per high-power field. There is no bacteria on the study.Patient was started on zosyn and later daptomycin was added when superficial wound cultures from sacrum grew MRSA.A drain was placed for loculated peritoneal fluid but so far there is no growth Allergies Allergy/AdvReac Type Severity Reaction Status Date / Time No Known Allergies Allergy Unverified 10/10/23 07:49 Home Medications Medication Instructions Recorded Confirmed Type alfuzosin 10 mg tablet,extended 10 mg PO DAILY 10/07/23 10/07/23 History release 24 hr apixaban 5 mg tablet (Eliquis) 5 mg PO BID 10/07/23 10/07/23 History furosemide 40 mg tablet 40 mg PO DAILY 10/07/23 10/07/23 History lisinopril 20 mg tablet 20 mg PO BID 10/07/23 10/07/23 History spironolactone 50 mg tablet 100 mg PO DAILY 10/07/23 10/07/23 History Patient History Social History Smoking Status: Former smoker Second Hand Exposure: No; Do You Dip or Chew Tobacco: No; Hx Alcohol Use: Yes Hx Substance Use: No Preferred Language: Croatian Communication Ability: Effective Fresh Work Inspector Required: No Beliefs That Will Affect Care: None Current Living Situation: Spouse Feels Safe at Home: Yes Assistive Devices: Walker and Other Review of Systems Patient alert oriented no respiratory ditress Physical Exam Awake alert oriented Results & Data Vital Signs (Past 12 Hours) Vital Signs Temp Pulse Resp BP Pulse Ox O2 Del Method 10/14/23 07:28 Room Air 10/14/23 07:07 36.5 C 59 L 18 108/67 96 Room Air Laboratory Results MRSA RX M.I.C. --- --------- Clindamycin S <=0.5 Daptomycin S 1 Erythromycin R >4 Oxacillin R >2 Rifampin S <=1 Tetracycline S <=4 Trimeth/Sulfa R >2/38 Vancomycin S 1 S = SENSITIVE I = INTERMEDIATE R = RESISTANT Diagnostic Findings [place], [place] [phone] CT Scan Report Patient: LEIA JETER Admit Date: 10/07/23 MR#: [id number] Address1: [facility] [address] Acct ID:[id number] Address2: Date: 1950 [facility] Zip: [place] [address] CT OF THE ABDOMEN AND PELVIS WITHOUT CONTRAST CLINICAL HISTORY: reassess loculated abscess with drain COMPARISON STUDY: CT of the abdomen and pelvis October 07, 2023. TECHNIQUE: Axial images of the abdomen and pelvis were obtained without IV contrast. Images were reviewed in the axial, sagittal, and coronal planes. Automated exposure control was utilized for the study. A dose lowering technique was utilized adhering to the principles of ALARA. FINDINGS: A small right pleural effusion has mildly increased in size since prior exam. Associated right lower lobe airspace opacity with volume loss favors atelectasis. Evaluation of the abdomen and pelvis is suboptimal on this unenhanced exam. There has been interval placement of a percutaneous drain within the previously described right abdominal fluid collection. This collection has significantly decreased in size. Small to moderate size residual collection residual collection is present. The collection extends from the perihepatic space to the anterior pelvis. No new fluid collections are present. Body wall edema is present. Unenhanced images of the spleen, adrenal glands and pancreas are unremarkable. Water attenuation 4 x 1 cm right upper pole renal lesion favors a cyst. Small bilateral renal calculi measure up to 4 mm. There are no ureteral calculi. No hydronephrosis. There is no evidence for a bowel obstruction. Soft tissue thickening along the inferior aspect of the left ischial tuberosity is noted with several locules of gas. No definite bony erosion. There are also several locules of gas which extend to the base of the penis within the perineum. Findings are partially imaged on this examination. IMPRESSION: 1. Significant decrease in size of the right abdominal fluid collection following percutaneous drain placement. Small to moderate size residual collection. 2. Slight increase in size of a small right pleural effusion. Subpleural right lower lobe opacity with volume loss favors atelectasis. 3. Soft tissue thickening with fluid inferior to the left ischial tuberosity with several locules of gas which extend to the perineum and base of the penis. The findings are partially imaged on this exam but may be due to an underlying left buttock ulcer. (2) Sacral wound Encounter type: initial encounter Qualified Code(s): S31.000A - Unspecified open wound of lower back and pelvis without penetration into retroperitoneum, initial encounter
--- NOTE | 2023-10-14 11:18 | Nephrology Progress Note ---
Date of Service October 14, 2023 Assessment & Plan Admission and Anticipated Discharge Date Admission Date: October 07, 2023 Subjective Assessment & Plan (1) YAHAIRA (acute kidney injury): Plan: On admission creatinine was 2.52 and it is trending down and is down to 1.6 today. Almost certainly the initial acute kidney injury was related with profound hypotension he had with blood pressure in the 70s. Blood pressure is much better Continue to hold Lasix and spironolactone. given that the Abd fluid is not really Ascites related with Cirrhosis--no need for diuretics. Creat is down to 1.5 so almost near normal range renally adjust the dose of antibiotics strict input output charting avoid hypotension avoid contrast agent and NSAIDs. given improving renal function no need for further workup for the etiology of acute kidney injury. Obstructive uropathy is already ruled out on the CT scan. He does have nonobstructive kidney stone and renal cyst which can be addressed as an outpatient if patient desires. (2) CKD (chronic kidney disease): Plan: based on his comorbid disease profile with long-term diabetes congestive heart failure he most likely has some degree of CKD although I do not know his recent baseline creatinine. (3) Ascites: Plan: currently has a catheter and is draining (4) Sacral wound: Plan: he has been mostly bed-bound for many months now and as a result has a sacral wound in his buttock. He is getting antibiotics for this daptomycin and IV Zosyn. continue same Subjective Comfortable Denies any chest pain, sob, or nausea or vomiting Reports abdomen feeling better with drainage Review of Systems Review of Systems: All systems reviewed & are unremarkable except as noted in HPI & below Physical Exam Physical Exam: General - comfortable HENT No masses Chest clear to A Cor S1, S2 physiologic Abd: softer nontender no masses Ext no edema Results & Data Vital Signs (Past 12 Hours) Vital Signs Temp Pulse Resp BP Pulse Ox O2 Del Method 10/14/23 07:28 Room Air 10/14/23 07:07 36.5 C 59 L 18 108/67 96 Room Air
--- NOTE | 2023-10-14 12:44 | Hospitalist Progress Note ---
Date of Service October 14, 2023 Assessment & Plan (1) Hypotension: Plan: Mr. Iniguez is a 73 yo gentleman with medical history significant for CHF, hypertension, Eliquis Rx for heart disease, questionable cirrhosis, DM2 on oral medications, BPH, left buttock wound, past tobacco abuse who is admitted for worsening sacral decubitus ulcer. Patient with peritoneal fluid collections however CT without signs of cirrhosis. IR consulted to drain collection which was consistent with infection with drain placed on 10/07. Review of imaging reveals low suspicion of cirrhosis. Patient feeling much improved overall. No acute concerns after debridement 10/09. HIV test consented given accidental needle stick in OR--resulted negative. Spoke with Dr. Hernandez over TT on 10/12 who states that drain will likely need to stay in "for some time" with OP follow up and continued antibiotics. Will coordinate OP surgery follow up for drain removal given recommendation for IR on 10/07. Wound vac placed on 10/13. Patient pending recommendations from ID. Currently, encouraging patient to go to facility as wound vac requires notable care and the need for possible IV antibiotics. Patient declines at this time. Will formalize dispo plan once ID makes final recommendations. #Loculated right-sided peritoneal fluid collection, c/f abscess s/p peritoneal drain reports "paracentesis at the [facility] last month" No signs of liver disease on imaging at this time, nor is fluid c/w cirrhosis GI consulted -follow up fluid studies -Suggestive of "peritonitis" -possibly chronic inclusion cyst -Continue protonix bid, now PO continue zosyn -Fluid with no growth to date hold spironolactone and lasix at this time doesn't meet sepsis criteria--afebrile, HR <90, wbc <12 ID consult placed, likely Friday recs Message sent to Surgery to discuss how long to continue drain given decreased output and any further surgical intervention -Repeat CT reveals small residual collection -TT conversation with Dr. 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, stage IV #c/f osteomyelitis Surgery consulted--rotate q2h Wound care consult MRSA + s/p debridement on 10/09, tissue removed to bone -Follow up wound care instructions Given depth of ulcer/wound, continue Daptomycin ID consult pending Wound vac placed on 10/13 #Hypotension #Chronic Heart failure with preserved EF #Pulm HTN, PASP 50-60 ECHO 10/07, mildly reduced RVSP, PASP elevated Continue Midodrine Resume home lasix #YAHAIRA on likely CKD*improving no clear baseline, presumed underlying CKD BUN elevated Hold lasix Consult nephrology, reviewed recommendations -Avoid hypotension avoid nephrotoxic agents trend #Left-sided chest pain with troponin elevation stable plateaued trop elevation, likely multifactorial low suspicion for ACS #Anemia secondary Chronic disease likely(blood-streaked stools from constipation), unknown baseline No clear chronicity noted b12 and folate WNL, ferritin elevated, likely chronic iso renal disease Trend BMP continue PO ppi #Persistent A-fib ("heart disease as per patient" Rate controlled, noncompliant with eliquis continue eliquis #DM2 on oral medications, HgbA1C 6.1% SSI #Possible deconditioning PT/OT:possible rehab, patient declines at this time #past tobacco abuse encouraged continued cessation, no etoh use noted MSO PT OT rehab DVT prophylaxis. haylee DNR/DNI Admission and Anticipated Discharge Date Admission Date: October 07, 2023 Subjective NAEO Patient does not wish to go to rehab Wound vac placed Physical Exam Constitutional: WD/WN, vitals as above Respiratory: normal respiratory effort, lungs clear to auscultation Cardiovascular: irregularly irregular Results & Data Results & Data Vital Signs (Past 12 Hours) Vital Signs Temp Pulse Resp BP Pulse Ox O2 Del Method 10/14/23 11:41 93/53 L 10/14/23 07:28 Room Air 10/14/23 07:07 36.5 C 59 L 18 108/67 96 Room Air Medications Administered Home Medications Medication Instructions Recorded Confirmed Last Taken alfuzosin 10 mg tablet,extended 10 mg PO DAILY 10/07/23 10/07/23 Unknown release 24 hr apixaban 5 mg tablet (Eliquis) 5 mg PO BID 10/07/23 10/07/23 10/07/23 09:00 furosemide 40 mg tablet 40 mg PO DAILY 10/07/23 10/07/23 Unknown lisinopril 20 mg tablet 20 mg PO BID 10/07/23 10/07/23 Unknown spironolactone 50 mg tablet 100 mg PO DAILY 10/07/23 10/07/23 Unknown Active Medications Generic Name Dose Route Start Last Admin Trade Name Freq PRN Reason Stop Dose Admin Acetaminophen 1,000 mg 10/09/23 17:17 10/14/23 12:53 Acetaminophen 500 Mg Tab PO 11/06/23 21:58 1,000 mg Q8H PRN Administration fever/pain Apixaban 5 mg 10/12/23 21:00 10/14/23 08:35 Apixaban 5 Mg Tablet PO 11/11/23 20:59 5 mg BID ROYAL Administration Calcium Carbonate 1,500 mg 10/08/23 17:53 10/09/23 07:46 Calcium Carbonate 500 Mg Chewable Tab PO 11/07/23 17:52 1,500 mg Q4H PRN Administration Indigestion Furosemide 40 mg 10/12/23 15:30 10/14/23 08:34 Furosemide 40 Mg Tab PO 11/11/23 15:29 40 mg QAM ROYAL Administration Piperacillin Sod/Tazobactam Sod 4.5 gm in 100 mls @ 25 mls/hr 10/08/23 02:00 10/14/23 11:42 Zosyn IV 10/18/23 01:59 25 mls/hr Q8H ROYAL Administration Daptomycin 350 mg/ Syringe 7 mls @ 3.5 mls/min 10/09/23 11:00 10/14/23 11:08 IV 10/16/23 10:59 3.5 mls/min Q24H ROYAL Administration Protocol Insulin Aspart 0 units 10/10/23 21:00 10/14/23 12:14 Insulin Aspart Per Unit Charge SC 11/09/23 20:59 2 units ACHS ROYAL Administration Lactic Acid 1 gm 10/09/23 21:00 10/14/23 08:38 Ammonium Lactate 12% Lotion 225 Gm Btl EXT 11/08/23 20:59 1 gm BID ROYAL Administration Midodrine 2.5 mg 10/08/23 08:00 10/14/23 11:41 Midodrine Hcl 2.5 Mg Tab PO 11/07/23 07:59 2.5 mg TID@0800,1200,1700 ROYAL Administration Nystatin 1 appln 10/09/23 14:00 10/14/23 08:37 Nystatin Powder 15gm Btl EXT 11/08/23 13:59 1 appln TID ROYAL Administration Oxycodone HCl 5 mg 10/07/23 21:58 10/10/23 12:54 Oxycodone Hcl Ir 5 Mg Tab (Immediate Release) PO 10/21/23 21:57 5 mg Q4H PRN Administration Pain Pantoprazole Sodium 40 mg 10/11/23 21:00 10/14/23 08:37 Pantoprazole 40 Mg Tab PO 11/10/23 20:59 40 mg BID ROYAL Administration Senna/Docusate Sodium 1 tab 10/08/23 09:00 10/14/23 09:13 Docusate Sodium/Senna 50/8.6mg Tab PO 11/07/23 08:59 Not Given QAM ROYAL (1) Hypotension Hypotension type: unspecified hypotension type Qualified Code(s): I95.9 - Hypotension, unspecified
[2023-10-15 09:28] LABS: Hematocrit (blood only) 34.5 % (42.0-52.0); Hemoglobin 11.4 g/dl (14.0-18.0); Mean Corpuscular Hemoglobin 30.3 pg (25.0-34.0); Mean Corpuscular Volume 91.8 fL (80.0-100.0); Mean Platelet Volume 11.1 fL (9.4-12.4); Platelet Count 183 K/uL (130-400); RDW Coefficient of Variation 18.4 % (11.5-14.5); RDW Standard Deviation 61.2 fL (36.4-46.3); Red Blood Count 3.76 M/uL (4.70-6.10); White Blood Count 8.32 K/ul (4.8-10.8)
[2023-10-15 09:35] LABS: BUN Creatinine Ratio 16.2 (10-20); Calcium 9.1 mg/dl (8.6-10.3); Creatinine Clr Calc Pharmacy 48.5 ml/min; Est GFR (Non-African American) 39.7 ml/min; Potassium 3.5 mmol/L (3.5-5.1)
[2023-10-15] MEDS: ADVANCED PROBIOTIC 625 MG CAPSULE PO SCH (10:11)
--- NOTE | 2023-10-15 11:29 | Nephrology Progress Note ---
Date of Service October 15, 2023 Assessment & Plan Admission and Anticipated Discharge Date Admission Date: October 07, 2023 Subjective Assessment & Plan (1) YAHAIRA (acute kidney injury): Plan: On admission creatinine was 2.52 and it is trending down and is down to 1.6 today. Almost certainly the initial acute kidney injury was related with profound hypotension he had with blood pressure in the 70s. Blood pressure is much better Continue to hold Lasix and spironolactone. given that the Abd fluid is not really Ascites related with Cirrhosis--no need for diuretics. Creat is about 1.5--1.7 and would count this as baseline for him renally adjust the dose of antibiotics strict input output charting avoid hypotension avoid contrast agent and NSAIDs. given improving renal function no need for further workup for the etiology of acute kidney injury. Obstructive uropathy is already ruled out on the CT scan. He does have nonobstructive kidney stone and renal cyst which can be addressed as an outpatient if patient desires. Waiting for placement. (2) CKD (chronic kidney disease): Plan: based on his comorbid disease profile with long-term diabetes congestive heart failure he most likely has some degree of CKD although I do not know his recent baseline creatinine. Creat currently in the 1.5--1.7 range (3) Ascites: Plan: was loculated fluid from Infection (4) Sacral wound: Plan: he has been mostly bed-bound for many months now and as a result has a sacral wound in his buttock. He is getting antibiotics for this daptomycin and IV Zosyn. continue same Subjective Comfortable Denies any chest pain, sob, or nausea or vomiting Reports abdomen feeling better with drainage Review of Systems Review of Systems: All systems reviewed & are unremarkable except as noted in HPI & below Physical Exam Physical Exam: General - comfortable HENT No masses Chest clear to A Cor S1, S2 physiologic Abd: softer nontender no masses Ext no edema Results & Data Vital Signs (Past 12 Hours) Vital Signs Temp Pulse Resp BP Pulse Ox O2 Del Method 10/15/23 07:59 36.3 C L 57 L 16 106/68 94 Room Air
--- NOTE | 2023-10-15 16:38 | Hospitalist Progress Note ---
Date of Service October 15, 2023 Assessment & Plan (1) Intra-abdominal abscess: (2) 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 region: Plan: per admitting service notes with addendum: (1) Hypotension: Plan: Mr. Iniguez is a 73 yo gentleman with medical history significant for CHF, hypertension, Eliquis Rx for heart disease, questionable cirrhosis, DM2 on oral medications, BPH, left buttock wound, past tobacco abuse who is admitted for worsening sacral decubitus ulcer. Patient with peritoneal fluid collections however CT without signs of cirrhosis. IR consulted to drain collection which was consistent with infection with drain placed on 10/07. Review of imaging reveals low suspicion of cirrhosis. Patient feeling much improved overall. No acute concerns after debridement 10/09. HIV test consented given accidental needle stick in OR--resulted negative. Spoke with Dr. Hernandez over TT on 10/12 who states that drain will likely need to stay in "for some time" with OP follow up and continued antibiotics. Will coordinate OP surgery follow up for drain removal given recommendation for IR on 10/07. Wound vac placed on 10/13. Patient pending recommendations from ID. Currently, encouraging patient to go to facility as wound vac requires notable care and the need for possible IV antibiotics. Patient declines at this time. Will formalize dispo plan once ID makes final recommendations. #Loculated right-sided peritoneal fluid collection, c/f abscess s/p peritoneal drain reports "paracentesis at the [facility] last month" No signs of liver disease on imaging at this time, nor is fluid c/w cirrhosis GI consulted -follow up fluid studies -Suggestive of "peritonitis" -possibly chronic inclusion cyst -Continue protonix bid, now PO continue zosyn -Fluid with no growth to date hold spironolactone and lasix at this time doesn't meet sepsis criteria--afebrile, HR <90, wbc <12 ID consult placed, likely Friday recs Message sent to Surgery to discuss how long to continue drain given decreased output and any further surgical intervention -Repeat CT reveals small residual collection -TT conversation with Dr. 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, stage IV #c/f osteomyelitis Surgery consulted--rotate q2h Wound care consult MRSA + s/p debridement on 10/09, tissue removed to bone -Follow up wound care instructions Given depth of ulcer/wound, continue Daptomycin Wound vac placed on 10/13 #Hypotension #Chronic Heart failure with preserved EF #Pulm HTN, PASP 50-60 ECHO 10/07, mildly reduced RVSP, PASP elevated Continue Midodrine Lasix discontinued per Nephro #YAHAIRA on likely CKD*improving no clear baseline, presumed underlying CKD BUN elevated Consult nephrology, reviewed recommendations crea 1.6-1.5-1.6 DC lasix as per nephro #Left-sided chest pain with troponin elevation stable plateaued trop elevation, likely multifactorial low suspicion for ACS #Anemia secondary Chronic disease likely(blood-streaked stools from cons tipation), unknown baseline No clear chronicity noted b12 and folate WNL, ferritin elevated, likely chronic iso renal disease Trend BMP continue PO ppi #Persistent A-fib ("heart disease as per patient" Rate controlled, noncompliant with eliquis continue eliquis #DM2 on oral medications, HgbA1C 6.1% SSI #Possible deconditioning PT/OT:possible rehab, patient declines at this time #past tobacco abuse encouraged continued cessation, no etoh use noted [facility]O PT OT rehab DVT prophylaxis. elviais DNR/DNI Admission and Anticipated Discharge Date Admission Date: October 07, 2023 Subjective ff up for sacral decubitus ulcer infection, peritoneal fluid infection, etc seen resting in bed, comfortable states he feels fine overall has some shortness of breath when laying flat- usually after falling asleep, he wakes up attributes to anxiety given medical condition no chest pain, palpitations, dizziness no other symptoms Review of Systems Review of Systems: all noted and negative except for above Physical Exam Physical Exam: General- oriented x 3, not in distress, speaks in sentences with no effort or accessory muscle use Eyes- anicteric Neck- no JVD Lungs- clear breath sounds bilaterally, no rales/wheezes Heart- normal rate, regular rhythm; no murmurs Abdomen- normal bowel sounds, nondistended, soft, nontender drain in place: yellow output noted Extremities- no pretibial edema, no calf tenderness Neuro- alert, oriented x 3; no gross focal neurologic deficits Skin- warm & dry Results & Data Results & Data Vital Signs (Past 12 Hours) Vital Signs Temp Pulse Pulse Resp BP Pulse Ox O2 Del Method 10/15/23 14:14 36.8 C 64 16 119/71 97 Room Air 10/15/23 12:20 36.3 C L 63 16 118/62 95 Room Air 10/15/23 07:59 36.3 C L 57 L 16 106/68 94 Room Air all noted and reviewed including below
--- NOTE | 2023-10-15 17:06 | XRay Report ---
XR chest 1V portable CLINICAL HISTORY: shortness of breath TECHNIQUE: Single frontal radiograph of the chest was obtained. Comparison: Comparison is made to chest radiograph 10/07/2023 FINDINGS: No lines and tubes are seen. Cardiomegaly is noted. The lungs are clear. No evidence of pleural effus ion or pneumothorax. IMPRESSION: Previously noted pulmonary vascular congestion has improved. Stable cardiomegaly without acute abnorm alities. ACT 112: Negative or not required by law. Electronically signed by: Jose Omer M.D. 10/15/2023 5:05 PM
--- NOTE | 2023-10-16 18:01 | Hospitalist Progress Note ---
Date of Service October 16, 2023 delayed entry date of service noted above Assessment & Plan (1) Intra-abdominal abscess: (2) 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 region: Plan: per admitting service notes with addendum: (1) Hypotension: Plan: Mr. Iniguez is a 73 yo gentleman with medical history significant for CHF, hypertension, Eliquis Rx for heart disease, questionable cirrhosis, DM2 on oral medications, BPH, left buttock wound, past tobacco abuse who is admitted for worsening sacral decubitus ulcer. Patient with peritoneal fluid collections however CT without signs of cirrhosis. IR consulted to drain collection which was consistent with infection with drain placed on 10/07. Review of imaging reveals low suspicion of cirrhosis. Patient feeling much improved overall. No acute concerns after debridement 10/09. HIV test consented given accidental needle stick in OR--resulted negative. Spoke with Dr. Hernandez over TT on 10/12 who states that drain will likely need to stay in "for some time" with OP follow up and continued antibiotics. Will coordinate OP surgery follow up for drain removal given recommendation for IR on 10/07. Wound vac placed on 10/13. Patient pending recommendations from ID. Currently, encouraging patient to go to facility as wound vac requires notable care and the need for possible IV antibiotics. Patient declines at this time. Will formalize dispo plan once ID makes final recommendations. #Loculated right-sided peritoneal fluid collection, c/f abscess s/p peritoneal drain reports "paracentesis at the [facility] last month" No signs of liver disease on imaging at this time, nor is fluid c/w cirrhosis GI consulted -follow up fluid studies -Suggestive of "peritonitis" -possibly chronic inclusion cyst -Continue protonix bid, now PO continue zosyn -Fluid with no growth to date hold spironolactone and lasix at this time doesn't meet sepsis criteria--afebrile, HR <90, wbc <12 ID consult placed, likely Friday recs Message sent to Surgery to discuss how long to continue drain given decreased output and any further surgical intervention -Repeat CT reveals small residual collection -TT conversation with Dr. 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, stage IV #c/f osteomyelitis Surgery consulted--rotate q2h Wound care consult MRSA + s/p debridement on 10/09, tissue removed to bone -Follow up wound care instructions Given depth of ulcer/wound, continue Daptomycin Wound vac placed on 10/13 #Hypotension #Chronic Heart failure with preserved EF #Pulm HTN, PASP 50-60 ECHO 10/07, mildly reduced RVSP, PASP elevated Continue Midodrine Lasix discontinued per Nephro #YAHAIRA on likely CKD*improving no clear baseline, presumed underlying CKD BUN elevated Consult nephrology, reviewed recommendations crea 1.6-1.5-1.6 DC lasix as per nephro #Left-sided chest pain with troponin elevation stable plateaued trop elevation, likely multifactorial low suspicion for ACS #Anemia secondary Chronic disease likely(blood-streaked stools from constipation), unknown baseline No clear chronicity noted b12 and folate WNL, ferritin elevated, likely chronic iso renal disease Trend BMP continue PO ppi #Persistent A-fib ("heart disease as per patient" Rate controlled, noncompliant with eliquis continue eliquis #DM2 on oral medications, HgbA1C 6.1% SSI #Possible deconditioning PT/OT:possible rehab, patient declines at this time #past tobacco abuse encouraged continued cessation, no etoh use noted [facility]O PT OT rehab DVT prophylaxis. eliquis DNR/DNI Admission and Anticipated Discharge Date Admission Date: October 07, 2023 Subjective ff up for PF fluid collection, sacral decub ulcer, etc resting in bed, comfortable feels fine overall no chest pain, dyspnea, palpitations, dizziness no abdominal pain, nausea no other symptoms Review of Systems Review of Systems: all noted and negative except for above Results & Data Results & Data Vital Signs (Past 12 Hours) Vital Signs Temp Pulse Resp BP Pulse Ox O2 Del Method 10/16/23 14:55 36.7 C 51 L 18 126/70 97 Room Air 10/16/23 08:01 36.7 C 62 16 101/59 L 96 Room Air all noted and reviewed including below
--- NOTE | 2023-10-17 18:49 | Hospitalist Progress Note ---
Date of Service October 17, 2023 Assessment & Plan (1) Intra-abdominal abscess: (2) 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 region: Plan: per admitting service notes with addendum: (1) Hypotension: Plan: Mr. Iniguez is a 73 yo gentleman with medical history significant for CHF, hypertension, Eliquis Rx for heart disease, questionable cirrhosis, DM2 on oral medications, BPH, left buttock wound, past tobacco abuse who is admitted for worsening sacral decubitus ulcer. Patient with peritoneal fluid collections however CT without signs of cirrhosis. IR consulted to drain collection which was consistent with infection with drain placed on 10/07. Review of imaging reveals low suspicion of cirrhosis. Patient feeling much improved overall. No acute concerns after debridement 10/09. HIV test consented given accidental needle stick in OR--resulted negative. Spoke with Dr. Hernandez over TT on 10/12 who states that drain will likely need to stay in "for some time" with OP follow up and continued antibiotics. Will coordinate OP surgery follow up for drain removal given recommendation for IR on 10/07. Wound vac placed on 10/13. Patient pending recommendations from ID. Currently, encouraging patient to go to facility as wound vac requires notable care and the need for possible IV antibiotics. Patient declines at this time. Will formalize dispo plan once ID makes final recommendations. #Loculated right-sided peritoneal fluid collection, c/f abscess s/p peritoneal drain reports "paracentesis at the [facility] last month" No signs of liver disease on imaging at this time, nor is fluid c/w cirrhosis GI consulted -follow up fluid studies -Suggestive of "peritonitis" -possibly chronic inclusion cyst -Continue protonix bid, now PO continue zosyn -Fluid with no growth to date hold spironolactone and lasix at this time doesn't meet sepsis criteria--afebrile, HR <90, wbc <12 ID consult placed, likely Friday recs Message sent to Surgery to discuss how long to continue drain given decreased output and any further surgical intervention -Repeat CT reveals small residual collection -TT conversation with Dr. 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, stage IV #c/f osteomyelitis Surgery consulted--rotate q2h Wound care consult MRSA + s/p debridement on 10/09, tissue removed to bone -Follow up wound care instructions Given depth of ulcer/wound, continue Daptomycin Wound vac placed on 10/13 #Hypotension #Chronic Heart failure with preserved EF #Pulm HTN, PASP 50-60 ECHO 10/07, mildly reduced RVSP, PASP elevated Continue Midodrine Lasix discontinued per Nephro 10/16 Bp stable overall monitor #YAHAIRA on likely CKD*improving no clear baseline, presumed underlying CKD BUN elevated Consult nephrology, reviewed recommendations crea 1.6-1.5-1.6 DC lasix as per nephro #Left-sided chest pain with troponin elevation stable plateaued trop elevation, likely multifactorial low suspicion for ACS #Anemia secondary Chronic disease likely(blood-streaked stools from constipation), unknown baseline No clear chronicity noted b12 and folate WNL, ferritin elevated, likely chronic iso renal disease Trend BMP continue PO ppi #Persistent A-fib ("heart disease as per patient" Rate controlled, noncompliant with eliquis continue eliquis #DM2 on oral medications, HgbA1C 6.1% SSI #Possible deconditioning PT/OT:possible rehab, patient declines at this time #past tobacco abuse encouraged continued cessation, no etoh use noted [facility] PT OT rehab DVT prophylaxis. eliquis DNR/DNI Admission and Anticipated Discharge Date Admission Date: October 07, 2023 Subjective ff up for peritoneal fluid collection, sacral decubitus ulcer, etc seen resting in bed, sleeping but easily awakened states he feels fine overall denies shortness of breath no abdominal pain no other new symptoms Review of Systems Review of Systems: all noted and negative except for above Physical Exam Physical Exam: General- oriented x 3, not in distress, speaks in sentences with no effort or accessory muscle use Eyes- anicteric Neck- no JVD Lungs- clear breath sounds bilaterally, no rales/wheezes Heart- normal rate, regular rhythm; no murmurs Abdomen- normal bowel sounds, nondistended, soft, nontender drain in place: scant yellow ouput noted Extremities- no pretibial edema, no calf tenderness Neuro- alert, oriented x 3; no gross focal neurologic deficits Skin- warm & dry Results & Data Results & Data Vital Signs (Past 12 Hours) Vital Signs Temp Pulse Resp BP BP Pulse Ox O2 Del Method 10/17/23 15:37 36.9 C 62 18 118/68 98 Room Air 10/17/23 12:23 37.0 C 60 16 120/67 98 Room Air 10/17/23 09:40 36.6 C 62 18 115/73 97 Room Air all noted and reviewed including below
[2023-10-17] MEDS: DAPTOmycin 350 MG in SYRINGE 0 ML IV SCH (20:59)
--- NOTE | 2023-10-18 15:10 | Hospitalist Progress Note ---
Date of Service October 18, 2023 Assessment & Plan (1) Intra-abdominal abscess: (2) 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 region: Plan: per admitting service notes with addendum: (1) Hypotension: Plan: Mr. Iniguez is a 73 yo gentleman with medical history significant for CHF, hypertension, Eliquis Rx for heart disease, questionable cirrhosis, DM2 on oral medications, BPH, left buttock wound, past tobacco abuse who is admitted for worsening sacral decubitus ulcer. Patient with peritoneal fluid collections however CT without signs of cirrhosis. IR consulted to drain collection which was consistent with infection with drain placed on 10/07. Review of imaging reveals low suspicion of cirrhosis. Patient feeling much improved overall. No acute concerns after debridement 10/09. HIV test consented given accidental needle stick in OR--resulted negative. Spoke with Dr. Hernandez over TT on 10/12 who states that drain will likely need to stay in "for some time" with OP follow up and continued antibiotics. Will coordinate OP surgery follow up for drain removal given recommendation for IR on 10/07. Wound vac placed on 10/13. Patient pending recommendations from ID. Currently, encouraging patient to go to facility as wound vac requires notable care and the need for possible IV antibiotics. Patient declines at this time. Will formalize dispo plan once ID makes final recommendations. #Loculated right-sided peritoneal fluid collection, c/f abscess s/p peritoneal drain reports "paracentesis at the [facility] last month" No signs of liver disease on imaging at this time, nor is fluid c/w cirrhosis GI consulted -follow up fluid studies -Suggestive of "peritonitis" -possibly chronic inclusion cyst -Continue protonix bid, now PO continue zosyn -Fluid with no growth to date hold spironolactone and lasix at this time doesn't meet sepsis criteria--afebrile, HR <90, wbc <12 ID consult placed, likely Friday recs Message sent to Surgery to discuss how long to continue drain given decreased output and any further surgical intervention -Repeat CT reveals small residual collection -TT conversation with Dr. 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, stage IV #c/f osteomyelitis Surgery consulted--rotate q2h Wound care consult MRSA + s/p debridement on 10/09, tissue removed to bone -Follow up wound care instructions Given depth of ulcer/wound, continue Daptomycin Wound vac placed on 10/13 #Hypotension #Chronic Heart failure with preserved EF #Pulm HTN, PASP 50-60 ECHO 10/07, mildly reduced RVSP, PASP elevated Continue Midodrine Lasix discontinued per Nephro 10/17 Bp stable overall monitor #YAHAIRA on likely CKD*improving no clear baseline, presumed underlying CKD BUN elevated Consult nephrology, reviewed recommendations crea 1.6-1.5-1.6 DC lasix as per nephro #Left-sided chest pain with troponin elevation stable plateaued trop elevation, likely multifactorial low suspicion for ACS #Anemia secondary Chronic disease likely(blood-streaked stools from constipation), unknown baseline No clear chronicity noted b12 and folate WNL, ferritin elevated, likely chronic iso renal disease Trend BMP continue PO ppi #Persistent A-fib ("heart disease as per patient" Rate controlled, noncompliant with eliquis continue eliquis #DM2 on oral medications, HgbA1C 6.1% SSI #Possible deconditioning PT/OT:possible rehab, patient declines at this time #past tobacco abuse encouraged continued cessation, no etoh use noted [facility] PT OT rehab DVT prophylaxis. eliquis DNR/DNI Admission and Anticipated Discharge Date Admission Date: October 07, 2023 Subjective ff up for peritoneal fluid collection, etc seen resting in bed, comfortable sleeping, not in distress Review of Systems Review of Systems: all noted and negative except for above Physical Exam Physical Exam: General- sleeping, breathing with no effort or accessory muscle use Neck- no JVD Lungs- clear breath sounds bilaterally Heart- normal rate, regular rhythm; no murmurs Abdomen- normal bowel sounds, nondistended, soft, nontender drain in place with minimal yellowish output Extremities- no pretibial edema, no calf tenderness Neuro-no gross focal deficits Skin- warm & dry Results & Data Results & Data Vital Signs (Past 12 Hours) Vital Signs Temp Pulse Resp BP Pulse Ox O2 Del Method 09/07/24 07:41 36.7 C 51 L 18 109/67 97 Room Air all noted and reviewed including below
--- NOTE | 2023-10-18 23:38 | Urology Consultation ---
Date of Consultation October 18, 2023 Assessment & Plan (1) Balanitis: I evaluated the patient in room 360 and from a urologic perspective recommend the following: Due to the patient's reported dysuria I would recommend obtaining a urinalysis as well as a culture. The medical service has already ordered this. This can be treated accordingly Upon evaluation of the patient's perineal/scrotum/penis appears to be suffering potentially from a balanitis. For this problem I have recommended that hygiene measures be employed cleansing the area with sterile water twice daily and then applying clotrimazole cream twice daily which I have ordered. Will monitor the patient's clinical response to this with further recommendations to follow It is uncertain if the patient was suffering from a paraphimosis as his foreskin was incompletely reduced at the time of my exam. I did discuss with nursing staff and they noted that they fully reduced his foreskin after providing care. The patient did admit that after urinating he did not fully reduce his foreskin I did explain to him the importance of fully reducing his foreskin in order to avoid a phimosis. At the time my exam I did easily reduce his foreskin and the patient did note that this alleviated some of the discomfort he was experiencing at the time of my exam. Hopefully with treatment of his balanitis with the measures noted above he will have continued improvement. Additional recommendations will be made based on his clinical response to the above Supervising Physician Co-Signing Physician Notes Agree with above UA is not indicative of infection but his underlying balanitis certainly can cause some of the symptoms He is very tender foreskin right now and he is uncircumcised I suspect that broad-spectrum antibiotics with altered skin shreya and led to the subsequent infection of the foreskin Topical antifungals are appropriate, continue to monitor History of Present Illness Reason for Consultation: Dysuria and penile pain Attending Physician: Panda Renteria MD History of Present Illness This is a 73-year-old male who has been admitted to [facility] since 10/07/2023. Since admission to the hospital the patient has been treated for an intra-abdominal abscess for which a peritoneal drain has been placed. For this problem infectious disease has been consulted and the patient has been receiving daptomycin and Zosyn and a 6-week course of antibiotics has been recommended. The patient has also been treated for a pressure ulcer of the left ischial tuberosity for which the patient underwent debridement and subsequent VAC placement. Urology was consulted as the patient notes for the past 24 to 48 hours he has been having some dysuria along with pain along the head of his penis. He denies any fevers, shakes, or chills and merely reports that he has some dysuria. He does report pain at the head of his penis with any manipulation of the head of his penis as well as his foreskin, as he is uncircumcised. He denies any hematuria. He denies any flank pain. He denies any pain in his scrotum or perineal area. I discussed with the nurse caring for the patient and she did provide hygiene/care to the patient's penis and she noted at the time of her exam there is some whitish material and some excoriations of the penile head with some punctate bleeding. She notes that this improves with hygiene measures. Most recent labs that the patient has available were from 10/15/2023 where CBC revealed white blood cell count and platelet count were normal. His hemoglobin and hematocrit were 11.4 and 34.5. The patient's most recent chemistry profile was from the same date where sodium was 135 with a normal potassium and his BUN and creatinine were 27 and 1.6. Patient's most recent urinalysis was from 10/07/2023 which showed 2+ leukocyte Estrace and 11-20 white blood cells per high-power field. There is no bacteria or nitrates noted on this study. The patient did have a urine culture from this date which was not indicative of infection. At the time of my interview the patient was resting comfortably in bed and he was in no distress. Allergies Allergy/AdvReac Type Severity Reaction Status Date / Time No Known Allergies Allergy Unverified 10/10/23 07:49 Home Medications Medication Instructions Recorded Confirmed Type alfuzosin 10 mg tablet,extended 10 mg PO DAILY 10/07/23 10/07/23 History release 24 hr apixaban 5 mg tablet (Eliquis) 5 mg PO BID 10/07/23 10/07/23 History furosemide 40 mg tablet 40 mg PO DAILY 10/07/23 10/07/23 History lisinopril 20 mg tablet 20 mg PO BID 10/07/23 10/07/23 History spironolactone 50 mg tablet 100 mg PO DAILY 10/07/23 10/07/23 History Patient History Surgical History S/P debridement (10/10/23) ischial tuberosity wound Debridement, 7 x 6 x 5 cm (Not Applicable) - Chad Hernandez DO, FACS Social History Smoking Status: Former smoker Second Hand Exposure: No; Do You Dip or Chew Tobacco: No; Hx Alcohol Use: Yes Hx Substance Use: No Preferred Language: Martiniquais Communication Ability: Effective Nursing Clinical Director Required: No Beliefs That Will Affect Care: None Current Living Situation: Spouse Feels Safe at Home: Yes Assistive Devices: Walker and Other Review of Systems Review of Systems: All systems reviewed & are unremarkable except as noted in HPI & below Physical Exam Physical Exam: Wound VAC is in place over left ischial region and appears to be functioning appropriately Constitutional: WD/WN, vitals as above Eyes: no conjunctival abnormality Wears glasses ENMT: Ears: no hearing impairment and no external ear abnormality Mouth: no oropharynx abnormality Neck: trachea midline Respiratory: normal respiratory effort; no respiratory distress and no labored breathing Cardiovascular: Rate/Rhythm: regular rate and regular rhythm Gastrointestinal (Abdomen): Abdomen is soft and nondistended. Is nontender to palpation Musculoskeletal: No calf tenderness Neurologic: moves all extremities Psychiatric: A+Ox3, euthymic affect Genitourinary: The patient's genital/penis/perineum were examined. In the perineal area there is no areas of erythema, crepitus, or eschar. There are no open areas or areas of drainage. The patient's scrotum was examined and was noted to be not erythematous and nonswollen. I do not appreciate any masses in the patient's scrotum. There is no pain whatsoever with palpation of the scrotum. There is no pain with palpation of the penile shaft which appeared normal without erythema. The head of the patient's penis revealed that he had an uncircumcised penis. The head of the penis had some erythema without any purulent drainage at the time of my exam. At the time of my exam the patient's foreskin was incompletely reduced but was easily reduced at the time of my exam. Results & Data Vital Signs (Past 12 Hours) Vital Signs Temp Pulse Resp BP Pulse Ox O2 Del Method 10/18/23 20:00 36.8 C 54 L 21 115/66 97 Room Air 10/18/23 15:45 36.7 C 48 L 18 113/64 96 Room Air PG Care Time/CCT Total # of Minutes Spent Total Time Spent with Patient: Total time spent is greater than 50% in coordination of care (as documented) at patient's floor/unit and/or counseling patient: Coding Level of Care Code 77792 INT INP/OBS CARE 3/75MIN Diagnoses Balanitis N48.1
[2023-10-19] MEDS: PHENAZOPYRIDINE HCL 200 MG TAB PO PRN (00:21)
[2023-10-19] MEDS: CLOTRIMAZOLE 1% CR 15 GM TUBE EXT SCH (00:21)
[2023-10-19 00:45] LABS: Appearance Urine Clear (Clear); Bacteria Urine Automated None Seen (None Seen); Bilirubin Urine Negative (Negative); Blood Urine 1+ (Negative); Cast Urine Automated 0-2 /lpf (0-2); Color Urine Dark Yellow; Epithelial Cell Urine Auto 0-2 /hpf (0-2); Glucose Urine UA Negative (Negative); Ketones Urine Trace (Negative); Leukocyte Esterase Urine 1+ (Negative); Nitrite Urine Negative (Negative); Protein Urine 1+ (Negative); Specific Gravity Urine 1.031 (1.000-1.030); Urobilinogen Urine Negative (Negative)
--- NOTE | 2023-10-19 10:38 | Urology Progress Note ---
Date of Service October 19, 2023 Assessment & Plan (1) Balanitis: Plan: 1. Dysuria Await final culture results but initial UA is not particularly concerning 2. Balanoposthitis Continue topical clotrimazole Should start to see improvement over the next several days please call us if further issues arise during this hospitalization Admission and Anticipated Discharge Date Admission Date: October 07, 2023 Subjective No further changes overnight Doing okay from a standpoint Foreskin is quite tender but otherwise voiding adequately Physical Exam Physical Exam: Foreskin is covering the glans He does have erythema and milky discharge all consistent with fungal balanoposthitis Results & Data Vital Signs (Past 12 Hours) Vital Signs Temp Pulse Resp BP Pulse Ox O2 Del Method 10/19/23 07:47 36.8 C 53 L 18 111/62 96 Room Air PG Care Time/CCT Total # of Minutes Spent Total Time Spent with Patient: Total time spent is greater than 50% in coordination of care (as documented) at patient's floor/unit and/or counseling patient: Coding Level of Care Code 22715 SUB INP/OBS CARE 2/35MIN Diagnoses Balanitis N48.1
--- NOTE | 2023-10-19 14:51 | Hospitalist Progress Note ---
Date of Service October 19, 2023 Assessment & Plan (1) Intra-abdominal abscess: (2) 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 region: Plan: per admitting service notes with addendum: (1) Hypotension: Plan: Mr. Iniguez is a 73 yo gentleman with medical history significant for CHF, hypertension, Eliquis Rx for heart disease, questionable cirrhosis, DM2 on oral medications, BPH, left buttock wound, past tobacco abuse who is admitted for worsening sacral decubitus ulcer. Patient with peritoneal fluid collections however CT without signs of cirrhosis. IR consulted to drain collection which was consistent with infection with drain placed on 10/07. Review of imaging reveals low suspicion of cirrhosis. Patient feeling much improved overall. No acute concerns after debridement 10/09. HIV test consented given accidental needle stick in OR--resulted negative. Spoke with Dr. Hernandez over TT on 10/12 who states that drain will likely need to stay in "for some time" with OP follow up and continued antibiotics. Will coordinate OP surgery follow up for drain removal given recommendation for IR on 10/07. Wound vac placed on 10/13. Patient pending recommendations from ID. Currently, encouraging patient to go to facility as wound vac requires notable care and the need for possible IV antibiotics. Patient declines at this time. Will formalize dispo plan once ID makes final recommendations. #Loculated right-sided peritoneal fluid collection, c/f abscess s/p peritoneal drain reports "paracentesis at the [facility] last month" No signs of liver disease on imaging at this time, nor is fluid c/w cirrhosis GI consulted -follow up fluid studies -Suggestive of "peritonitis" -possibly chronic inclusion cyst -Continue protonix bid, now PO continue zosyn -Fluid with no growth to date hold spironolactone and lasix at this time doesn't meet sepsis criteria--afebrile, HR <90, wbc <12 ID consult placed, likely Friday recs Message sent to Surgery to discuss how long to continue drain given decreased output and any further surgical intervention -Repeat CT reveals small residual collection -TT conversation with Dr. 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, stage IV #c/f osteomyelitis Surgery consulted--rotate q2h Wound care consult MRSA + s/p debridement on 10/09, tissue removed to bone -Follow up wound care instructions Given depth of ulcer/wound, continue Daptomycin Wound vac placed on 10/13 #Balanoposthitis - topical Clotrimazole started - Urologist consulted #Hypotension #Chronic Heart failure with preserved EF #Pulm HTN, PASP 50-60 ECHO 10/07, mildly reduced RVSP, PASP elevated Continue Midodrine Lasix discontinued per Nephro 10/18 Bp stable overall monitor #YAHAIRA on likely CKD*improving no clear baseline, presumed underlying CKD BUN elevated Consult nephrology, reviewed recommendations crea 1.6-1.5-1.6 DC lasix as per nephro #Left-sided chest pain with troponin elevation stable plateaued trop elevation, likely multifactorial low suspicion for ACS #Anemia secondary Chronic disease likely(blood-streaked stools from constipation), unknown baseline No clear chronicity noted b12 and folate WNL, ferritin elevated, likely chronic iso renal disease Trend BMP continue PO ppi #Persistent A-fib ("heart disease as per patient" Rate controlled, noncompliant with eliquis continue eliquis #DM2 on oral medications, HgbA1C 6.1% SSI #Possible deconditioning PT/OT:possible rehab, patient declines at this time #past tobacco abuse encouraged continued cessation, no etoh use noted [facility] PT OT rehab DVT prophylaxis. eliquis DNR/DNI Admission and Anticipated Discharge Date Admission Date: October 07, 2023 Subjective Follow-up for peritoneal fluid collection, etc. Seen resting in bed, comfortable, not in distress Reports significant pain over the glans, no problems with voiding Otherwise feels okay overall Review of Systems Review of Systems: all noted and negative except for above Physical Exam Physical Exam: General- oriented x 3, not in distress, speaks in sentences with no effort or accessory muscle use Eyes- anicteric Neck- no JVD Lungs- clear breath sounds bilaterally, no crackles or wheezing Heart- normal rate, regular rhythm; no murmurs Abdomen- normal bowel sounds, nondistended, soft, no tenderness Drain in place with scant yellow output Extremities- no pretibial edema, no calf tenderness Genitalia - erythema, mild edema of foreskin Neuro- alert, oriented x 3; no gross focal neurologic deficits Skin- warm & dry Results & Data Results & Data Vital Signs (Past 12 Hours) Vital Signs Temp Pulse Resp BP Pulse Ox O2 Del Method 10/19/23 07:47 36.8 C 53 L 18 111/62 96 Room Air all noted and reviewed including below
--- NOTE | 2023-10-20 16:35 | Hospitalist Progress Note ---
Date of Service October 20, 2023 Assessment & Plan (1) Intra-abdominal abscess: (2) 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 region: Plan: per admitting service notes with addendum: (1) Hypotension: Plan: Mr. Iniguez is a 73 yo gentleman with medical history significant for CHF, hypertension, Eliquis Rx for heart disease, questionable cirrhosis, DM2 on oral medications, BPH, left buttock wound, past tobacco abuse who is admitted for worsening sacral decubitus ulcer. Patient with peritoneal fluid collections however CT without signs of cirrhosis. IR consulted to drain collection which was consistent with infection with drain placed on 10/07. Review of imaging reveals low suspicion of cirrhosis. Patient feeling much improved overall. No acute concerns after debridement 10/09. HIV test consented given accidental needle stick in OR--resulted negative. Spoke with Dr. Hernandez over TT on 10/12 who states that drain will likely need to stay in "for some time" with OP follow up and continued antibiotics. Will coordinate OP surgery follow up for drain removal given recommendation for IR on 10/07. Wound vac placed on 10/13. Patient pending recommendations from ID. Currently, encouraging patient to go to facility as wound vac requires notable care and the need for possible IV antibiotics. Patient declines at this time. Will formalize dispo plan once ID makes final recommendations. #Loculated right-sided peritoneal fluid collection, c/f abscess s/p peritoneal drain reports "paracentesis at the [facility] last month" No signs of liver disease on imaging at this time, nor is fluid c/w cirrhosis GI consulted -follow up fluid studies -Suggestive of "peritonitis" -possibly chronic inclusion cyst -Continue protonix bid, now PO continue zosyn -Fluid with no growth to date hold spironolactone and lasix at this time doesn't meet sepsis criteria--afebrile, HR <90, wbc <12 ID consult placed, likely Friday recs Message sent to Surgery to discuss how long to continue drain given decreased output and any further surgical intervention -Repeat CT reveals small residual collection -TT conversation with Dr. 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, stage IV #c/f osteomyelitis Surgery consulted--rotate q2h Wound care consult MRSA + s/p debridement on 10/09, tissue removed to bone -Follow up wound care instructions Given depth of ulcer/wound, continue Daptomycin Wound vac placed on 10/13 #Balanoposthitis - topical Clotrimazole started - Urologist consulted continue to monitor #Hypotension #Chronic Heart failure with preserved EF #Pulm HTN, PASP 50-60 ECHO 10/07, mildly reduced RVSP, PASP elevated Continue Midodrine Lasix discontinued per Nephro 10/19 Bp stable overall monitor #YAHAIRA on likely CKD*improving no clear baseline, presumed underlying CKD BUN elevated Consult nephrology, reviewed recommendations crea 1.6-1.5-1.6 DC lasix as per nephro #Left-sided chest pain with troponin elevation stable plateaued trop elevation, likely multifactorial low suspicion for ACS #Anemia secondary Chronic disease likely(blood-streaked stools from constipation), unknown baseline No clear chronicity noted b12 and folate WNL, ferritin elevated, likely chronic iso renal disease Trend BMP continue PO ppi #Persistent A-fib ("heart disease as per patient" Rate controlled, noncompliant with eliquis continue eliquis #DM2 on oral medications, HgbA1C 6.1% SSI #Possible deconditioning PT/OT:possible rehab, patient declines at this time #past tobacco abuse encouraged continued cessation, no etoh use noted MSO PT OT rehab DVT prophylaxis. eliquis DNR/DNI Admission and Anticipated Discharge Date Admission Date: October 07, 2023 Subjective ff up for sacral decub ulcer etc seen resting in bed, not in distress still having pain over the glans no problems voiding no abdominal pain, nausea no chest pain, dyspnea, palpitations, dizziness no other symptoms Review of Systems Review of Systems: all noted and negative except for above Physical Exam Physical Exam: General- oriented x 3, not in distress, speaks in sentences with no effort or accessory muscle use Eyes- anicteric Neck- no JVD Lungs- clear breath sounds bilaterally, no crackles Heart- normal rate, regular rhythm; no murmurs Abdomen- normal bowel sounds, nondistended, soft, nontender drain in place: no signs of infection Genitalia- penis: no edema noted, no redness Extremities- no pretibial edema, no calf tenderness Neuro- alert, oriented x 3; no gross focal neurologic deficits Skin- warm & dry Results & Data Results & Data Vital Signs (Past 12 Hours) Vital Signs Temp Pulse Resp BP BP Pulse Ox O2 Del Method 10/20/23 15:40 36.7 C 57 L 16 114/69 96 Room Air 10/20/23 07:38 36.7 C 51 L 18 117/71 95 Room Air all noted and reviewed including below
--- NOTE | 2023-10-21 10:29 | Communication Note ---
Date of Service: October 21, 2023 73 year old male with history significant for CHF, hypertension, T2DM and others below admitted for worsening sacral decubitus ulcer s/p percutaneous drainage. Last WBC 10/[address] 10/11 w/ significant decrease in size of the right abdominal fluid collection following percutaneous drain placement. GI will sign off. Recall GI as needed Thank you for allowing us to participate in the care of this patient. Please call with any acute changes, questions or concerns. Please see addendum below with additional recommendation from my [place] pervising physician. GI Attending: Patient seen and examined. Case discussed with Ester NOVOA. Defer to surgical management. IP GI Service will sign off. Terrance Osorio MD
--- NOTE | 2023-10-21 12:37 | Hospitalist Progress Note ---
Date of Service October 21, 2023 Assessment & Plan (1) Intra-abdominal abscess: (2) 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 region: Plan: (1) Intra-abdominal abscess: (2) 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 region: Plan: per admitting service notes with addendum: (1) Hypotension: Plan: Mr. Iniguez is a 73 yo gentleman with medical history significant for CHF, hype rtension, Eliquis Rx for heart disease, questionable cirrhosis, DM2 on oral medications, BPH, left buttock wound, past tobacco abuse who is admitted for worsening sacral decubitus ulcer. Patient with peritoneal fluid collections however CT without signs of cirrhosis. IR consulted to drain collection which was consistent with infection with drain placed on 10/07. Review of imaging reveals low suspicion of cirrhosis. Patient feeling much improved overall. No acute concerns after debridement 10/09. HIV test consented given accidental needle stick in OR--resulted negative. Spoke with Dr. Hernandez over TT on 10/12 who states that drain will likely need to stay in "for some time" with OP follow up and continued antibiotics. Will coordinate OP surgery follow up for drain removal given recommendation for IR on 10/07. Wound vac placed on 10/13. Patient pending recommendations from ID. Currently, encouraging patient to go to facility as wound vac requires notable care and the need for possible IV antibiotics. Patient declines at this time. Will formalize dispo plan once ID makes final recommendations. #Loculated right-sided peritoneal fluid collection, c/f abscess s/p peritoneal drain reports "paracentesis at the [facility] last month" No signs of liver disease on imaging at this time, nor is fluid c/w cirrhosis GI consulted -follow up fluid studies -Suggestive of "peritonitis" -possibly chronic inclusion cyst -Continue protonix bid, now PO continue zosyn -Fluid with no growth to date hold spironolactone and lasix at this time doesn't meet sepsis criteria--afebrile, HR <90, wbc <12 ID consult placed, likely Friday recs Message sent to Surgery to discuss how long to continue drain given decreased output and any further surgical intervention -Repeat CT reveals small residual collection -TT conversation with Dr. 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, stage IV #c/f osteomyelitis Surgery consulted--rotate q2h Wound care consult MRSA + s/p debridement on 10/09, tissue removed to bone -Follow up wound care instructions Given depth of ulcer/wound, continue Daptomycin Wound vac placed on 10/13 #Balanoposthitis - topical Clotrimazole started - Urologist consulted - improving #Hypotension #Chronic Heart failure with preserved EF #Pulm HTN, PASP 50-60 ECHO 10/07, mildly reduced RVSP, PASP elevated Continue Midodrine Lasix discontinued per Nephro 10/20 Bp stable overall monitor #YAHAIRA on likely CKD*improving no clear baseline, presumed underlying CKD BUN elevated Consult nephrology, reviewed recommendations crea 1.6-1.5-1.6 DC lasix as per nephro #Left-sided chest pain with troponin elevation stable plateaued trop elevation, likely multifactorial low suspicion for ACS #Anemia secondary Chronic disease likely(blood-streaked stools from constipation), unknown baseline No clear chronicity noted b12 and folate WNL, ferritin elevated, likely chronic iso renal disease continue PO ppi #Persistent A-fib ("heart disease as per patient" Rate controlled, noncompliant with eliquis continue eliquis #DM2 on oral medications, HgbA1C 6.1% SSI #Possible deconditioning PT/OT:possible rehab, patient declines at this time #past tobacco abuse encouraged continued cessation, no etoh use noted MSO DVT prophylaxis. 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, patient needs SNF for IV abx, wound vac, peritoneal drain, etc Admission and Anticipated Discharge Date Admission Date: October 07, 2023 Subjective ff up for peritoneal fluid collection, sacral decub ulcer, etc seen resting in bed, not in distress feels fine overall denies abdominal pain, nausea, fever/chills no back pain pain over the glans penis improving, no urinary symptoms no other symptoms Review of Systems Review of Systems: all noted and negative except for above Physical Exam Physical Exam: General- oriented x 3, not in distress, speaks in sentences with no effort or accessory muscle use Eyes- anicteric Neck- no JVD Lungs- clear breath sounds bilaterally, no rales/wheezes Heart- normal rate, regular rhythm; no murmurs Abdomen- normal bowel sounds, nondistended, soft, nontender drain in the RLQ: very scant output, no bleeding/discharge/signs of infection at insertion site Extremities- no pretibial edema, no calf tenderness Genitalia- Penis: no erythema/edema/tenderness/discharge Neuro- alert, oriented x 3; no gross focal neurologic deficits Skin- warm & dry Results & Data Results & Data Vital Signs (Past 12 Hours) Vital Signs Temp Pulse Resp BP Pulse Ox O2 Del Method 10/21/23 07:32 36.9 C 48 L 18 111/65 96 Room Air all noted and reviewed including below
[2023-10-22 08:47] LABS: Hematocrit (blood only) 37.1 % (42.0-52.0); Mean Corpuscular Hemoglobin 30.7 pg (25.0-34.0); Mean Corpuscular Hgb Conc 32.3 g/dL (32.0-36.0); Mean Corpuscular Volume 94.9 fL (80.0-100.0); Mean Platelet Volume 10.7 fL (9.4-12.4); Platelet Count 216 K/uL (130-400); RDW Coefficient of Variation 19.5 % (11.5-14.5); RDW Standard Deviation 67.4 fL (36.4-46.3); Red Blood Count 3.91 M/uL (4.70-6.10); White Blood Count 8.41 K/ul (4.8-10.8)
[2023-10-22 08:57] LABS: BUN Creatinine Ratio 17.2 (10-20); Calcium 9.5 mg/dl (8.6-10.3); Creatinine Clr Calc Pharmacy 66.4 ml/min; Est GFR (African American) 67.3 ml/min
--- NOTE | 2023-10-22 12:26 | Hospitalist Progress Note ---
Date of Service October 22, 2023 Assessment & Plan (1) Intra-abdominal abscess: (2) 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 region: Plan: Intra-abdominal abscess: 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 region: Hypotension: 73 yo gentleman with medical history significant for CHF, hypertension, Eliquis Rx for heart disease, questionable cirrhosis, DM2 on oral medications, BPH, left buttock wound, past tobacco abuse who is admitted for worsening sacral decubitus ulcer. CT abd/Pelvis: 1. Significant decrease in size of the right abdominal fluid collection following percutaneous drain placement. Small to moderate size residual collection. 2. Slight increase in size of a small right pleural effusion. Subpleural right lower lobe opacity with volume loss favors atelectasis. 3. Soft tissue thickening with fluid inferior to the left ischial tuberosity with several locules of gas which extend to the perineum and base of the penis. The findings are partially imaged on this exam but may be due to an underlying left buttock ulcer. Patient had peritoneal fluid collections however CT without signs of cirrhosis. Loculated right peritoneal fluid collection, concerning for possible intra abd abscess IR consulted to drain collection with drain placed on 10/07. Fluid culture had no growth till date Review of imaging reveals low suspicion of cirrhosis. Dr Theodore (Previous Provider) had discussed with surgeon who recommend keeping IR drain till follow up outpatient. S/p Ischial tuberosity wound debridement 10/09. HIV test consented given accidental needle stick in OR--resulted negative. 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 ID recommendations noted. Recommends IV daptomycin and zosyn for 6 weeks (from 10/09) Monitor CPK periodically while on dapto #Balanitis On topical Clotrimazole started Urologist eval and recs noted #Hypotension #Chronic Heart failure with preserved EF #Pulm HTN, PASP 50-60 ECHO 10/07, mildly reduced RVSP, PASP elevated Continue Midodrine Lasix discontinued per Nephro BP stable so far #YAHAIRA on likely CKD*improving No clear baseline, presumed underlying CKD BUN elevated Nephro recs noted Lasix stopped Cr is 1.2 today #Left-sided chest pain with troponin elevation Stable plateaued trop elevation, likely multifactorial Low suspicion for ACS #Anemia secondary Chronic disease likely(blood-streaked stools from constipation), unknown baseline No clear chronicity noted Vit b12 and folate WNL, ferritin elevated, likely chronic in the setting of renal disease continue PO ppi #Persistent A-fib ("heart disease as per patient" Rate controlled, noncompliant with eliquis Continue eliquis #DM2 on oral medications, HgbA1C 6.1% SSI #Physical deconditioning PT/OT:possible rehab, #past tobacco abuse encouraged continued cessation, no etoh use noted Check arterial duplex DVT prophylaxis. haylee DNR/DNI Discussed extensively with patient. He is worried about with dementia at home. He stated he cannot do out of pocket cost for home IV antibiotics. However, he also does not want to go to rehab/SNF due to at home. He states that he clarke s people helping take of right now. I discussed with him the need for facility for IV abx and wound care since he cannot afford at home but his insurance will cover placement from my understanding from . I relayed his concerns to Patient does not want me to call his daughter but ok with discussing with Gunner his grandson who lives close to his house. Called grandson but no answer. Will try later I spent a total of 55 minutes coordinating, documenting and providing care for this patient excluding time spent in performance of separately billed services Admission and Anticipated Discharge Date Admission Date: October 07, 2023 Subjective Patient seen and examined Patient reports some pain in right leg and buttock wound aread Reports feeling weaker Denies any other complaints on ROS Physical Exam Constitutional: + well hydrated; no acute distress Eyes: PERRL, conjunctivae normal, anicteric sclerae ENMT: external ear and nose normal, oropharynx normal Respiratory: normal respiratory effort, lungs clear to auscultation Cardiovascular: S1 S2 Gastrointestinal (Abdomen): normal bowel sounds, soft, nontender, no hepatosplenomegaly Musculoskeletal: Some bruise on right leg with tenderness Wound vac on buttock in situ Neurologic: PERRL, EOMI, accommodation nl, no face palsy, no dysarthria Psychiatric: A+Ox3, euthymic affect Results & Data Results & Data Vital Signs (Past 12 Hours) Vital Signs Temp Pulse Resp BP Pulse Ox O2 Del Method 10/22/23 08:04 36.7 C 51 L 18 117/69 99 Room Air Laboratory Results Abnormal lab results 10/21/23 10/21/23 10/22/23 Range/Units 16:57 20:36 07:59 RBC (4.70-6.10) M/uL Hgb (14.0-18.0) g/dl Hct (42.0-52.0) % RDW Std Deviation (36.4-46.3) fL RDW Coeff of Ramu (11.5-14.5) % Glucose (70-99(Fasting)) mg/dl POC Glucose 143 H 144 H 113 H (70-99) mg/dl Total Creatine Kinase (30-223) U/L 10/22/23 10/22/23 Range/Units 08:17 11:46 RBC 3.91 L (4.70-6.10) M/uL Hgb 12.0 L (14.0-18.0) g/dl Hct 37.1 L (42.0-52.0) % RDW Std Deviation 67.4 H (36.4-46.3) fL RDW Coeff of Ramu 19.5 H (11.5-14.5) % Glucose 112 H (70-99(Fasting)) mg/dl POC Glucose 157 H (70-99) mg/dl Total Creatine Kinase 23 L (30-223) U/L
[2023-10-22] MEDS: DAPTOmycin 600 MG in SYRINGE 0 ML IV SCH (21:18)
--- NOTE | 2023-10-23 00:36 | Ultrasound Report ---
Exam(s): US ARTERIAL BILATERAL LOWER EXTREMITIES EXAM: US Duplex Bilateral Lower Extremities Arteries CLINICAL HISTORY: Reason for exam: Leg wounds. Assess vascular system. TECHNIQUE: Real-time duplex ultrasound scan of the bilateral lower extremity arteries integrating B-mode two-dimensional vascular structure, Doppler spectral analysis and color flow Doppler imaging. COMPARISON: No relevant prior studies available. FINDINGS: There is atherosclerotic vascular disease of the bilateral lower extremity arteries. Right lower extremity arteries are patent. There are mostly monophasic waveforms in the calf arteries and dorsalis pedis artery. The right lower extremity arteries otherwise appear multiphasic. No velocity elevations are demonstrated to suggest significant stenoses. Left lower extremity arteries are patent. There is monophasic flow in the dorsalis pedis artery and distal peroneal artery. The left lower extremity arteries appear otherwise multiphasic. No velocity elevations are demonstrated to suggest significant stenoses. Left lower extremity arteries are patent, multiphasic, and without velocity elevations to suggest significant stenoses. IMPRESSION: 1. No occlusion or hemodynamically significant stenosis identified in either lower extremity. 2. Monophasic waveforms in the right calf and right dorsalis pedis artery. Monophasic waveforms in the left distal peroneal artery and the left dorsalis pedis artery. The presence of monophasic waveform suggests more proximal stenoses which are not directly visualized on this exam. Electronically signed by: Manisha Prieto M.D. 10/23/23 00:35 AM
--- NOTE | 2023-10-23 12:51 | Hospitalist Progress Note ---
Date of Service October 23, 2023 Assessment & Plan (1) Intra-abdominal abscess: (2) 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 region: Plan: Intra-abdominal abscess: 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 region: Hypotension: 73 yo gentleman with medical history significant for CHF, hypertension, Eliquis Rx for heart disease, questionable cirrhosis, DM2 on oral medications, BPH, left buttock wound, past tobacco abuse who is admitted for worsening sacral decubitus ulcer. CT abd/Pelvis: 1. Significant decrease in size of the right abdominal fluid collection following percutaneous drain placement. Small to moderate size residual collection. 2. Slight increase in size of a small right pleural effusion. Subpleural right lower lobe opacity with volume loss favors atelectasis. 3. Soft tissue thickening with fluid inferior to the left ischial tuberosity with several locules of gas which extend to the perineum and base of the penis. The findings are partially imaged on this exam but may be due to an underlying left buttock ulcer. Patient had peritoneal fluid collections however CT without signs of cirrhosis. Loculated right peritoneal fluid collection, concerning for possible intra abd abscess IR consulted to drain collection with drain placed on 10/07. Fluid culture had no growth till date Review of imaging reveals low suspicion of cirrhosis. Dr Theodore (Previous Provider) had discussed with surgeon who recommend keeping IR drain till follow up outpatient. S/p Ischial tuberosity wound debridement 10/09. HIV test consented given accidental needle stick in OR--resulted negative. 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 ID recommendations noted. Recommends IV daptomycin and zosyn for 6 weeks (from 10/09).End date 12/22/23 Monitor CPK periodically while on dapto #Balanitis On topical Clotrimazole started Urologist eval and recs noted #Hypotension #Chronic Heart failure with preserved EF #Pulm HTN, PASP 50-60 ECHO 10/07, mildly reduced RVSP, PASP elevated Continue Midodrine Lasix discontinued per Nephro Lisinopril had been on hold. Stop on dc BP stable so far #YAHAIRA on likely CKD*improving No clear baseline, presumed underlying CKD Cr was 2.09 on admission BUN elevated Nephro recs noted Lasix stopped Cr is 1.2 on 10/22/23 #Left-sided chest pain with troponin elevation Stable plateaued trop elevation, likely multifactorial Low suspicion for ACS #Anemia secondary Chronic disease likely(blood-streaked stools from constipation), unknown baseline No clear chronicity noted Vit b12 and folate WNL, ferritin elevated, likely chronic in the setting of renal disease continue PO ppi # A-fib per records Rate controlled, noncompliant with eliquis Continue eliquis HR has been trending low occasionally. Repeat EKG #DM2 on oral medications (metformin), HgbA1C 6.1% SSI #Physical deconditioning PT/OT:possible rehab, #past tobacco abuse encouraged continued cessation, no etoh use noted Arterial duplex did not show any occlusion or hemodynamically significant stenosis in both LE. Has monophasic waveform in right calf/dorsalis pedic artery, left distal peroneal and left dorsalis pedis artery DVT prophylaxis. eliquis DNR/DNI Attempts to reach grandson were unsuccessful After multiple conversations with patient and between patient and counter caser, He finally agreed to go to [facility] which is close to his home PICC consent obtained and ordered I spent a total of 45 minutes coordinating, documenting and providing care for this patient excluding time spent in performance of separately billed services Admission and Anticipated Discharge Date Admission Date: October 07, 2023 Physical Exam Constitutional: + well hydrated; no acute distress Eyes: PERRL, conjunctivae normal, anicteric sclerae ENMT: external ear and nose normal, oropharynx normal Respiratory: normal respiratory effort, lungs clear to auscultation Gastrointestinal (Abdomen): normal bowel sounds, soft, nontender, no hepatosplenomegaly Neurologic: PERRL, EOMI, accommodation nl, no face palsy, no dysarthria Psychiatric: A+Ox3, euthymic affect Results & Data Results & Data Vital Signs (Past 12 Hours) Vital Signs Temp Pulse Resp BP Pulse Ox O2 Del Method 10/23/23 08:16 36.5 C 47 L 18 129/68 97 Room Air 10/23/23 02:06 36.5 C 56 L 20 133/69 97 Room Air Laboratory Results Abnormal lab results 10/22/23 10/22/23 10/22/23 Range/Units 17:11 19:37 21:07 POC Glucose 133 H 161 H 195 H (70-99) mg/dl 10/23/23 10/23/23 Range/Units 08:11 11:50 POC Glucose 130 H 159 H (70-99) mg/dl
--- NOTE | 2023-10-23 17:32 | XRay Report ---
XR chest 1V portable CLINICAL HISTORY: PICC tip placement TECHNIQUE: Single frontal radiograph of the chest was obtained. Comparison: Comparison is made to chest radiograph 10/15/2023 FINDINGS: Right PICC terminates in the mid SVC. Cardiomegaly is noted. Lungs are underinflated but clear. No ev idence of pleural effusion or pneumothorax. IMPRESSION: Satisfactory position of the PICC. Stable cardiomegaly. ACT 112: Negative or not required by law. Electronically signed by: Jose Omer M.D. 10/23/2023 5:31 PM
[2023-10-23 22:32] VITALS: O2SAT 98
[2023-10-24 07:32] VITALS: BP 129/69; PULSE 56; RESP 16; TEMP 97.7
--- NOTE | 2023-10-24 12:19 | Discharge Summary ---
Date of Service October 24, 2023 Admission HPI Per Admitting Provider History obtained from patient and records. Medical history significant for CHF, hypertension, Eliquis Rx for heart disease, cirrhosis, DM2 on oral medications, BPH, left buttock wound, past tobacco abuse. Recent confinement at [facility] last month for abdominal distention and leg swelling attributed to heart issues as per patient. Patient told he had heart and liver disease. Fluid had to be removed from his belly. Discharged new medications to [facility] which include blood pressure medicines and a blood thinner. Patient left [facility] AGAINST MEDICAL ADVICE because he was not happy with the care. Progressive illness since leaving [place]. Increased abdominal distention with right sided discomfort. Worsening left buttock wound pain. Constipation resulting in hematochezia. No emesis. Usual SOB on exertion. Chronic cough symptoms. Dizziness described as lightheadedness. Transient headache symptoms. Lowest SBP of 60s noted at home from time to time. Today, patient noted intermittent left-sided chest pain. EMS called to patient's home by home health today. SBP 70s upon arrival at the ER. IV Zosyn and IV fluids administered at the ER. Medical History as above Surgical History : Hernia surgery Family History : Lung cancer, breast cancer Personal/Social history : Past tobacco abuse, no EtOH intake, retired [id number] employee Admission Exam Per Admitting Provider GENERAL: Comfortable, obese, no respiratory distress SKIN: Pallor, warm HEENT: Pale palpebral conjunctivae, no ptosis, dry buccal mucosa NECK : Supple, no tenderness CHEST : CTA, no tenderness HEART : Irregular, no obvious murmurs ABDOMEN: Some distention, right-sided abdominal tenderness BACK : Ulcerated wound, left buttock with foul-smelling yellow dried drainage EXTREMITIES : Bilateral LE venous stasis, no tenderness, no other conspicuous deformities noted NEUROLOGIC : Coherent, no facial asymmetry, no other gross focality Principal Diagnosis Sacral wound infection S/p debridement Intra abdominal abscess Acute on chronic kidney disease Discharge Exam Constitutional + well hydrated; no acute distress Eyes PERRL, conjunctivae normal, anicteric sclerae ENMT external ear and nose normal, oropharynx normal Respiratory normal respiratory effort, lungs clear to auscultation Cardiovascular S1 S2 Gastrointestinal (Abdomen) normal bowel sounds, soft, nontender, no hepatosplenomegaly RLQ drain in situ Musculoskeletal Some bruise on right leg with tenderness Wound vac on buttock in situ Neurologic PERRL, EOMI, accommodation nl, no face palsy, no dysarthria Psychiatric A+Ox3, euthymic affect Discharge Data Allergies Allergy/AdvReac Type Severity Reaction Status Date / Time No Known Allergies Allergy Unverified 10/10/23 07:49 Consultations 10/07/23 19:04 ED Decision to Admit Stat 10/08/23 01:54 HIM [Consult Health Information Management] Routine 10/08/23 01:58 Consult General Surgery Routine 10/08/23 10:35 Consult Gastroenterology Routine 10/08/23 16:28 Consult Nephrology Routine 10/10/23 15:00 Consult Infectious Diseases Routine 10/19/23 08:00 Consult Urology Routine Procedures Performed Operation Date: 10/10/23 08:05 Actual Procedures p Sacral Wound Debridement(Not Applicable) - Chad Hernandez DO, FACS Ordered Studies 10/07/23 20:39 CT Abd and Pelvis [CT abd pelvis wo con] Stat Lung bases: Unremarkable. No mass. No consolidation. Pleural space: Small RIGHT pleural effusion. ABDOMEN: Liver: Unremarkable. Gallbladder and bile ducts: Unremarkable. No calcified stones. No ductal dilation. Pancreas: Unremarkable. No ductal dilation. Spleen: Unremarkable. No splenomegaly. Adrenals: Unremarkable. No mass. Kidneys and ureters: Nonobstructing LEFT renal stones measuring up to 4 mm. RIGHT upper pole renal cyst measures 4 cm. Stomach and bowel: Unremarkable. No obstruction. No mucosal thickening. PELVIS: Appendix: No findings to suggest acute appendicitis. Bladder: Unremarkable. No stones. Reproductive: Unremarkable as visualized. ABDOMEN and PELVIS: Intraperitoneal space: Partially loculated fluid collection on the RIGHT side of the abdomen, measuring approximately 34.4 x 14.1 x 21.4 cm. This may represent ascites. No free air. Bones/joints: Left-sided decubitus ulcer extends to the ischial tuberosity. This is only partially included in the [id number], correlate with physical exam. No acute fracture. No dislocation. Soft tissues: Unremarkable. Vasculature: Unremarkable. No abdominal aortic aneurysm. Lymph nodes: Unremarkable. No enlarged lymph nodes. IMPRESSION: 1. Partially loculated fluid collection on the RIGHT side of the abdomen, measuring approximately 34.4 x 14.1 x 21.4 cm. This may represent ascites. 2. Small RIGHT pleural effusion. 3. Nonobstructing LEFT renal stones measuring up to 4 mm. 4. Left-sided decubitus ulcer extends to the ischial tuberosity. This is only partially included in the [id number]-aa-slew, correlate with physical exam. 10/07/23 20:40 CT head/brain wo con Stat No acute intracranial hemorrhage. No midline shift or mass effect. The territorial gongora-white matter differentiation is maintained throughout. Age-related cerebral volume loss. Periventricular and subcortical white matter hypoattenuation, consistent with chronic microangiopathy. The visualized orbits appear grossly unremarkable. The calvarium is intact. The visualized paranasal sinuses and mastoid air cells are grossly clear. IMPRESSION: No acute intracranial hemorrhage, midline shift, or mass effect. 10/08/23 10:[address] periton/retro w/gdnce Stat Right lower quadrant abscess drain placement as above. Performed, dictated, and signed by Ramiro Trevino PA-C; to be co-signed by Dr. Nestor Mabry. 10/12/23 13:45 CT abd pelvis wo con Routine A small right pleural effusion has mildly increased in size since prior exam. Associated right lower lobe airspace opacity with volume loss favors atelectasis. Evaluation of the abdomen and pelvis is suboptimal on this unenhanced exam. There has been interval placement of a percutaneous drain within the previously described right abdominal fluid collection. This collection has significantly decreased in size. Small to moderate size residual collection residual collection is present. The collection extends from the perihepatic space to the anterior pelvis. No new fluid collections are present. Body wall edema is present. Unenhanced images of the spleen, adrenal glands and pancreas are unremarkable. Water attenuation 4 x 1 cm right upper pole renal lesion favors a cyst. Small bilateral renal calculi measure up to 4 mm. There are no ureteral calculi. No hydronephrosis. There is no evidence for a bowel obstruction. Soft tissue thickening along the inferior aspect of the left ischial tuberosity is noted with several locules of gas. No definite bony ero bennett. There are also several locules of gas which extend to the base of the penis within the perineum. Findings are partially imaged on this examination. IMPRESSION: 1. Significant decrease in size of the right abdominal fluid collection following percutaneous drain placement. Small to moderate size residual collection. 2. Slight increase in size of a small right pleural effusion. Subpleural right lower lobe opacity with volume loss favors atelectasis. 3. Soft tissue thickening with fluid inferior to the left ischial tuberosity with several locules of gas which extend to the perineum and base of the penis. The findings are partially imaged on this exam but may be due to an underlying left buttock ulcer. 10/22/23 16:16 US arterial duplex LE BI Urgent There is atherosclerotic vascular disease of the bilateral lower extremity arteries. Right lower extremity arteries are patent. There are mostly monophasic waveforms in the calf arteries and dorsalis pedis artery. The right lower extremity arteries otherwise appear multiphasic. No velocity elevations are demonstrated to suggest significant stenoses. Left lower extremity arteries are patent. There is monophasic flow in the dorsalis pedis artery and distal peroneal artery. The left lower extremity arteries appear otherwise multiphasic. No velocity elevations are demonstrated to suggest significant stenoses. Left lower extremity arteries are patent, multiphasic, and without velocity elevations to suggest significant stenoses. IMPRESSION: 1. No occlusion or hemodynamically significant stenosis identified in either lower extremity. 2. Monophasic waveforms in the right calf and right dorsalis pedis artery. Monophasic waveforms in the left distal peroneal artery and the left dorsalis pedis artery. The presence of monophasic waveform suggests more proximal stenoses which are not directly visualized on this exam. Hospital Course (1) Intra-abdominal abscess: (2) 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 region: Intra-abdominal abscess: 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 region: Hypotension: 73 yo gentleman with medical history significant for CHF, hypertension, Eliquis Rx for heart disease, questionable cirrhosis, DM2 on oral medications, BPH, left buttock wound, past tobacco abuse who is admitted for worsening sacral decubitus ulcer. CT abd/Pelvis: 1. Significant decrease in size of the right abdominal fluid collection following percutaneous drain placement. Small to moderate size residual collection. 2. Slight increase in size of a small right pleural effusion. Subpleural right lower lobe opacity with volume loss favors atelectasis. 3. Soft tissue thickening with fluid inferior to the left ischial tuberosity with several locules of gas which extend to the perineum and base of the penis. The findings are partially imaged on this exam but may be due to an underlying left buttock ulcer. Patient had peritoneal fluid collections however CT without signs of cirrhosis. Loculated right peritoneal fluid collection, concerning for possible intra abd abscess IR consulted to drain collection with drain placed on 10/07. Fluid culture had no growth till date Review of imaging reveals low suspicion of cirrhosis. Dr Theodore (Previous Provider) had discussed with surgeon who recommend keeping IR drain till follow up outpatient. S/p Ischial tuberosity wound debridement 10/09. HIV test consented given accidental needle stick in OR--resulted negative. 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 ID recommended IV daptomycin and zosyn for 6 weeks (from 10/09).End date 12/22/23 PCP to monitor weekly CBC, CMP, CPK while on daptomycin PICC line needs to be removed once antibiotics is completed Patient needs to follow up with Surg outpatient #Balanitis Resolved with topical clotrimazole #Hypotension #Chronic Heart failure with preserved EF #Pulm HTN, PASP 50-60 ECHO 10/07, mildly reduced RVSP, PASP elevated Continue Midodrine started inpatient Lasix discontinued per Nephro Home lisinopril stopped #YAHAIRA on likely CKD No clear baseline, presumed underlying CKD Cr was 2.09 on admission Was managed with Form [employer]ter [employer]per Lasix stopped Cr is 1.2 on 10/22/23 #Left-sided chest pain with troponin elevation Stable plateaued trop elevation, likely multifactorial Low suspicion for ACS #Anemia secondary Chronic disease likely(blood-streaked stools from constipation), unknown baseline No clear chronicity noted Vit b12 and folate WNL, ferritin elevated, likely chronic in the setting of renal disease # A-fib per records Rate controlled, noncompliant with eliquis Continue eliquis #DM2 on oral medications (metformin), HgbA1C 6.1% Patient discharged to SNF for rehab and IV antibiotics PCP may need to repeat CT Abdomen Pelvis in 2 weeks to assess resolution of wound and collection Total Time Total Time Spent Total Time Spent (In Minutes): 45 Total Time Includes: Examination of the Patient, Discharge Planning and Medication Reconciliation Discharge Plan Discharge Items Patient Disposition: Transfer [facility] Fac Reason For Visit: HYPOTENSION Discharge Diagnosis: Sacral wound infection S/p debridement Intra abdominal abscess Acute on chronic kidney disease Activity: As commented below Activity Comment: Per physical therapy recommendations Non-emergency contact: Primary Care Provider and Surgeon Call non-emergency contact if: you have any medication questions Follow-up/Referrals: Chad Hernandez DO, FACS [Physician] - (Call surgery office for follow up ) PCP,NO [Primary Care Provider] - Diet: Carb Consistent or DM2, Heart Healthy and Low Sodium (2gm) Addtl Attending Provider Instructions: Mr Iniguez You were admitted in the hospital and managed for the above listed diagnoses. You had debridement of sacral wound and wound vac was placed. A drain was also put in your abdomen. You are being discharged on IV antibiotics (daptomycin and zosyn) until 11/21/23 You need to have weekly blood work (CBC, CMP, CK) while on antibiotics to be done and monitored by the nursing facility. Please ensure follow up with surgery in a week regarding your drain. Your lisinopril, lasix and aldactone were stopped due to low blood pressure You were started on midodrine to assist blood pressure It was a pleasure taking care of you. Pending Studies at Discharge: No Stand-Alone Forms: My [facility] Skilled Items Patient informed of condition?: Yes DNR: Yes Discharge Level of Care: Skilled Communicable Disease: No Discharge Prognosis: Stable Lines: PICC Urinary Catheter: No Medications and DC Order Prescriptions: New midodrine 2.5 mg Tablet 2.5 mg PO TID@0800,1200,1700 Qty: 90 0RF Zosyn in dextrose (iso-osm) 4.5 gram/100 mL piggyback 4.5 g IV Q8H daptomycin in 0.9 % sod chlor 500 mg/50 mL piggyback 600 mg IV DAILY Rx Instructions: administer over 30 mins Continued alfuzosin 10 mg tablet extended release 24 hr 10 mg PO DAILY Qty: 30 0RF Eliquis 5 mg tablet 5 mg PO BID Qty: 60 0RF Changed metformin 750 mg tablet extended release 24 hr 750 mg PO BID Qty: 60 0RF Discontinued furosemide 40 mg tablet 40 mg PO DAILY lisinopril 20 mg tablet 20 mg PO BID spironolactone 50 mg tablet 100 mg PO DAILY Rx Instructions: filled 09/24/23 for 30 days. It looks like per pharmacy list ther was a new dose ordered for 25 mg daily. said he has been taking 100mg daily. Discharge Orders: Discharge Order (Routine); Ordered 10/24/23 Ordered By: Starla Donahue/Other Patient Handouts: Nutrition for Wound Healing, Managing Type 2 Diabetes Admission Data Admit Date/Time: 10/07/23 23:54 Attending Provider: Starla Rob I. Admit Provider: Manolo Honeycutt Primary Care Provider: PCP,NO Other Providers: Manolo Honeycutt; Scott Ludwig; Warren Spring; Alfredo Adams; Ramiro Mello; hCad Hernandez; Dara Randolph; Larry Bruce; Tavon Amor; Nolberto Conway; Carmelo Chavis; Son Ellis I; Chapito Culp; Han Parsons; Anshul Piña; Onur Go I.; Cedric Carter II; Sheryl Cope; Carlos Enrique Reynolds; Adelfo Garcia; Dale Molina; Chloé Ruano; Aditya Adorno; Chad Bird; Zay Spence; Anya Mello; Shaq Trevino; Henny Rousseau; Jessica Cornell; Shan Thompson; Hortencia Ojeda; Sandeep Skinner; Lukas Lawrence; Donnell Izquierdo; aPnda Renteria Other Interventions: Discharge Summary Assessment (RN) Last Done: 10/24/23 13:35
--- NOTE | 2023-10-24 13:20 | Electrocardiogram Report ---
Test Reason : Blood Pressure : */* mmHG Vent. Rate : 60 BPM Atrial Rate : 102 BPM P-R Int : * ms QRS Dur : 124 ms QT Int : 478 ms P-R-T Axes : * -37 127 degrees QTcB Int : 478 ms Atrial fibrillation Left axis deviation Non-specific intra-ventricular conduction delay Abnormal ECG When compared with ECG of 07-Oct-2023 22:04, No significant change Confirmed by Efraín Segal ([id number]) on 10/24/2023 1:20:13 PM Referred By: REFERRED SELF Confirmed By: Efraín Segal
== END 2023-10-24 14:43 | DRG 570 ==
LOC: ED 17:34 → EDINP 23:54 → SUATTDRO 23:54 → EDINP 10-08 00:32 → 2S 10-08 04:26 → 3W 10-12 18:06